=== PATIENT | male | born 1995 | race Caucasian/White ===

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

== ENCOUNTER 2017-01-20 13:19 | Emergency (ER) | payer BC, OTHER ==
[~2017-01-20] VITALS: Ht 193 cm; Wt 65.0 kg
[~2017-01-20 13:19] MED LIST changes: +ARIP1TAB13 PO; +CLON-409 PO; +CLON1 PO; +ESCI20TA PO; +LEVO.075 PO; +LIPI10TA PO; +NEUR400C PO; +TOPA100T11 PO
[2017-01-20 13:43] VITALS: BP 134/76; PULSE 96; RESP 18; TEMP 98.7; O2SAT 99
[2017-01-20 15:16] LABS: AUTOMATED NEUTROPHIL # 5.2 TH/MM3 (1.8-7.7); BASOPHIL # 0.1 TH/MM3 (0-0.2); EOSINOPHIL # 0.3 TH/MM3 (0-0.4); EOSINOPHIL % 4.1 % (0.0-4.0); HEMATOCRIT 35.4 % (39.0-51.0); LYMPH % 22.3 % (9.0-44.0); LYMPHOCYTE # 1.8 TH/MM3 (1.0-4.8); MEAN CORPUSCULAR HEMOGLOBIN 21.4 PG (27.0-34.0); MONO % 8.9 % (0.0-8.0); NEUT % 63.7 % (16.0-70.0); PLATELET COUNT 267 TH/MM3 (150-450); RED BLOOD COUNT 5.13 MIL/MM3 (4.50-5.90); RED CELL DISTRIBUTION WIDTH 19.5 % (11.6-17.2); WHITE BLOOD COUNT 8.1 TH/MM3 (4.0-11.0)
[2017-01-20 15:19] LABS: HEMO FLAGS AUTO DIFF
[2017-01-20 15:32] LABS: ALT (GPT) 36 U/L (9-52); ANION GAP 8 MEQ/L (5-15); AST (GOT) 32 U/L (15-39); BICARBONATE 25.9 MEQ/L (21.0-32.0); BLOOD UREA NITROGEN 16 MG/DL (7-18); CHLORIDE 110 MEQ/L (98-107); GLOMERULAR FILTRATION RATE 118 ML/MIN (>89); SODIUM (NA) 144 MEQ/L (136-145)
[2017-01-20 15:33] LABS: ALKALINE PHOSPHATASE 119 U/L (45-117); TOTAL BILIRUBIN ADULT 0.2 MG/DL (0.2-1.0)
[2017-01-20 15:48] LABS: OVALOCYTES 1+ (NORMAL); PLATELET ESTIMATE SMEAR NORMAL (NORMAL); PLATELET MORPHOLOGY NORMAL (NORMAL); SCAN/DIFF AUTO DIFF CONFIRMED
[2017-01-20] MEDS ORDERED: AMMONIA AROMATIC INHALANT 0.33 ML ONE (15:53)
[2017-01-20] MEDS ORDERED: [UNRECOGNIZED DRUG - CODE] PO (16:02)
[2017-01-20] MEDS ORDERED: OLAN5TAB PO (16:02)
[2017-01-20 17:48] VITALS: BP 128/77; PULSE 92; RESP 18; TEMP 97.4; O2SAT 99
[2017-01-20] MEDS ORDERED: OLANZapine IM 10 MG VIAL IM ONE (19:30)
[2017-01-20] MEDS ORDERED: LORazepam 2 MG/ML VIAL IM ONE (19:30)
--- NOTE | 2017-01-20 19:30 | PD ---
HPI Chief Complaint: Psychiatric Symptoms Time Seen by Provider: 14:08 Travel History International Travel<30 days: No Contact w/Intl Traveler<30days: No Traveled to known affect area: No History of Present Illness HPI This is a 21-year-old male who has a history of autism spectrum disorder and behavioral problems who presents to the emergency department having been running away from his mom and running into traffic. She felt like she couldn't control him so she put him under a Fuentes act. He also made several statements that he wanted to hurt her. [facility] Past Medical History ADHD: No Arthritis: Yes (JRA) Asthma: Yes Autoimmune Disease: Yes (decreased IGA, ?JRA, MEN1) Blood Disorders: No Bipolar Disorder: Yes Weight (Kg): 3 Anxiety: No Depression: No Cardiovascular Problems: Yes (DISAUTONOMIA) Chemotherapy: No Chest Pain: No Congestive Heart Failure: No COPD: No Cerebrovascular Accident: No Developmental Delay: No Diminished Hearing: No Endocrine: Yes Gastrointestinal Disorders: Yes (WEIGHT LOSS, INTERMITTENT REFLUX) GERD: Yes Genitourinary: No Hepatitis: No Hiatal Hernia: No Hypertension: No Immune Disorder: Yes (JRA) Implanted Vascular Access Dvce: Yes (PEG TUBE/INFUSA PORT) Medical other: Yes (MITROCHONDRIAL COMPLEX 1, , SPASTIC PARAPALEGIC, DYSAUTOMONY, MEN 1) Musculoskeletal: Yes (MITOCHONDRIAL COMPLEX 1) Neurologic: Yes (AUTISTIC,SEIZURES) Psychiatric: Yes Reproductive: No Respiratory: Yes (IGA DEFICIENCY) Immunizations Current: Yes Migraines: Yes (DAILY ) Radiation Therapy: No Renal Failure: No Seizures: Yes ( ) Sickle Cell Disease: No Sleep Apnea: No Thyroid Disease: Yes Ulcer: No Past Surgical History Abdominal Surgery: Yes (G TUBE X2) AICD: No Body Medical Devices: peg tube Cardiac Surgery: No Section: Yes Ear Surgery: No Endocrine Surgery: No Eye Surgery: No Genitourinary Surgery: No Gynecologic Surgery: No Insulin Pump: No Joint Replacement: No Neurologic Surgery: No Oral Surgery: No Pacemaker: No Thoracic Surgery: No Tonsillectomy: Yes Tympanostomy Tube: Yes (X2) Other Surgery: Yes (RHINOPLASTY) Social History Alcohol Use: No Tobacco Use: No Substance Use: No Allergies-Medications (Allergen,Severity, Reaction): Coded Allergies: Ceftin (Verified Allergy, Severe, RASH, 01/20/17) Per Mom. Latex (Verified Allergy, Severe, 01/20/17) TONGUE ITCHES Per Mom. Trileptal (Verified Allergy, Severe, NEURO TOXIC, 01/20/17) Per Mom. Reported Meds & Prescriptions Reported Meds & Active Scripts Active Topamax (Topiramate) 100 Mg Tab 300 Mg PO BID Synthroid (Levothyroxine Sodium) 75 Mcg Tab 75 Mcg PO DAILY@0600 Hydroxyzine HCl 50 Mg Tab 100 Mg PO HS Neurontin (Gabapentin) 400 Mg Cap 800 Mg PO TID Escitalopram (Escitalopram Oxalate) 20 Mg Tab 20 Mg PO DAILY Klonopin (Clonazepam) 1 Mg Tab 1 Mg PO BID Lipitor (Atorvastatin Calcium) 10 Mg Tab 10 Mg PO HS Aripiprazole 15 Mg Tab 15 Mg PO BID Lactulose Liq (Lactulose) 10 Gm/15 Ml Soln 30 Ml PO Q6H 10 Days Reported Olanzapine 5 Mg Tab 5 Mg PO BID Kapvay ER 12 HR (Clonidine HCl) 0.1 Mg Tab 0.2 Mg PO BID Vitamin D3 (Cholecalciferol) 2,000 Unit Tab 4,000 Units PO HS Zyrtec Allergy (Cetirizine HCl) 10 Mg Cap 10 Mg PO HS Nodolor 325-65-100 mg (Isometheptene-Dichloralphenazo) 1 Cap Cap 2 Cap PO AT ONSET OF HEADACHE PRN Fludrocortisone (Fludrocortisone Acetate) 0.1 Mg Tab 0.1 Mg PO BID Zofran (Ondansetron HCl) 4 Mg Tab 4 Mg PO Q6HR PRN Omeprazole 40 Mg Cap 40 Mg PO BID Mobic (Meloxicam) 7.5 Mg Tab 7.5 Mg PO DAILY Lorazepam 2 Mg Tab 2 Mg PO Q6H PRN Gaviscon Extra Strength (Aluminum Hydroxide-Mag Carb) 160-105 mg Chew 2 Tab CHEW HS Maximum 16 tabs/24 hrs. Clonazepam 2 Mg Tab 2 Mg PO NOON Review of Systems Except as stated in HPI: all other systems reviewed are Neg Physical Exam Narrative GENERAL:Well appearing, no acute distress SKIN: Focused skin assessment warm and dry. HEAD: Atraumatic. Normocephalic. EYES: Pupils equal and round. No injection or drainage. ENT: Moist mucous membranes NECK: Trachea midline. CARDIOVASCULAR: Regular rate and rhythm. No murmur appreciated. RESPIRATORY: Clear to auscultation. Breath sounds equal bilaterally. GASTROINTESTINAL: Abdomen soft, non-tender, nondistended. MUSCULOSKELETAL: No obvious deformities. NEUROLOGICAL: Awake and alert. No obvious cranial nerve deficits. Moving all extremities. PSYCHIATRIC: Poor insight and judgment. Data Data Last Documented VS Vital Signs Date Time Temp Pulse Resp B/P Pulse Ox O2 Delivery O2 Flow Rate FiO2 01/20/17 17:48 97.4 92 18 128/77 99 Room Air Orders Complete Blood Count With Diff (01/20/17 14:08) Comprehensive Metabolic Panel (01/20/17 14:08) Alcohol (Ethanol) (01/20/17 14:08) Drug Screen, Random Urine (01/20/17 14:08) Ammonia Aromatic Inhalant (Aromatic Ammo (01/20/17 15:53) Psych Screen (01/20/17 17:06) Olanzapine Inj (Zyprexa Inj) (01/20/17 19:30) Lorazepam Inj (Ativan Inj) (01/20/17 19:30) Labs Laboratory Tests Test 01/20/17 14:50 White Blood Count 8.1 TH/MM3 Red Blood Count 5.13 MIL/MM3 Hemoglobin 11.0 GM/DL Hematocrit 35.4 % Mean Corpuscular Volume 69.0 FL Mean Corpuscular Hemoglobin 21.4 PG Mean Corpuscular Hemoglobin 31.0 % Concent Red Cell Distribution Width 19.5 % Platelet Count 267 TH/MM3 Mean Platelet Volume 7.0 FL Neutrophils (%) (Auto) 63.7 % Lymphocytes (%) (Auto) 22.3 % Monocytes (%) (Auto) 8.9 % Eosinophils (%) (Auto) 4.1 % Basophils (%) (Auto) 1.0 % Neutrophils # (Auto) 5.2 TH/MM3 Lymphocytes # (Auto) 1.8 TH/MM3 Monocytes # (Auto) 0.7 TH/MM3 Eosinophils # (Auto) 0.3 TH/MM3 Basophils # (Auto) 0.1 TH/MM3 CBC Comment AUTO DIFF Differential Comment AUTO DIFF CONFIRMED Platelet Estimate NORMAL Platelet Morphology Comment NORMAL Ovalocytes 1+ Sodium Level 144 MEQ/L Potassium Level 4.0 MEQ/L Chloride Level 110 MEQ/L Carbon Dioxide Level 25.9 MEQ/L Anion Gap 8 MEQ/L Blood Urea Nitrogen 16 MG/DL Creatinine 0.84 MG/DL Estimat Glomerular Filtration 118 ML/MIN Rate Random Glucose 87 MG/DL Calcium Level 8.8 MG/DL Total Bilirubin 0.2 MG/DL Aspartate Amino Transf 32 U/L (AST/SGOT) Alanine Aminotransferase 36 U/L (ALT/SGPT) Alkaline Phosphatase 119 U/L Total Protein 6.8 GM/DL Albumin 3.7 GM/DL Ethyl Alcohol Level LESS THAN 3 MG/DL MDM Medical Decision Making Medical Screen Exam Complete: Yes Emergency Medical Condition: Yes Interpretation(s) No leukocytosis Microcytic anemia Electrolytes are reassuring Differential Diagnosis Behavioral outburst, autism spectrum disorder, depression, psychosis, delirium Narrative Course This is a 21-year-old male who has a history of autism spectrum disorder who presents to the emergency department having been brought in under a Fuentes act due to defiant behavior against his mother. Here in the emergency department patient does not provide any history to support the Fuentes act. He did at one point get out of bed and lay on the floor and appear unresponsive. He immediately responded to an ammonia capsule so I suspect this was a behavioral outburst as well. Patient will be evaluated by psychiatry. His labs are all reassuring. Labs were obtained which were reassuring. I think is appropriate for psychiatric evaluation. Radha Lynn MD January 20, 2017 19:30
[2017-01-21 02:30] VITALS: BP 149/84; PULSE 86; RESP 18; O2SAT 97
[2017-01-21 03:35] VITALS: BP 143/86; PULSE 100; RESP 17; O2SAT 97
--- NOTE | 2017-01-21 04:15 | RADRPT ---
EXAM DATE/TIME: 01/21/2017 04:01 [place] COMPARISON: CT BRAIN W/O CONTRAST, December 21, 2016, 5:23. INDICATIONS : Syncope. Patient hit head on floor. RADIATION DOSE: 56.37 CTDIvol (mGy) MEDICAL HISTORY : Cardiovascular disease. Seizures. Autistic. SURGICAL HISTORY : None. ENCOUNTER: Initial ACUITY: 1 day PAIN SCALE: 0/10 LOCATION: cranial TECHNIQUE: Multiple contiguous axial images were obtained of the head. Using automated exposure control and adj ustment of the mA and/or kV according to patient size, radiation dose was kept as low as reasonably a chievable to obtain optimal diagnostic quality images. FINDINGS: CEREBRUM: The ventricles are normal for age. No evidence of midline shift, mass lesion, hemorrhage or acute in farction. No extra-axial fluid collections are seen. POSTERIOR FOSSA: The cerebellum and brainstem are intact. The 4th ventricle is midline. The cerebellopontine angle i s unremarkable. EXTRACRANIAL: The visualized portion of the orbits is intact. SKULL: The calvaria is intact. No evidence of skull fracture. CONCLUSION: Normal examination for a patient of this age. No significant change has occurred. Cornell Pitts MD on January 21, 2017 at 4:13 Board Certified Radiologist. This report was verified electronically.
[2017-01-21] MEDS ORDERED: LORazepam 2 MG/ML VIAL IM ONE (05:45)
[2017-01-21] MEDS ORDERED: diphenhydrAMINE HCL 50 MG/ML VIAL IM ONE (05:45)
--- NOTE | 2017-01-21 05:45 | PD ---
Physical Exam Date Seen by Provider: January 21, 2017 Time Seen by Provider: 05:18 Narrative GENERAL: This is a well-nourished, well-developed patient, in no apparent distress. Patient in 4 point restraints. SKIN: No rashes, ecchymoses or lesions. Warm and dry. HEAD: Atraumatic. Normocephalic. EYES: PERRL, EOMI, no discharge or injection. No scleral icterus. EARS: Clear NOSE: Nasal turbinates appear normal. THROAT: Mucosa pink and moist. Airway patent. NECK: Trachea midline. supple, moves head freely. LUNGS: Clear to auscultation. CV: Regular in rhythm. ABDOMEN: Soft nontender. EXT: No clubbing cyanosis or edema. Data Data Last Documented VS Vital Signs Date Time Temp Pulse Resp B/P Pulse Ox O2 Delivery O2 Flow Rate FiO2 01/21/17 03:35 100 17 143/86 97 Room Air 01/20/17 17:48 97.4 Orders Complete Blood Count With Diff (01/20/17 14:08) Comprehensive Metabolic Panel (01/20/17 14:08) Alcohol (Ethanol) (01/20/17 14:08) Drug Screen, Random Urine (01/20/17 14:08) Ammonia Aromatic Inhalant (Aromatic Ammo (01/20/17 15:53) Psych Screen (01/20/17 17:06) Olanzapine Inj (Zyprexa Inj) (01/20/17 19:30) Lorazepam Inj (Ativan Inj) (01/20/17 19:30) Ct Brain W/O Iv Contrast(Rout) (01/21/17 ) Diet Regular Basic (01/21/17 Breakfast) Lorazepam Inj (Ativan Inj) (01/21/17 05:45) Diphenhydramine Inj (Benadryl Inj) (01/21/17 05:45) Labs Laboratory Tests Test 01/20/17 14:50 White Blood Count 8.1 TH/MM3 Red Blood Count 5.13 MIL/MM3 Hemoglobin 11.0 GM/DL Hematocrit 35.4 % Mean Corpuscular Volume 69.0 FL Mean Corpuscular Hemoglobin 21.4 PG Mean Corpuscular Hemoglobin 31.0 % Concent Red Cell Distribution Width 19.5 % Platelet Count 267 TH/MM3 Mean Platelet Volume 7.0 FL Neutrophils (%) (Auto) 63.7 % Lymphocytes (%) (Auto) 22.3 % Monocytes (%) (Auto) 8.9 % Eosinophils (%) (Auto) 4.1 % Basophils (%) (Auto) 1.0 % Neutrophils # (Auto) 5.2 TH/MM3 Lymphocytes # (Auto) 1.8 TH/MM3 Monocytes # (Auto) 0.7 TH/MM3 Eosinophils # (Auto) 0.3 TH/MM3 Basophils # (Auto) 0.1 TH/MM3 CBC Comment AUTO DIFF Differential Comment AUTO DIFF CONFIRMED Platelet Estimate NORMAL Platelet Morphology Comment NORMAL Ovalocytes 1+ Sodium Level 144 MEQ/L Potassium Level 4.0 MEQ/L Chloride Level 110 MEQ/L Carbon Dioxide Level 25.9 MEQ/L Anion Gap 8 MEQ/L Blood Urea Nitrogen 16 MG/DL Creatinine 0.84 MG/DL Estimat Glomerular Filtration 118 ML/MIN Rate Random Glucose 87 MG/DL Calcium Level 8.8 MG/DL Total Bilirubin 0.2 MG/DL Aspartate Amino Transf 32 U/L (AST/SGOT) Alanine Aminotransferase 36 U/L (ALT/SGPT) Alkaline Phosphatase 119 U/L Total Protein 6.8 GM/DL Albumin 3.7 GM/DL Ethyl Alcohol Level LESS THAN 3 MG/DL MDM Medical Record Reviewed: Yes Supervised Visit with LASHONDA: Yes Interpretation(s) CBC & BMP Diagram 01/20/17 14:50 Differential Diagnosis MDM: High Differential diagnoses: Schizophrenia, schizoaffective disorder, bipolar, anxiety, depression, adjustment reaction, mood disorder NOS, ODD, depressive disorder NOS, dementia, dementia with agitation, psychosis NOS, substance induced mood disorder, intermittent explosive disorder, Asperger syndrome, infection,electrolyte abnormality, malingering. Narrative Course Mental health screening discussed with the patient. Psychiatric screen ordered. I was notified a little after 5 AM that the patient had become increasingly disruptive and was attempting to pull the fire alarm therefore he was placed in restraints area the patient has continued to be uncooperative and disruptive. He is given Ativan 2 mg IM and Benadryl 50 mg IM. The patient will be taken out of restraints per protocol. Nonviolent restraint order had been placed. A medical clearance exam has been performed. Diagnosis Primary Impression: Medical clearance for psychiatric admission Condition: Stable [place] Ayon January 21, 2017 05:45
[2017-01-21 06:00] VITALS: BP 143/84; PULSE 78; RESP 18; O2SAT 98
[2017-01-21 10:07] VITALS: BP 153/97; PULSE 121
--- NOTE | 2017-01-21 11:20 | PD.CONS ---
Provisional Diagnosis Admission Date [place]. Adjustment disorder with disturbance of conduct, autism spectrum disorder, schizoaffective disorder History of Present Illness Service Psychiatry Consult Requested By Primary Care Physician Loulou Nielson MD HPI The patient is a 21 years old man, domicile with his mother and poor [place], well known by this service, psychiatric history of autism spectrum disorder, schizoaffective disorder, aggressive behavior, multiple psychiatric hospitalizations, he has acted outpatient care, who was brought this time to the ER under Fuentes act because after an argument with mother he went to the police station and asked to be Fuentes acted due to homicidal ideation against his mother. Patient was seen for psychiatric evaluation in the J pod, he is calm, cooperative. Last night, as per nurses, was disruptive and aggressive with nurses needing ETO. But, now no agitation or aggressive behavior present. He denies that he actually told to the police that he wanted to kill his mother. He says that he just had an argument with her. He reports good mood, he denies anxiety, he denies perceptual disturbances, he denies suicidal or homicidal ideation, he denies visual and auditory hallucinations. He says that yesterday he just had an argument with his mother, he thought that he would be safer in the hospital. He denies the use of drugs and alcohol. Review of Systems Constitutional: DENIES: Diaphoretic episodes, Fatigue, Fever, Weight gain, Weight loss, Chills, Dizziness, Change in appetite, Night Sweats Endocrine: DENIES: Heat/cold intolerance, Polydipsia, Polyuria, Polyphagia Eyes: DENIES: Blurred vision, Diplopia, Eye inflammation, Eye pain, Vision loss , Photosensitivity, Double Vision Ears, nose, mouth, throat: DENIES: Tinnitus, Hearing loss, Vertigo, Nasal discharge, Oral lesions, Throat pain, Hoarseness, Ear Pain, Running Nose, Epistaxis, Sinus Pain, Toothache, Odynophagia Respiratory: DENIES: Apneas, Cough, Snoring, Wheezing, Hemoptysis, Sputum production, Shortness of breath Cardiovascular: DENIES: Chest pain, Palpitations, Syncope, Dyspnea on Exertion , PND, Lower Extremity Edema, Orthopnea, Claudication Gastrointestinal: DENIES: Abdominal pain, Black stools, Bloody stools, Constipation, Diarrhea, Nausea, Vomiting, Difficulty Swallowing, Anorexia Genitourinary: DENIES: Sexual dysfunction, Urinary frequency, Urinary incontinence, Urgency, Hematuria, Dysuria, Nocturia, Penile Discharge, Testicular Pain, Testicular Swelling Musculoskeletal: DENIES: Joint pain, Muscle aches, Stiffness, Joint Swelling, Back pain, Neck pain Integumentary: DENIES: Abnormal pigmentation, Nail changes, Pruritus, Rash Hematologic/lymphatic: DENIES: Bruising, Lymphadenopathy Neurologic: DENIES: Abnormal gait, Headache, Localized weakness, Paresthesias, Seizures, Speech Problems, Tremor, Poor Balance Psychiatric: DENIES: Anxiety, Confusion, Mood changes, Depression, Hallucinations, Agitation, Suicidal Ideation, Homicidal Ideation, Delusions Past Family Social History Coded Allergies: Ceftin (Verified Allergy, Severe, RASH, 01/20/17) Per Mom. Latex (Verified Allergy, Severe, 01/20/17) TONGUE ITCHES Per Mom. Trileptal (Verified Allergy, Severe, NEURO TOXIC, 01/20/17) Per Mom. Active Scripts Topiramate (Topamax)100 Mg [id number] Mg PO BID #60 TAB Prov:Luis Cruz MD 12/23/16 Levothyroxine (Synthroid)75 Mcg Tab75 Mcg PO DAILY@0600 #30 TAB Prov:Luis Cruz MD 12/23/16 Hydroxyzine HCl 50 Mg [id number] Mg PO HS #30 TAB Prov:Luis Cruz MD 12/23/16 Gabapentin (Neurontin)400 Mg [id number] Mg PO TID #90 CAP Prov:Luis Cruz MD 12/23/16 Escitalopram 20 Mg Tab20 Mg PO DAILY #30 TAB Prov:Luis Cruz MD 12/23/16 Clonazepam (Klonopin)1 Mg Tab1 Mg PO BID #30 TAB Prov:Luis Cruz MD 12/23/16 Atorvastatin (Lipitor)10 Mg Tab10 Mg PO HS #30 TAB Prov:Luis Cruz MD 12/23/16 Aripiprazole 15 Mg Tab15 Mg PO BID #30 TAB Prov:Luis Cruz MD 12/23/16 Lactulose Liq 10 Gm/15 Ml Soln30 Ml PO Q6H 10 Days Ref 0 Prov:Alka Viera MD 10/19/16 Reported Medications Olanzapine 5 Mg Tab5 Mg PO BID #60 TAB Ref 0 01/20/17 Clonidine ER 12 HR (Kapvay ER 12 HR)0.1 Mg Tab0.2 Mg PO BID #30 TAB Ref 0 01/20/17 Cholecalciferol (Vitamin D3)2,000 Unit Tab4,000 Units PO HS #1 BOTTLE Ref 0 10/19/16 Cetirizine (Zyrtec Allergy)10 Mg Cap10 Mg PO HS Ref 0 09/23/16 Isometheptene-Dichloralphenazo (Nodolor 325-65-100 mg)1 Cap Cap2 Cap PO AT ONSET OF HEADACHE PRN (HEADACHE) 09/23/16 Fludrocortisone 0.1 Mg Tab0.1 Mg PO BID #30 TAB Ref 0 08/24/16 Ondansetron (Zofran)4 Mg Tab4 Mg PO Q6HR PRN (NAUSEA OR VOMITING) Ref 0 08/23/16 Omeprazole 40 Mg Cap40 Mg PO BID #30 CAP Ref 0 08/23/16 Meloxicam (Mobic)7.5 Mg Tab7.5 Mg PO DAILY Ref 0 08/23/16 Lorazepam 2 Mg Tab2 Mg PO Q6H PRN (ANXIETY) Ref 0 08/23/16 Aluminum Hydroxide-Mag Carb (Gaviscon Extra Strength)160-105 mg Chew2 Tab CHEW HS Maximum 16 tabs/24 hrs. 08/23/16 Clonazepam 2 Mg Tab2 Mg PO NOON #60 TAB Ref 0 08/23/16 Discontinued Reported Medications Clonazepam 1 Mg Tab1 Mg PO BID #60 TAB Ref 0 08/23/16 Discontinued Scripts Olanzapine 5 Mg Tab5 Mg PO DAILY #30 TAB Prov:Luis Cruz MD 12/23/16 Clonidine (Catapres)0.2 Mg Tab0.2 Mg PO Q12HR #60 TAB Prov:Luis Cruz MD 12/23/16 Family History No psychiatric family history Social History man, who lives with his mother and poor [place], unemployed, single, supported by mother Physical Exam Vital Signs Vital Signs Date Time Temp Pulse Resp B/P Pulse Ox O2 Delivery O2 Flow Rate FiO2 01/21/17 10:07 121 153/97 01/21/17 07:30 18 01/21/17 06:00 98 Room Air 5/11/17 17:48 97.4 Mental Status Examination Appearance young adult, tall and robust , calm and cooperative Speech: Unremarkable Orientation: x3 Memory: Unremarkable Thought Process: Logical Thought Content: Unremarkable Hallucination Type: None Suicidal Ideation: No Previous Suicide Attempts: No Homicidal Ideation: No Previous Homicide Attempts: No Judgment: WNL Affect: Good Mood: Appropriate Motor Activity: Normal gait Assessment & Plan Problem List: (1) Adjustment disorder with disturbance of conduct Assessment & Plan: At the moment of this evaluation the patient does not present any evidence of acute depression, anxiety, johnny or psychosis. Patient does not present any aggressiveness or agitation. He denies suicidal or homicidal ideation, he denies visual and auditory hallucinations. Patient has an extensive history of manipulative behavior and bringing himself to the hospital in order to run away of his mother. Recent homicidal statement to the police was most probably part of his behavioral problems. Patient does not meet criteria for psychiatric admission at this moment. Extensive psychoeducation, motivation psycho education provided. ICD Code: F43.24 Assessment & Plan Estimated LOS: Luis Bauer MD January 21, 2017 11:20
== END 2017-01-21 12:12 | disposition home or self-care (01) ==
LOC: NEPC 13:19 → NEPJ 01-21 12:12
DX: F84.0 Autistic disorder (principal); F43.24 Adjustment disorder with disturbance of conduct; F25.9 Schizoaffective disorder, unspecified; F31.9 Bipolar disorder, unspecified; R45.850 Homicidal ideations
CPT/HCPCS: 70450; 80053; 80307; 85025; 96372; 99285; J1200; J2060

== ENCOUNTER 2017-01-22 08:47 | Inpatient (IN) | payer BC, OTHER ==
[~2017-01-22] VITALS: Ht 190.5 cm; Wt 121.8 kg
[~2017-01-22 08:47] MED LIST changes: -ABIL15TA2 PO; -CLON-409 PO; -CLON.2 PO; -CLON1TAB PO; -LEVO75TA3 PO; -LEXA20TA PO; -NEUR800T PO; -TOPI1TAB31 PO; +[UNRECOGNIZED DRUG - CODE] PO
[2017-01-22 08:52] VITALS: BP 133/72; PULSE 99; RESP 18; TEMP 99.5; O2SAT 100
--- NOTE | 2017-01-22 09:32 | PD ---
HPI Chief Complaint: Psychiatric Symptoms Time Seen by Provider: 09:20 Travel History International Travel<30 days: No Contact w/Intl Traveler<30days: No Traveled to known affect area: No History of Present Illness HPI 21yo M with PMH of autism disorder and behavior problem presents to the ED under phipps act because he was combative with his parents and ran away from home. He exclaimed he would kill himself in front of [place] [employer] and [employer]. Pt has been here multiple times for this and was seen 01/20/17 when he ran away from mother. Pt states he does not want to go back home. No signs of trauma on him. PFSH Past Medical History ADHD: No Arthritis: Yes (JRA) Asthma: Yes Autoimmune Disease: Yes (decreased IGA, ?JRA, MEN1) Blood Disorders: No Bipolar Disorder: Yes Weight (Kg): 3 Anxiety: No Depression: No Cardiovascular Problems: Yes (DISAUTONOMIA) Chemotherapy: No Chest Pain: No Congestive Heart Failure: No COPD: No Cerebrovascular Accident: No Developmental Delay: No Diminished Hearing: No Endocrine: Yes Gastrointestinal Disorders: Yes (WEIGHT LOSS, INTERMITTENT REFLUX) GERD: Yes Genitourinary: No Hepatitis: No Hiatal Hernia: No Hypertension: No Immune Disorder: Yes (JRA) Implanted Vascular Access Dvce: Yes (PEG TUBE/INFUSA PORT) Medical other: Yes (MITROCHONDRIAL COMPLEX 1MD, SPASTIC PARAPALEGIC, DYSAUTOMONY, MEN 1) Musculoskeletal: Yes (MITOCHONDRIAL COMPLEX 1) Neurologic: Yes (AUTISTIC,SEIZURES) Psychiatric: Yes Reproductive: No Respiratory: Yes (IGA DEFICIENCY) Immunizations Current: Yes Migraines: Yes (DAILY ) Radiation Therapy: No Renal Failure: No Seizures: Yes ( ) Sickle Cell Disease: No Sleep Apnea: No Thyroid Disease: Yes Ulcer: No Past Surgical History Abdominal Surgery: Yes (G TUBE X2) AICD: No Body Medical Devices: peg tube Cardiac Surgery: No Ear Surgery: No Endocrine Surgery: No Eye Surgery: No Genitourinary Surgery: No Gynecologic Surgery: No Insulin Pump: No Joint Replacement: No Neurologic Surgery: No Oral Surgery: No Pacemaker: No Thoracic Surgery: No Tonsillectomy: Yes Tympanostomy Tube: Yes (X2) Other Surgery: Yes (RHINOPLASTY) Social History Alcohol Use: No Tobacco Use: No Substance Use: No Allergies-Medications (Allergen,Severity, Reaction): Coded Allergies: Ceftin (Verified Allergy, Severe, RASH, 01/22/17) Per Mom. Latex (Verified Allergy, Severe, 01/22/17) TONGUE ITCHES Per Mom. Trileptal (Verified Allergy, Severe, NEURO TOXIC, 01/22/17) Per Mom. Reported Meds & Prescriptions Reported Meds & Active Scripts Active Topamax (Topiramate) 100 Mg Tab 300 Mg PO BID Synthroid (Levothyroxine Sodium) 75 Mcg Tab 75 Mcg PO DAILY@0600 Hydroxyzine HCl 50 Mg Tab 100 Mg PO HS Neurontin (Gabapentin) 400 Mg Cap 800 Mg PO TID Escitalopram (Escitalopram Oxalate) 20 Mg Tab 20 Mg PO DAILY Klonopin (Clonazepam) 1 Mg Tab 1 Mg PO BID Lipitor (Atorvastatin Calcium) 10 Mg Tab 10 Mg PO HS Aripiprazole 15 Mg Tab 15 Mg PO BID Lactulose Liq (Lactulose) 10 Gm/15 Ml Soln 30 Ml PO Q6H 10 Days Reported Olanzapine 5 Mg Tab 5 Mg PO BID Kapvay ER 12 HR (Clonidine HCl) 0.1 Mg Tab 0.2 Mg PO BID Vitamin D3 (Cholecalciferol) 2,000 Unit Tab 4,000 Units PO HS Zyrtec Allergy (Cetirizine HCl) 10 Mg Cap 10 Mg PO HS Nodolor 325-65-100 mg (Isometheptene-Dichloralphenazo) 1 Cap Cap 2 Cap PO AT ONSET OF HEADACHE PRN Fludrocortisone (Fludrocortisone Acetate) 0.1 Mg Tab 0.1 Mg PO BID Zofran (Ondansetron HCl) 4 Mg Tab 4 Mg PO Q6HR PRN Omeprazole 40 Mg Cap 40 Mg PO BID Mobic (Meloxicam) 7.5 Mg Tab 7.5 Mg PO DAILY Lorazepam 2 Mg Tab 2 Mg PO Q6H PRN Gaviscon Extra Strength (Aluminum Hydroxide-Mag Carb) 160-105 mg Chew 2 Tab CHEW HS Maximum 16 tabs/24 hrs. Clonazepam 2 Mg Tab 2 Mg PO NOON Review of Systems Except as stated in HPI: all other systems reviewed are Neg Physical Exam Narrative GENERAL: 21yo M not in distress. SKIN: Port in right chest. HEAD: Atraumatic. Normocephalic. EYES: Pupils equal and round at 4mm bilaterally. EOMI. No scleral icterus. No injection or drainage. ENT: No midline ttp. NECK: Trachea midline. No JVD. CARDIOVASCULAR: Regular rate and rhythm. No murmur appreciated. RESPIRATORY: No accessory muscle use. Clear to auscultation. Breath sounds equal bilaterally. GASTROINTESTINAL: Abdomen soft, non-tender, nondistended. G-tube site. MUSCULOSKELETAL: No obvious deformities. No clubbing. No cyanosis. No edema. NEUROLOGICAL: Awake and alert. No obvious cranial nerve deficits. Motor grossly within normal limits. Normal speech. Developmental delay. Data Data Last Documented VS Vital Signs Date Time Temp Pulse Resp B/P Pulse Ox O2 Delivery O2 Flow Rate FiO2 01/23/17 14:00 98.6 100 16 136/86 98 01/23/17 11:38 Room Air Orders Complete Blood Count With Diff (01/22/17 09:21) Comprehensive Metabolic Panel (01/22/17 09:21) Psych Screen (01/22/17 09:21) Drug Screen, Random Urine (01/22/17 09:21) Alcohol (Ethanol) (01/22/17 09:21) Salicylates (Aspirin) (01/22/17 09:21) Tylenol (Acetaminophen) (01/22/17 09:21) Ct Brain W/O Iv Contrast(Rout) (01/22/17 ) Ct Facial Bones W/O Iv Cont (01/22/17 ) Restraints Non-Violent CARMELITA.Q3H (01/22/17 11:12) Haloperidol Inj (Haldol Inj) (01/22/17 11:45) Patient Care Technician / Telemetry CARMELITA.Q8H (01/22/17 14:04) Heparin Central Flush (Heparin Central F (01/22/17 16:15) Diet Regular Basic (01/22/17 Dinner) Ibuprofen (Motrin) (01/22/17 17:15) Restraints Non-Violent CARMELITA.Q3H (01/22/17 20:11) Ammonia (01/22/17 21:51) Topiramate (Topamax) (01/22/17 22:00) Hydroxyzine Hcl (Atarax) (01/22/17 22:00) Gabapentin (Neurontin) (01/22/17 22:00) Aripiprazole (Abilify) (01/22/17 22:00) Clonidine (Catapres) (01/22/17 22:00) Lorazepam (Ativan) (01/22/17 22:00) Olanzapine (Zyprexa) (01/22/17 22:00) Diet Regular Basic (01/23/17 Breakfast) Ibuprofen (Motrin) (01/23/17 06:45) Ibuprofen (Motrin) (01/23/17 11:30) Diet Regular Basic (01/23/17 Lunch) Labs Laboratory Tests Test 01/22/17 01/23/17 01/23/17 09:10 00:05 00:22 White Blood Count 6.9 TH/MM3 Red Blood Count 4.92 MIL/MM3 Hemoglobin 10.5 GM/DL Hematocrit 33.5 % Mean Corpuscular Volume 68.1 FL Mean Corpuscular Hemoglobin 21.3 PG Mean Corpuscular Hemoglobin 31.3 % Concent Red Cell Distribution Width 19.9 % Platelet Count 280 TH/MM3 Mean Platelet Volume 7.1 FL Neutrophils (%) (Auto) 53.5 % Lymphocytes (%) (Auto) 29.9 % Monocytes (%) (Auto) 11.1 % Eosinophils (%) (Auto) 4.6 % Basophils (%) (Auto) 0.9 % Neutrophils # (Auto) 3.7 TH/MM3 Lymphocytes # (Auto) 2.1 TH/MM3 Monocytes # (Auto) 0.8 TH/MM3 Eosinophils # (Auto) 0.3 TH/MM3 Basophils # (Auto) 0.1 TH/MM3 CBC Comment AUTO DIFF Differential Total Cells 100 Counted Neutrophils % (Manual) 56 % Band Neutrophils % 1 % Lymphocytes % 26 % Monocytes % 7 % Eosinophils % 6 % Basophils % 3 % Neutrophils # (Manual) 4.0 TH/MM3 Metamyelocytes 1 % Differential Comment FINAL DIFF MANUAL Platelet Estimate NORMAL Platelet Morphology Comment NORMAL Ovalocytes 1+ Sodium Level 143 MEQ/L Potassium Level 3.8 MEQ/L Chloride Level 110 MEQ/L Carbon Dioxide Level 24.2 MEQ/L Anion Gap 9 MEQ/L Blood Urea Nitrogen 19 MG/DL Creatinine 0.80 MG/DL Estimat Glomerular Filtration 125 ML/MIN Rate Random Glucose 99 MG/DL Calcium Level 8.7 MG/DL Total Bilirubin 0.2 MG/DL Aspartate Amino Transf 51 U/L (AST/SGOT) Alanine Aminotransferase 41 U/L (ALT/SGPT) Alkaline Phosphatase 115 U/L Total Protein 6.8 GM/DL Albumin 3.5 GM/DL Salicylates Level LESS THAN 1.7 MG/DL Acetaminophen Level LESS THAN 2.0 MCG/ML Ethyl Alcohol Level 4 MG/DL Urine Opiates Screen NEG Urine Barbiturates Screen NEG Urine Amphetamines Screen NEG Urine Benzodiazepines Screen POS Urine Cocaine Screen NEG Urine Cannabinoids Screen NEG Ammonia 71 MCMOL/L MDM Medical Decision Making Medical Screen Exam Complete: Yes Emergency Medical Condition: Yes Differential Diagnosis Behavior disorder vs. adjustment disorder Narrative Course 21yo M with autistic disorder here under phipps act because he exclaimed he wanted to kill himself. He does not want to go home. Labs reviewed, no leukocytosis. H/H low but at baseline. AST mildly elevated. No abdominal pain on exam. Alcohol 4. Acetaminophen and salicylate negative. Pt medically clear for psych evaluation. At 10:30am, pt was in the bathroom and had pulled the talbot. Pt was found on the floor and has had similar episodes before where he acts out. He did have some ecchymoses on left eyebrow so will do CT brain and CT facial. Pt was brought back to bed and woke up when restrains were placed. Neurologically intact. CT brain normal. CT facial showed soft tissue swelling without fracture. Pt was transferred to J pod. At the end of my shift, I was asked to do a face to face with the pt in J pod as he was acting out again. I authorized soft restraints for patient's own safety and safety of others. Pt pending psych evaluation. Instructed psych nurse to call another physician if further intervention is needed. Diagnosis Primary Impression: Adjustment disorder Qualified Code: F43.20 - Adjustment disorder, unspecified type Raquel Dominguez DO January 22, 2017 09:32
[2017-01-22 09:47] LABS: AUTOMATED NEUTROPHIL # 3.7 TH/MM3 (1.8-7.7); BASOPHIL # 0.1 TH/MM3 (0-0.2); BASOPHIL % 0.9 % (0.0-2.0); EOSINOPHIL # 0.3 TH/MM3 (0-0.4); EOSINOPHIL % 4.6 % (0.0-4.0); HEMATOCRIT 33.5 % (39.0-51.0); LYMPH % 29.9 % (9.0-44.0); LYMPHOCYTE # 2.1 TH/MM3 (1.0-4.8); MEAN CELL VOLUME 68.1 FL (80.0-100.0); MEAN CORPUSCULAR HEMOGLOBIN 21.3 PG (27.0-34.0); MEAN CORPUSCULAR HGB CONC 31.3 % (32.0-36.0); MONO % 11.1 % (0.0-8.0); NEUT % 53.5 % (16.0-70.0); PLATELET COUNT 280 TH/MM3 (150-450); RED BLOOD COUNT 4.92 MIL/MM3 (4.50-5.90); RED CELL DISTRIBUTION WIDTH 19.9 % (11.6-17.2); WHITE BLOOD COUNT 6.9 TH/MM3 (4.0-11.0)
[2017-01-22 09:53] LABS: HEMO FLAGS AUTO DIFF
[2017-01-22 10:01] LABS: ANION GAP 9 MEQ/L (5-15)
[2017-01-22 10:04] LABS: ACETAMINOPHEN LESS THAN 2.0 MCG/ML (10.0-30.0); ALKALINE PHOSPHATASE 115 U/L (45-117); ALT (GPT) 41 U/L (9-52); AST (GOT) 51 U/L (15-39); BICARBONATE 24.2 MEQ/L (21.0-32.0); BLOOD UREA NITROGEN 19 MG/DL (7-18); CHLORIDE 110 MEQ/L (98-107); GLOMERULAR FILTRATION RATE 125 ML/MIN (>89); POTASSIUM 3.8 MEQ/L (3.5-5.1); SODIUM (NA) 143 MEQ/L (136-145); TOTAL BILIRUBIN ADULT 0.2 MG/DL (0.2-1.0)
[2017-01-22 10:21] LABS: BANDS 1 % (0-6); BASOPHILS 3 % (0-2); EOSINOPHILS 6 % (0-4); METAMYELOCYTES 1 % (0-1); POLYS (SEG NEUTROPHILS) 56 % (16-70); WBC DIFF SAMPLE 100
[2017-01-22 10:22] LABS: OVALOCYTES 1+ (NORMAL); PLATELET ESTIMATE SMEAR NORMAL (NORMAL); PLATELET MORPHOLOGY NORMAL (NORMAL); SCAN/DIFF FINAL DIFF MANUAL
--- NOTE | 2017-01-22 11:30 | RADRPT ---
EXAM DATE/TIME: 01/22/2017 11:16 [facility] COMPARISON: CT BRAIN W/O CONTRAST, January 21, 2017, 4:01. INDICATIONS : Altered mental status. RADIATION DOSE: 45.89 CTDIvol (mGy) MEDICAL HISTORY : Seizures. Autism. SURGICAL HISTORY : Tonsillectomy. Tympanostomy tubes. ENCOUNTER: Initial ACUITY: 1 day PAIN SCALE: 0/10 LOCATION: cranial TECHNIQUE: Multiple contiguous axial images were obtained of the head. Using automated exposure control and adj ustment of the mA and/or kV according to patient size, radiation dose was kept as low as reasonably a chievable to obtain optimal diagnostic quality images. FINDINGS: CEREBRUM: The ventricles are normal for age. No evidence of midline shift, mass lesion, hemorrhage or acute in farction. No extra-axial fluid collections are seen. POSTERIOR FOSSA: The cerebellum and brainstem are intact. The 4th ventricle is midline. The cerebellopontine angle i s unremarkable. EXTRACRANIAL: The visualized portion of the orbits is intact. SKULL: The calvaria is intact. No evidence of skull fracture. CONCLUSION: Normal examination. Matt Diaz MD on January 22, 2017 at 11:27 Board Certified Radiologist. This report was verified electronically.
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
[2017-01-22] MEDS ORDERED: HALOPERIDOL LACTATE 5 MG/ML AMP IM ONE (11:45)
[2017-01-22 16:11] VITALS: BP 117/71; PULSE 71; RESP 15; TEMP 98.1; O2SAT 95
[2017-01-22] MEDS: IBUPROFEN 400 MG TAB PO PRN (18:03)
[2017-01-22] MEDS ORDERED: cloNIDine HCL 0.2 MG TAB PO ONE (22:00)
[2017-01-22] MEDS ORDERED: hydrOXYzine HCL 50 MG TAB PO ONE (22:00)
[2017-01-22] MEDS ORDERED: OLANZapine 5 MG TAB PO ONE (22:00)
[2017-01-22] MEDS ORDERED: LORazepam 2 MG TAB PO ONE (22:00)
[2017-01-22] MEDS ORDERED: ARIPiprazole 15 MG TAB PO ONE (22:00)
[2017-01-22] MEDS ORDERED: TOPIRAMATE 100 MG TAB PO ONE (22:00)
[2017-01-22] MEDS ORDERED: GABAPENTIN 400 MG CAP PO ONE (22:00)
--- NOTE | 2017-01-22 22:20 | PD ---
Physical Exam Narrative I was asked by psychiatric rn Cecil to possibly check ammonia level per patient's parents concern. As well as possibly getting patient some of his home medications. Data Data Last Documented VS Vital Signs Date Time Temp Pulse Resp B/P Pulse Ox O2 Delivery O2 Flow Rate FiO2 01/23/17 06:27 108 18 171/82 98 01/22/17 16:11 98.1 Room Air Orders Complete Blood Count With Diff (01/22/17 09:21) Comprehensive Metabolic Panel (01/22/17 09:21) Psych Screen (01/22/17 09:21) Drug Screen, Random Urine (01/22/17:21) Alcohol (Ethanol) (01/22/17:21) Salicylates (Aspirin) (01/22/17 09:21) Tylenol (Acetaminophen) (01/22/17 09:21) Ct Brain W/O Iv Contrast(Rout) (01/22/17 ) Ct Facial Bones W/O Iv Cont (01/22/17 ) Restraints Non-Violent CARMELITA.Q3H (01/22/17 11:12) Haloperidol Inj (Haldol Inj) (01/22/17 11:45) Director Of Annual Giving / Telemetry CARMELITA.Q8H (01/22/17 14:04) Heparin Central Flush (Heparin Central F (01/22/17 16:15) Diet Regular Basic (01/22/17 Dinner) Ibuprofen (Motrin) (01/22/17 17:15) Restraints Non-Violent CARMELITA.Q3H (01/22/17 20:11) Ammonia (01/22/17 21:51) Topiramate (Topamax) (01/22/17 22:00) Hydroxyzine Hcl (Atarax) (01/22/17 22:00) Gabapentin (Neurontin) (01/22/17 22:00) Aripiprazole (Abilify) (01/22/17 22:00) Clonidine (Catapres) (01/22/17 22:00) Lorazepam (Ativan) (01/22/17 22:00) Olanzapine (Zyprexa) (01/22/17 22:00) Diet Regular Basic (01/23/17 Breakfast) Ibuprofen (Motrin) (01/23/17 06:45) Labs Laboratory Tests Test 501/23/17 01/23/17 09:10 00:05 00:22 White Blood Count 6.9 TH/MM3 Red Blood Count 4.92 MIL/MM3 Hemoglobin 10.5 GM/DL Hematocrit 33.5 % Mean Corpuscular Volume 68.1 FL Mean Corpuscular Hemoglobin 21.3 PG Mean Corpuscular Hemoglobin 31.3 % Concent Red Cell Distribution Width 19.9 % Platelet Count 280 TH/MM3 Mean Platelet Volume 7.1 FL Neutrophils (%) (Auto) 53.5 % Lymphocytes (%) (Auto) 29.9 % Monocytes (%) (Auto) 11.1 % Eosinophils (%) (Auto) 4.6 % Basophils (%) (Auto) 0.9 % Neutrophils # (Auto) 3.7 TH/MM3 Lymphocytes # (Auto) 2.1 TH/MM3 Monocytes # (Auto) 0.8 TH/MM3 Eosinophils # (Auto) 0.3 TH/MM3 Basophils # (Auto) 0.1 TH/MM3 CBC Comment AUTO DIFF Differential Total Cells 100 Counted Neutrophils % (Manual) 56 % Band Neutrophils % 1 % Lymphocytes % 26 % Monocytes % 7 % Eosinophils % 6 % Basophils % 3 % Neutrophils # (Manual) 4.0 TH/MM3 Metamyelocytes 1 % Differential Comment FINAL DIFF MANUAL Platelet Estimate NORMAL Platelet Morphology Comment NORMAL Ovalocytes 1+ Sodium Level 143 MEQ/L Potassium Level 3.8 MEQ/L Chloride Level 110 MEQ/L Carbon Dioxide Level 24.2 MEQ/L Anion Gap 9 MEQ/L Blood Urea Nitrogen 19 MG/DL Creatinine 0.80 MG/DL Estimat Glomerular Filtration 125 ML/MIN Rate Random Glucose 99 MG/DL Calcium Level 8.7 MG/DL Total Bilirubin 0.2 MG/DL Aspartate Amino Transf 51 U/L (AST/SGOT) Alanine Aminotransferase 41 U/L (ALT/SGPT) Alkaline Phosphatase 115 U/L Total Protein 6.8 GM/DL Albumin 3.5 GM/DL Salicylates Level LESS THAN 1.7 MG/DL Acetaminophen Level LESS THAN 2.0 MCG/ML Ethyl Alcohol Level 4 MG/DL Urine Opiates Screen NEG Urine Barbiturates Screen NEG Urine Amphetamines Screen NEG Urine Benzodiazepines Screen POS Urine Cocaine Screen NEG Urine Cannabinoids Screen NEG Ammonia 71 MCMOL/L MDM Supervised Visit with LASHONDA: No Narrative Course I discussed patient with Dr. Yip who recommends aside from given patient has normal evening medications to give a dose of Zyprexa and to check the ammonia level. Ammonia level was reviewed found to be 71 this is patient's baseline is unlikely the cause of the patient's behavioral disturbance. Kong Bailey January 22, 2017 22:20
[2017-01-22 23:04] VITALS: BP 117/66; PULSE 65; RESP 18; O2SAT 100
[2017-01-23 01:03] LABS: AMPHETAMINE, URINE NEG (NEG); BARBITURATES, URINE NEG (NEG); COCAINE, URINE NEG (NEG)
[2017-01-23 02:27] VITALS: BP 133/65; PULSE 99; RESP 18; O2SAT 95
[2017-01-23 06:27] VITALS: BP 171/82; PULSE 108; RESP 18; O2SAT 98
[2017-01-23] MEDS ORDERED: IBUPROFEN 800 MG TAB PO ONE ×2 (06:45→11:30)
[2017-01-23 11:38] VITALS: BP 151/98; PULSE 110; RESP 18; O2SAT 99
[2017-01-23 14:00] VITALS: BP 136/86; PULSE 100; RESP 16; TEMP 98.6; O2SAT 98
[2017-01-23] MEDS ORDERED: ALUMINUM/MAGNESIUM/SIMETH 30 ML CUP PO PRN (16:30)
[2017-01-23] MEDS ORDERED: ACETAMINOPHEN 325 MG TAB PO PRN (16:30)
[2017-01-23] MEDS ORDERED: ONDANSETRON ODT 4 MG TAB PO PRN (16:30)
[2017-01-23] MEDS ORDERED: MAGNESIUM HYDROXIDE SUSP 30 ML CUP PO PRN (16:30)
[2017-01-23] MEDS ORDERED: hydrOXYzine HCL 50 MG TAB PO PRN (16:30)
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
[2017-01-23] MEDS ORDERED: ACETAMINOPHEN PO PRN (17:00)
[2017-01-23] MEDS ORDERED: ISOMETHEPTENE PO PRN (17:00)
[2017-01-23] MEDS ORDERED: [UNRECOGNIZED DRUG - OTHER] PO PRN (17:00)
[2017-01-23 17:26] VITALS: BP 122/68; PULSE 68; RESP 16; TEMP 98.2; O2SAT 98
[2017-01-23 17:55] VITALS: BP 154/83; PULSE 96; RESP 20; TEMP 97.9; O2SAT 96
[2017-01-23] MEDS: LACTULOSE SYRUP 20 GM/30 ML CUP PO SCH ×2 (18:20→23:43)
[2017-01-23] MEDS: GABAPENTIN 400 MG CAP PO SCH (18:20)
[2017-01-23] MEDS: PANTOPRAZOLE SOD 40 MG DELAYED RELEASE TAB PO SCH (20:59)
[2017-01-23] MEDS: ARIPiprazole 15 MG TAB PO SCH (20:59)
[2017-01-23] MEDS: clonazePAM 1 MG TAB PO SCH (20:59)
[2017-01-23] MEDS: OLANZapine 5 MG TAB PO SCH (20:59)
[2017-01-23] MEDS ORDERED: ATORVASTATIN 10 MG TAB PO SCH (21:00)
[2017-01-23] MEDS ORDERED: TOPIRAMATE 100 MG TAB PO SCH (21:00)
[2017-01-23] MEDS ORDERED: CLONIDINE 0.2 MG PO SCH (21:00)
[2017-01-23] MEDS ORDERED: CHOLECALCIFEROL (VIT D3) 1000 UNIT TAB PO SCH (21:00)
[2017-01-23] MEDS ORDERED: hydrOXYzine HCL 50 MG TAB PO SCH (21:00)
[2017-01-23] MEDS: FLUDROCORTISONE ACETATE 0.1 MG TAB PO SCH (21:00)
[2017-01-23] MEDS: IBUPROFEN 400 MG TAB PO PRN (22:42)
[2017-01-24 05:22] VITALS: BP 139/72; PULSE 80; RESP 18; TEMP 97.4; O2SAT 99
[2017-01-24] MEDS: LACTULOSE SYRUP 20 GM/30 ML CUP PO SCH (05:23)
[2017-01-24] MEDS: IBUPROFEN 400 MG TAB PO PRN (05:24)
[2017-01-24] MEDS ORDERED: LEVOTHYROXINE SODIUM 75 MCG TAB PO SCH (06:00)
[2017-01-24] MEDS: GABAPENTIN 400 MG CAP PO SCH (08:21)
[2017-01-24] MEDS: PANTOPRAZOLE SOD 40 MG DELAYED RELEASE TAB PO SCH (08:21)
[2017-01-24] MEDS: ARIPiprazole 15 MG TAB PO SCH (08:22)
[2017-01-24] MEDS: FLUDROCORTISONE ACETATE 0.1 MG TAB PO SCH (08:22)
[2017-01-24] MEDS: clonazePAM 1 MG TAB PO SCH (08:22)
[2017-01-24] MEDS: OLANZapine 5 MG TAB PO SCH (08:22)
[2017-01-24] MEDS ORDERED: MELOXICAM 7.5 MG TAB PO SCH (09:00)
[2017-01-24] MEDS ORDERED: ESCITALOPRAM OXALATE 20 MG TAB PO SCH (09:00)
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
[2017-01-24] MEDS ORDERED: clonazePAM 1 MG TAB PO SCH (12:00)
--- NOTE | 2017-01-24 12:06 | HHI.DS ---
Psychiatry Discharge Summary Inpatient Psychiatric care?: Yes Advance Directive: No Reason Not Provided: N/A Mental Health AdvanceDirective: No Health Care Proxy: Yes Admission Admission Date January 23, 2017 at 16:31 Admission Diagnosis: (1) Adjustment disorder with disturbance of conduct ICD Code: F43.24 Brief History Patient is a 21-year-old white male comes here under [place] act by local police department history of increased aggressive behavior threatening behavior towards mother and towards himself. This is patient's second visit within 36- 48 hours. He contracted prior lifted to return home related in home less than one to 2 days and is returned here due to aggressiveness towards mother and family inability to process her cooperate with behavioral programs. Of interest patient seen by me the middle of December of this year for similar behaviors. Patients mother father and sister are his full guardians, patient has [facility]'s gastroenterologists neurologist involved with him due to his multiple medical issues combined with his behavioral issues. At the present time patient is sitting quietly in the J pod though stating he is suicidal stating he does not want to go home that he would not be able to control himself. We also called patient's mother discussed this with her she is making every effort to get appropriate resources available to help this 21-year-old boy. However at the present time I feel considering the patient's size weight impulsivity with little executive function to control it there is a high risk for possible injury to himself or to others. Thus at this time I feel he does meet Fuentes act criteria. I will do first opinion requests second opinion. I feel he does not have capacity we'll ask for healthcare surrogate and guardian advocate, will have hospitalist consult will us patient's client advocate and neurologist also consult. Hopeless to be a fairly short stay drinking coronaries with patient's mother and the behaviors treatment team of the community to help this young man Tobacco Use In Past 30 Days: No Tobacco Past 30 Days Alcohol Use: Never Hospital Course Patient was hospitalized in the psychiatric unit last night. He was discharged by me from the ER 2 days ago. Today patient says that he doesn't have any depressive symptoms, denies psychosis, denies suicidal or homicidal ideation, denies visual and auditory hallucinations. He just don't want to go back to live with his mother "because we have to many problems". After meeting with the mom by phone we agree that the patient will go back home. Results Blood Pressure 139 / 72 Vital Signs Date Time Temp Pulse Resp B/P Pulse Ox O2 Delivery O2 Flow Rate FiO2 01/24/17 05:22 97.4 80 18 139/72 99 01/23/17 11:38 Room Air Laboratory Tests Test 01/22/17 01/23/17 01/23/17 09:10 00:05 00:22 Hemoglobin 10.5 GM/DL (13.0-17.0) Hematocrit 33.5 % (39.0-51.0) Mean Corpuscular Volume 68.1 FL (80.0-100.0) Mean Corpuscular Hemoglobin 21.3 PG (27.0-34.0) Mean Corpuscular Hemoglobin 31.3 % Concent (32.0-36.0) Red Cell Distribution Width 19.9 % (11.6-17.2) Monocytes (%) (Auto) 11.1 % (0.0-8.0) Eosinophils (%) (Auto) 4.6 % (0.0-4.0) Eosinophils % 6 % (0-4) Basophils % 3 % (0-2) Ovalocytes 1+ (NORMAL) Chloride Level 110 MEQ/L (98-107) Blood Urea Nitrogen 19 MG/DL (7-18) Aspartate Amino Transf 51 U/L (15-39) (AST/SGOT) Salicylates Level LESS THAN 1.7 MG/DL (2.8-20.0) Acetaminophen Level LESS THAN 2.0 MCG/ML (10.0-30.0) Urine Benzodiazepines Screen POS (NEG) Ammonia 71 MCMOL/L (11-32) Summary of Procedures None procedures done Imaging Last Impressions Maxillofacial CT 01/22/17 0000 Signed Impressions: Service Date/Time: Sunday, January 22, 2017 11:16 - CONCLUSION: Facial soft tissue swelling without fracture. Right maxillary sinus mucosal thickening. Matt Diaz MD Head CT 01/22/17 0000 Signed Impressions: Service Date/Time: Sunday, January 22, 2017 11:16 - CONCLUSION: Normal examination. Matt Diaz MD Pending results at discharge: No Medications # of Antipsychotic meds at D/C: 1 Approp Antipsych med options 1 - Minimum of three failed multiple trials of monotherapy. 2 - Documented plan to taper to monotherapy due to previous use of multiple meds OR cross-taper in progress at D/C. 3 - Documentation of augmentation of Clozapine. 4 - Justification other than those listed in allowable values 1-3, document here : Discharge Discharge Date: January 24, 2017 Discharge Diagnosis: (1) Adjustment disorder with disturbance of conduct ICD Code: F43.24 Mental Status Exam at Disch man, appropriate for stated age, good hygiene, [facility], cooperative, irritable. Speech is reticent, mood is okay, affect is flat. Thought processes concrete, logical, thought content is devoid of SI, HI, visual and auditory hallucinations. No paranoia, no delusions observed. Judgment, impulse control, insight is fair. Memory is good. Pt Condition on Discharge: Stable Discharge Disposition: Discharge Home Discharge Instructions Diet Instructions: As Tolerated, No Restrictions Activities you can perform: Regular-No Restrictions Scheduled Appointment: Discharge Time > 30 minutes Discharge/Advance Care Plan Health Problems: (1) Autism spectrum disorder (2) Impulse control disorder Goals to promote your health * To prevent worsening of your condition and complications * To maintain your health at the optimal level Directions to meet your goals Take your medications as prescribed Follow your dietary instruction Follow activity as directed Keep your appointments as scheduled Take your immunizations and boosters as scheduled If your symptoms worsen call your PCP, if no PCP go to Urgent Care Center or Emergency Room For 04/04 questions related to your inpatient stay or results of tests pending at discharge, please contact Dr. Luis Cruz at Smoking is Dangerous to Your Health. Avoid second hand smoking Luis Cruz MD January 24, 2017 12:06
--- NOTE | 2017-01-24 12:33 | PD.CONS ---
HPI History of Present Illness This is a 21 year old male with a history of autism, dysautonomia, MEN1 IgA deficiency, asthma, hypothyroidism, juvenile rheumatoid arthritis, petit mal seizure, who is currently in the medical psychiatric unit under a backer act because he was combative with his parents and ran away from home. GI has been consulted for elevated ammonia level. According to the records, he has had an ongoing problem with this, but that they have had a hard time controlling this. He reports that he takes Lactulose four times a day, but that he has significant diarrhea and bouts of incontinence with this. He is somewhat upset because he says the nurse stated that he was incontinent "to gain attention." He states that with his medicine, he cannot control his bowels at times. He cannot recall why he is in the hospital, but is oriented to self and place. He states that he started having abdominal pain this am around shift change. This is a constant pain in his mid abdominal area without radiation, but he is unable to describe this. He does have some associated nausea without vomiting and decreased appetite. He does feel that his nausea and pain are aggravated by any po intake, but states this just started earlier today. He has been having diarrhea, but states this is related to his medicine. He also reports that he has had intermittent bright red blood per rectum. He cannot recall when this last happened but states it is fairly regular. He also reports that he recently had a colonoscopy with Dr. Turk for this, but does not recall what was found and states he cannot see her any longer because of his age. He is not sure when this was last done, but states it was not very long ago. He has a #16 Yaw and states that he has had this for awhile because sometimes he does not eat. He says he is not currently using this. PFSH Past Medical History Autism Bipolar disorder Suspected muscular dystrophy versus mitochondrial complex 1 versus spastic paraplegia Dysautonomia with syncopal events MEN 1 IgA deficiency Petite mal seizures Hypothyroidism Asthma Juvenile rheumatoid arthritis Poor po intake hx Hyperammonemia Past Surgical History Tonsillectomy and adenoidectomy G tube placement x2 Foreign body removal from knee Rhinoplasty Tympanostomy tube Colonoscopy EGD Coded Allergies: Ceftin (Verified Allergy, Severe, RASH, 01/22/17) Per Mom. Latex (Verified Allergy, Severe, 01/22/17) TONGUE ITCHES Per Mom. Trileptal (Verified Allergy, Severe, NEURO TOXIC, 01/22/17) Per Mom. Medications Allergies Coded Allergies Type Severity Reaction Last Updated Verified Ceftin Allergy Severe RASH 01/22/17 Yes Latex Allergy Severe 01/22/17 Yes Trileptal Allergy Severe NEURO TOXIC 01/22/17 Yes Active Scripts Medications Dose Route/Sig Days Date Category Dose Instructions Olanzapine 5 Mg Tab 5 Mg PO BID 01/20/17 Reported Kapvay ER 12 HR (Clonidine HCl) 0.1 Mg Tab 0.2 Mg PO BID 01/20/17 Reported Topamax (Topiramate) 100 Mg Tab 300 Mg PO BID 12/23/16 Rx Synthroid (Levothyroxine Sodium) 75 Mcg Tab 75 Mcg PO DAILY@0600 12/23/16 Rx Hydroxyzine HCl 50 Mg Tab 100 Mg PO HS 12/23/16 Rx Neurontin (Gabapentin) 400 Mg Cap 800 Mg PO TID 12/23/16 Rx Escitalopram (Escitalopram Oxalate) 20 Mg Tab 20 Mg PO DAILY 12/23/16 Rx Klonopin (Clonazepam) 1 Mg Tab 1 Mg PO BID 12/23/16 Rx Lipitor (Atorvastatin Calcium) 10 Mg Tab 10 Mg PO HS 12/23/16 Rx Aripiprazole 15 Mg Tab 15 Mg PO BID 12/23/16 Rx Lactulose Liq (Lactulose) 10 Gm/15 Ml Soln 30 Ml PO Q6H 10 10/19/16 Rx Vitamin D3 (Cholecalciferol) 2,000 Unit Tab 4,000 Units PO HS 10/19/16 Reported Zyrtec Allergy (Cetirizine HCl) 10 Mg Cap 10 Mg PO HS 09/23/16 Reported Nodolor 325-65-100 mg (Isometheptene-Dichloralphenazo) 1 Cap Cap 2 Cap PO AT ONSET OF HEADACHE PRN 09/23/16 Reported Fludrocortisone (Fludrocortisone Acetate) 0.1 Mg Tab 0.1 Mg PO BID 08/24/16 Reported Zofran (Ondansetron HCl) 4 Mg Tab 4 Mg PO Q6HR PRN 08/23/16 Reported Omeprazole 40 Mg Cap 40 Mg PO BID 08/23/16 Reported Mobic (Meloxicam) 7.5 Mg Tab 7.5 Mg PO DAILY 08/23/16 Reported Lorazepam 2 Mg Tab 2 Mg PO Q6H PRN 08/23/16 Reported Gaviscon Extra Strength (Aluminum Hydroxide-Mag Carb) 160-105 mg Chew 2 Tab CHEW HS 08/23/16 Reported Maximum 16 tabs/24 hrs. Clonazepam 2 Mg Tab 2 Mg PO NOON 08/23/16 Reported Family History Multiple family members with colon cancers and breast cancers. Also has a grandmother who had adrenal carcinoma. Social History Denies any tobacco, alcohol, or illicit drug use Review of Systems Constitutional: COMPLAINS OF: Fatigue, Change in appetite Respiratory: DENIES: Cough Cardiovascular: DENIES: Chest pain Gastrointestinal: COMPLAINS OF: Abdominal pain, Bloody stools (bright red blood per rectum), Diarrhea, Nausea, DENIES: Black stools, Vomiting, Difficulty Swallowing, Swelling of Abdomen, Heartburn, Hematemesis Musculoskeletal: COMPLAINS OF: Joint pain Integumentary: DENIES: Abnormal pigmentation Hematologic/lymphatic: DENIES: Bruising Neurologic: DENIES: Headache Psychiatric: COMPLAINS OF: Mood changes, Agitation, DENIES: Confusion GI Exam Vitals I&O Vital Signs Date Time Temp Pulse Resp B/P Pulse Ox O2 Delivery O2 Flow Rate FiO2 01/24/17 05:22 97.4 80 18 139/72 99 01/23/17 23:42 18 01/23/17 17:55 97.9 96 20 154/83 96 01/23/17 17:26 98.2 68 16 122/68 98 01/23/17 14:00 98.6 100 16 136/86 98 Imaging Last Impressions Maxillofacial CT 01/22/17 0000 Signed Impressions: Service Date/Time: Sunday, January 22, 2017 11:16 - CONCLUSION: Facial soft tissue swelling without fracture. Right maxillary sinus mucosal thickening. Matt Diaz MD Head CT 01/22/17 0000 Signed Impressions: Service Date/Time: Sunday, January 22, 2017 11:16 - CONCLUSION: Normal examination. Matt Diaz MD Physical Examination HEENT: Normocephalic; atraumatic; no jaundice. CHEST: CTA CARDIAC: RRR ABDOMEN: Soft, nondistended, mild mid abdominal tenderness; no hepatosplenomegaly; bowel sounds are present in all four quadrants. EXTREMITIES: No clubbing, cyanosis, or edema. SKIN: Normal; no rash; no jaundice. FELT STRIP FINISHER: No focal deficits; alert and oriented times three. Assessment and Plan Plan ASSESSMENT: - Hyperammonemia. According to the records, he has had an ongoing issue with this. He has no hx of liver disease and this is most likely related to his medications. He is on Lactulose QID at home, but c/o significant diarrhea and incontinence with this. He is upset because he feels that the nurses think he is doing this on purpose and states he cannot control the diarrhea with his medications. His ammonia is 71. We will hold lactulose for today for diarrhea and resume tomorrow at a lower dose. We will also start him on Xifaxan 550mg po BID. - Abdominal pain, nausea. Sudden onset this am. Constant discomfort mid abdominal area without radiation with associated nausea without vomiting. No imaging. T. Bili 0.2, AST 51, ALT 41, ALk Phosph 115. Will get CT scan abdomen and pelvis. - BRBPR. States he has a long history of BRBPR, large amount mixed within bowel movements, but is not currently having right now, but states it occurs fairly regular. States he recently had colonoscopy with Dr. Turk for this, but is unable to follow up with her because of his age. - Hx poor po intake. Has #[address], states he is not currently using. States this is not currently an issue - Agitation, BA per psych - Hx autism, dysautonomia, MEN1 IgA deficiency, seziure d/o, juvenile ra, per primary/psych/neuro PLAN: - CT Scan abdomen and pelvis with iv/po contrast - Obtain records from Dr. Turk office (last egd/colonoscopy) - Hold lactulose today - Resume tomorrow with TID dosing - Add Xifaxan 550mg po BID - Monitor labs - Supportive care - Further recommendations to follow based on results of above - Pt seen and examined by Dr. Ram and myself and this note is written on his behalf Jennifer Dior January 24, 2017 12:33
[2017-01-24] MEDS ORDERED: DIATRIZOATE MEGLUM/DIATRIZOATE SOD 9 ML CUP PO ONE (14:15)
[2017-01-24] MEDS ORDERED: RIFAXIMIN 550 MG TAB PO SCH (21:00)
[2017-01-25] MEDS ORDERED: LACTULOSE SYRUP 20 GM/30 ML CUP PO SCH (09:00)
== END 2017-01-24 11:20 | disposition home or self-care (01) | DRG 884 ==
LOC: NEPE 08:47 → NEDA 01-23 16:31 → H4EA 01-23 17:37
PROVIDERS: ADMIT Psychiatry & Neurology Psychiatry; ATTEND Psychiatry & Neurology Psychiatry
DX: F84.0 Autistic disorder (principal); E31.21 Multiple endocrine neoplasia [MEN] type I; K62.5 Hemorrhage of anus and rectum; F63.9 Impulse disorder, unspecified; F43.24 Adjustment disorder with disturbance of conduct; E03.9 Hypothyroidism, unspecified; J45.909 Unspecified asthma, uncomplicated; M08.00 Unspecified juvenile rheumatoid arthritis of unspecified site; G40.409 Other generalized epilepsy and epileptic syndromes, not intractable, without status epilepticus; R79.89 Other specified abnormal findings of blood chemistry; R10.9 Unspecified abdominal pain; R11.0 Nausea; F25.9 Schizoaffective disorder, unspecified; F31.9 Bipolar disorder, unspecified; R45.850 Homicidal ideations
CPT/HCPCS: 70450; 70486; 80053; 80307; 82140; 85007; 85025; 85027; 96372; J1200; J1630; J1642; J2060

== ENCOUNTER 2017-01-31 18:02 | Emergency (ER) | payer BC, OTHER ==
[~2017-01-31] VITALS: Ht 162.6 cm; Wt 110.0 kg
[2017-01-31 18:13] VITALS: BP 150/100; PULSE 110; RESP 20; TEMP 98.5; O2SAT 100
[2017-01-31] MEDS ORDERED: HYDR50TA94 PO (18:49)
[2017-01-31 19:12] LABS: AUTOMATED NEUTROPHIL # 3.9 TH/MM3 (1.8-7.7); BASOPHIL # 0.1 TH/MM3 (0-0.2); BASOPHIL % 0.6 % (0.0-2.0); EOSINOPHIL # 0.5 TH/MM3 (0-0.4); EOSINOPHIL % 6.4 % (0.0-4.0); HEMATOCRIT 35.4 % (39.0-51.0); HEMO FLAGS DIFF FINAL; LYMPH % 35.3 % (9.0-44.0); LYMPHOCYTE # 2.8 TH/MM3 (1.0-4.8); MEAN CELL VOLUME 69.1 FL (80.0-100.0); MEAN CORPUSCULAR HGB CONC 30.4 % (32.0-36.0); NEUT % 48.7 % (16.0-70.0); PLATELET COUNT 289 TH/MM3 (150-450); RED BLOOD COUNT 5.13 MIL/MM3 (4.50-5.90); RED CELL DISTRIBUTION WIDTH 19.8 % (11.6-17.2)
--- NOTE | 2017-01-31 19:15 | PD ---
HPI Chief Complaint: Psychiatric Symptoms Time Seen by Provider: 19:11 Travel History International Travel<30 days: No Contact w/Intl Traveler<30days: No Traveled to known affect area: No History of Present Illness HPI 21-year-old male to presents to the ED for evaluation of psychiatric illness. Patient is a chronic history of autism and has been here multiple times for the same. Patient apparently was Fuentes acted because he was having behavioral issues. Patient apparently told his mother that he was suicidal and wanted to shoot himself. Patient saw police and put himself on the floor and told him that he was suicidal so he was Fuentes acted. He is well known to staff. Patient has been here multiple times for behavioral issues and Fuentes acts. He has no medical complaints at this time. He denies any pain. He denies any other issues. He states that he is suicidal. No homicidal ideation. He does not know his psychiatrist. Per patient he does take medications and he states that he is compliant. Allergies to Ceftin, Lasix, Trileptal. Patient was just seen last week for similar. Patient is somewhat of a poor historian secondary to his mental illness. PFSH Past Medical History ADHD: No Arthritis: Yes (JRA) Asthma: Yes Autoimmune Disease: Yes (decreased IGA, ?JRA, MEN1) Blood Disorders: No Bipolar Disorder: Yes Weight (Kg): 3 Anxiety: No Depression: No Cardiovascular Problems: Yes (DISAUTONOMIA) Chemotherapy: No Chest Pain: No Congestive Heart Failure: No COPD: No Cerebrovascular Accident: No Developmental Delay: No Diminished Hearing: No Endocrine: Yes Gastrointestinal Disorders: Yes (WEIGHT LOSS, INTERMITTENT REFLUX) GERD: Yes Genitourinary: No Hepatitis: No Hiatal Hernia: No Hypertension: No Immune Disorder: Yes (JRA) Implanted Vascular Access Dvce: Yes (PEG TUBE/INFUSA PORT) Medical other: Yes (MITROCHONDRIAL COMPLEX 1, , SPASTIC PARAPALEGIC, DYSAUTOMONY, MEN 1) Musculoskeletal: Yes (MITOCHONDRIAL COMPLEX 1) Neurologic: Yes (AUTISTIC,SEIZURES) Psychiatric: Yes Reproductive: No Respiratory: Yes (IGA DEFICIENCY) Immunizations Current: Yes Migraines: Yes (DAILY ) Radiation Therapy: No Renal Failure: No Seizures: Yes ( ) Sickle Cell Disease: No Sleep Apnea: No Thyroid Disease: Yes Ulcer: No Tetanus Vaccination: > 5 Years Influenza Vaccination: Yes Past Surgical History Abdominal Surgery: Yes (G TUBE X2) AICD: No Body Medical Devices: peg tube Cardiac Surgery: No Ear Surgery: No Endocrine Surgery: No Eye Surgery: No Genitourinary Surgery: No Gynecologic Surgery: No Insulin Pump: No Joint Replacement: No Neurologic Surgery: No Oral Surgery: No Pacemaker: No Thoracic Surgery: No Tonsillectomy: Yes Tympanostomy Tube: Yes (X2) Other Surgery: Yes (RHINOPLASTY) Social History Alcohol Use: No Tobacco Use: No Substance Use: No Allergies-Medications (Allergen,Severity, Reaction): Coded Allergies: Ceftin (Verified Allergy, Severe, RASH, 01/31/17) Per Mom. Latex (Verified Allergy, Severe, 01/31/17) TONGUE ITCHES Per Mom. Trileptal (Verified Allergy, Severe, NEURO TOXIC, 01/31/17) Per Mom. Reported Meds & Prescriptions Reported Meds & Active Scripts Active Topamax (Topiramate) 100 Mg Tab 300 Mg PO BID Synthroid (Levothyroxine Sodium) 75 Mcg Tab 75 Mcg PO DAILY@0600 Neurontin (Gabapentin) 400 Mg Cap 800 Mg PO TID Escitalopram (Escitalopram Oxalate) 20 Mg Tab 20 Mg PO DAILY Klonopin (Clonazepam) 1 Mg Tab 1 Mg PO BID Lipitor (Atorvastatin Calcium) 10 Mg Tab 10 Mg PO HS Aripiprazole 15 Mg Tab 15 Mg PO BID Lactulose Liq (Lactulose) 10 Gm/15 Ml Soln 30 Ml PO Q6H 10 Days Reported Hydroxyzine HCl 50 Mg Tab 50 Mg PO HS PRN May repeat x 1 dose in 1hr if 1st dose ineffective Olanzapine 5 Mg Tab 5 Mg PO BID Kapvay ER 12 HR (Clonidine HCl) 0.1 Mg Tab 0.2 Mg PO BID Vitamin D3 (Cholecalciferol) 2,000 Unit Tab 4,000 Units PO HS Zyrtec Allergy (Cetirizine HCl) 10 Mg Cap 10 Mg PO HS Nodolor 325-65-100 mg (Isometheptene-Dichloralphenazo) 1 Cap Cap 2 Cap PO AT ONSET OF HEADACHE PRN Fludrocortisone (Fludrocortisone Acetate) 0.1 Mg Tab 0.1 Mg PO BID Zofran (Ondansetron HCl) 4 Mg Tab 4 Mg PO Q6HR PRN Omeprazole 40 Mg Cap 40 Mg PO BID Mobic (Meloxicam) 7.5 Mg Tab 7.5 Mg PO DAILY Lorazepam 2 Mg Tab 2 Mg PO Q6H PRN Gaviscon Extra Strength (Aluminum Hydroxide-Mag Carb) 160-105 mg Chew 2 Tab CHEW HS Maximum 16 tabs/24 hrs. Clonazepam 2 Mg Tab 2 Mg PO NOON Review of Systems ROS Limitations: Poor Historian Except as stated in HPI: all other systems reviewed are Neg Physical Exam Exam Limitations: Poor Historian Narrative GENERAL: SKIN: Warm and dry. HEAD: Atraumatic. Normocephalic. EYES: Pupils equal and round. No scleral icterus. No injection or drainage. ENT: No nasal bleeding or discharge. Mucous membranes pink and moist. Tongue is midline. No uvula deviation. NECK: Trachea midline. No JVD. CARDIOVASCULAR: Regular rate and rhythm. No murmurs, S3, S4. RESPIRATORY: No accessory muscle use. Clear to auscultation. Breath sounds equal bilaterally. GASTROINTESTINAL: Abdomen soft, non-tender, nondistended. Hepatic and splenic margins not palpable. MUSCULOSKELETAL: Extremities without clubbing, cyanosis, or edema. No obvious deformities. Full range of motion of the upper and lower extremities bilaterally. 2+ pulses bilaterally. NEUROLOGICAL: Awake and alert. No obvious cranial nerve deficits. Motor grossly within normal limits. Five out of 5 muscle strength in the arms and legs. Normal speech. PSYCHIATRIC: Appropriate mood and affect; insight and judgment normal. Data Data Last Documented VS Vital Signs Date Time Temp Pulse Resp B/P Pulse Ox O2 Delivery O2 Flow Rate FiO2 01/31/17 18:13 98.5 110 20 150/100 100 Orders Complete Blood Count With Diff (01/31/17 18:23) Comprehensive Metabolic Panel (01/31/17 18:23) Psych Screen (01/31/17 18:23) Drug Screen, Random Urine (01/31/17 18:23) Ammonia (01/31/17 18:25) Olanzapine Inj (Zyprexa Inj) (01/31/17 19:45) Lorazepam Inj (Ativan Inj) (01/31/17 19:45) Diphenhydramine Inj (Benadryl Inj) (01/31/17 19:45) Restraints Violent (01/31/17 19:33) Labs Laboratory Tests Test 01/31/17 18:45 White Blood Count 8.0 TH/MM3 Red Blood Count 5.13 MIL/MM3 Hemoglobin 10.8 GM/DL Hematocrit 35.4 % Mean Corpuscular Volume 69.1 FL Mean Corpuscular Hemoglobin 21.0 PG Mean Corpuscular Hemoglobin 30.4 % Concent Red Cell Distribution Width 19.8 % Platelet Count 289 TH/MM3 Mean Platelet Volume 7.0 FL Neutrophils (%) (Auto) 48.7 % Lymphocytes (%) (Auto) 35.3 % Monocytes (%) (Auto) 9.0 % Eosinophils (%) (Auto) 6.4 % Basophils (%) (Auto) 0.6 % Neutrophils # (Auto) 3.9 TH/MM3 Lymphocytes # (Auto) 2.8 TH/MM3 Monocytes # (Auto) 0.7 TH/MM3 Eosinophils # (Auto) 0.5 TH/MM3 Basophils # (Auto) 0.1 TH/MM3 CBC Comment DIFF FINAL Differential Comment Sodium Level 143 MEQ/L Potassium Level 3.6 MEQ/L Chloride Level 111 MEQ/L Carbon Dioxide Level 22.8 MEQ/L Anion Gap 9 MEQ/L Blood Urea Nitrogen 15 MG/DL Creatinine 0.90 MG/DL Estimat Glomerular Filtration 109 ML/MIN Rate Random Glucose 102 MG/DL Calcium Level 8.5 MG/DL Total Bilirubin 0.2 MG/DL Aspartate Amino Transf 22 U/L (AST/SGOT) Alanine Aminotransferase 35 U/L (ALT/SGPT) Alkaline Phosphatase 115 U/L Ammonia 52 MCMOL/L Total Protein 6.7 GM/DL Albumin 3.7 GM/DL MDM Medical Decision Making Medical Screen Exam Complete: Yes Emergency Medical Condition: Yes Medical Record Reviewed: Yes Interpretation(s) CBC & BMP Diagram 01/31/17 18:45 Differential Diagnosis Depression versus suicidal ideation versus anxiety versus adjustment disorder versus mood disorder versus bipolar disorder versus schizophrenia versus paranoid disorder versus psychosis versus substance abuse versus alcohol abuse versus alcohol induced psychosis versus homicidality addition versus cutting versus personality disorder Narrative Course 21-year-old male that presents to the ED for evaluation of psych. Patient was properly examined and was found to have signs and symptoms consistent with psychiatric illness. Patient has a history of behavioral issues. His been here multiple times for similar. He denies any medical issues to me at this time. He does have some chronic medical issues for which she takes medications. Labs will be drawn. Patient will be medically clear. Okay to be seen by psych. Mental health screening was discussed with the patient. Diagnosis Primary Impression: Adjustment disorder with disturbance of conduct Additional Impressions: Autism spectrum disorder Behavior problem, adult Tye Benjamin January 31, 2017 19:15
[2017-01-31 19:38] LABS: ALKALINE PHOSPHATASE 115 U/L (45-117); ALT (GPT) 35 U/L (9-52); ANION GAP 9 MEQ/L (5-15); AST (GOT) 22 U/L (15-39); BICARBONATE 22.8 MEQ/L (21.0-32.0); BLOOD UREA NITROGEN 15 MG/DL (7-18); CHLORIDE 111 MEQ/L (98-107); GLOMERULAR FILTRATION RATE 109 ML/MIN (>89); POTASSIUM 3.6 MEQ/L (3.5-5.1); SODIUM (NA) 143 MEQ/L (136-145); TOTAL BILIRUBIN ADULT 0.2 MG/DL (0.2-1.0)
[2017-01-31] MEDS ORDERED: LORazepam 2 MG/ML VIAL IM ONE (19:45)
[2017-01-31] MEDS ORDERED: OLANZapine IM 10 MG VIAL IM ONE (19:45)
[2017-01-31] MEDS ORDERED: diphenhydrAMINE HCL 50 MG/ML VIAL IM ONE (19:45)
[2017-01-31] MEDS ORDERED: SODIUM CHLORIDE 0.9% FLUSH 10 ML FLUSH IVF PRN (20:30)
[2017-01-31 21:05] VITALS: BP 159/88; PULSE 85; RESP 18; O2SAT 99
[2017-01-31 22:23] VITALS: RESP 19
[2017-02-01 02:12] VITALS: BP 160/90; PULSE 89; RESP 18; O2SAT 7; O2SAT 97
[2017-02-01 06:29] VITALS: BP 157/86; PULSE 101; RESP 19; O2SAT 98
[2017-02-01] MEDS ORDERED: ONDANSETRON HCL 4 MG/2 ML VIAL ONE (08:38)
[2017-02-01] MEDS ORDERED: ONDANSETRON ODT 4 MG TAB PO ONE (08:45)
[2017-02-01] MEDS ORDERED: ZIPRASIDONE MESYLATE 20 MG VIAL IM ONE (11:15)
[2017-02-01] MEDS ORDERED: diphenhydrAMINE HCL 50 MG/ML VIAL IM ONE (11:15)
--- NOTE | 2017-02-01 14:07 | PD.CONS ---
Provisional Diagnosis Admission Date [place] Adjustment disorder with disturbance of conduct History of Present Illness Service Psychiatry Consult Requested By Primary Care Physician Unknown HPI The patient is a 21 years old man, domicile with his mother and poor [place], well known by this service, psychiatric history of autism spectrum disorder, schizoaffective disorder, aggressive behavior, multiple psychiatric hospitalizations, he has active outpatient care with Dr. Christopher, who was Patient apparently was Fuentes acted because he was having behavioral issues. Patient apparently told his mother that he was suicidal and wanted to shoot himself. Patient saw police and put himself on the floor and told him that he was suicidal so he was Fuentes acted. Patient was seen for psychiatric evaluation in the [facility], he is calm, cooperative in the ER. Patient reports that he wants to be admitted and he does not want to live with his mother. He reports good mood, he denies anxiety, he denies perceptual disturbances, he denies suicidal or homicidal ideation, and he denies visual and auditory hallucinations. He says that yesterday he just had an argument with his mother , he thought that he would be safer in the hospital. He denies the use of drugs and alcohol. Review of Systems Constitutional: DENIES: Diaphoretic episodes, Fatigue, Fever, Weight gain, Weight loss, Chills, Dizziness, Change in appetite, Night Sweats Endocrine: DENIES: Heat/cold intolerance, Polydipsia, Polyuria, Polyphagia Eyes: DENIES: Blurred vision, Diplopia, Eye inflammation, Eye pain, Vision loss , Photosensitivity, Double Vision Ears, nose, mouth, throat: DENIES: Tinnitus, Hearing loss, Vertigo, Nasal discharge, Oral lesions, Throat pain, Hoarseness, Ear Pain, Running Nose, Epistaxis, Sinus Pain, Toothache, Odynophagia Respiratory: DENIES: Apneas, Cough, Snoring, Wheezing, Hemoptysis, Sputum production, Shortness of breath Cardiovascular: DENIES: Chest pain, Palpitations, Syncope, Dyspnea on Exertion , PND, Lower Extremity Edema, Orthopnea, Claudication Gastrointestinal: DENIES: Abdominal pain, Black stools, Bloody stools, Constipation, Diarrhea, Nausea, Vomiting, Difficulty Swallowing, Anorexia Genitourinary: DENIES: Sexual dysfunction, Urinary frequency, Urinary incontinence, Urgency, Hematuria, Dysuria, Nocturia, Penile Discharge, Testicular Pain, Testicular Swelling Musculoskeletal: DENIES: Joint pain, Muscle aches, Stiffness, Joint Swelling, Back pain, Neck pain Integumentary: DENIES: Abnormal pigmentation, Nail changes, Pruritus, Rash Hematologic/lymphatic: DENIES: Bruising, Lymphadenopathy Immunologic/allergic: DENIES: Eczema, Urticaria Neurologic: DENIES: Abnormal gait, Headache, Localized weakness, Paresthesias, Seizures, Speech Problems, Tremor, Poor Balance Past Family Social History Coded Allergies: Ceftin (Verified Allergy, Severe, RASH, 01/31/17) Per Mom. Latex (Verified Allergy, Severe, 01/31/17) TONGUE ITCHES Per Mom. Trileptal (Verified Allergy, Severe, NEURO TOXIC, 01/31/17) Per Mom. Active Scripts Topiramate (Topamax)100 Mg Emp245 Mg PO BID #60 TAB Prov:Luis Cruz MD 12/23/16 Levothyroxine (Synthroid)75 Mcg Tab75 Mcg PO DAILY@0600 #30 TAB Prov:Luis Cruz MD 12/23/16 Gabapentin (Neurontin)400 Mg Dsl145 Mg PO TID #90 CAP Prov:Luis Cruz MD 12/23/16 Escitalopram 20 Mg Tab20 Mg PO DAILY #30 TAB Prov:Luis Cruz MD 12/23/16 Clonazepam (Klonopin)1 Mg Tab1 Mg PO BID #30 TAB Prov:Luis Cruz MD 12/23/16 Atorvastatin (Lipitor)10 Mg Tab10 Mg PO HS #30 TAB Prov:Luis Cruz MD 12/23/16 Aripiprazole 15 Mg Tab15 Mg PO BID #30 TAB Prov:Luis Cruz MD 12/23/16 Lactulose Liq 10 Gm/15 Ml Soln30 Ml PO Q6H 10 Days Ref 0 Prov:Alka Viera MD 10/19/16 Reported Medications Hydroxyzine HCl 50 Mg Tab50 Mg PO HS PRN (INSOMNIA) Ref 0 January repeat x 1 dose in 1hr if 1st dose ineffective 01/31/17 Olanzapine 5 Mg Tab5 Mg PO BID #60 TAB Ref 0 01/20/17 Clonidine ER 12 HR (Kapvay ER 12 HR)0.1 Mg Tab0.2 Mg PO BID #30 TAB Ref 0 01/20/17 Cholecalciferol (Vitamin D3)2,000 Unit Tab4,000 Units PO HS #1 BOTTLE Ref 0 10/19/16 Cetirizine (Zyrtec Allergy)10 Mg Cap10 Mg PO HS Ref 0 09/23/16 Isometheptene-Dichloralphenazo (Nodolor 325-65-100 mg)1 Cap Cap2 Cap PO AT ONSET OF HEADACHE PRN (HEADACHE) 09/23/16 Fludrocortisone 0.1 Mg Tab0.1 Mg PO BID #30 TAB Ref 0 08/24/16 Ondansetron (Zofran)4 Mg Tab4 Mg PO Q6HR PRN (NAUSEA OR VOMITING) Ref 0 08/23/16 Omeprazole 40 Mg Cap40 Mg PO BID #30 CAP Ref 0 08/23/16 Meloxicam (Mobic)7.5 Mg Tab7.5 Mg PO DAILY Ref 0 08/23/16 Lorazepam 2 Mg Tab2 Mg PO Q6H PRN (ANXIETY) Ref 0 08/23/16 Aluminum Hydroxide-Mag Carb (Gaviscon Extra Strength)160-105 mg Chew2 Tab CHEW HS Maximum 16 tabs/24 hrs. 08/23/16 Clonazepam 2 Mg Tab2 Mg PO NOON #60 TAB Ref 0 08/23/16 Family History He denies family psychiatric his Social History man, who lives with his mother and poor [place], unemployed, single, supported by mother Physical Exam Vital Signs Vital Signs Date Time Temp Pulse Resp B/P Pulse Ox O2 Delivery O2 Flow Rate FiO2 02/01/17 06:29 101 19 157/86 98 Room Air 01/31/17 18:13 98.5 Mental Status Examination Appearance man, [facility], he is calm, cooperative Speech: Unremarkable Orientation: x3 Memory: Unremarkable Thought Process: Logical Thought Content: Unremarkable Hallucination Type: None Suicidal Ideation: No Previous Suicide Attempts: No Homicidal Ideation: No Previous Homicide Attempts: No Insight: Good Affect: Good Mood: Appropriate Motor Activity: Normal gait Assessment & Plan Problem List: (1) Adjustment disorder with disturbance of conduct Assessment & Plan: At the moment of this evaluation the patient does not present any evidence of acute depression, anxiety, johnny or psychosis. Patient does not present any aggressiveness or agitation. He denies suicidal or homicidal ideation, he denies visual and auditory hallucinations. Patient has an extensive history of manipulative behavior and bringing himself to the hospital in order to run away of his mother. Recent suicidal statement to the police was most probably part of his behavioral problem. Patient does not meet criteria for psychiatric admission at this moment. Extensive psychoeducation, motivation psycho education provided. ICD Code: F43.24 Assessment & Plan Estimated LOS: Luis Cruz MD February 01, 2017 14:07
[2017-02-02] MEDS ORDERED: LORazepam 2 MG/ML VIAL ONE (03:42)
[2017-02-02] MEDS ORDERED: ZIPRASIDONE MESYLATE 20 MG VIAL IM ONE (13:26)
[2017-02-02] MEDS ORDERED: diphenhydrAMINE HCL 50 MG/ML VIAL ONE (13:26)
--- NOTE | 2017-02-05 00:47 | PD ---
Data Data Orders Complete Blood Count With Diff (01/31/17 18:23) Comprehensive Metabolic Panel (01/31/17 18:23) Psych Screen (01/31/17 18:23) Ammonia (01/31/17 18:25) Olanzapine Inj (Zyprexa Inj) (01/31/17 19:45) Lorazepam Inj (Ativan Inj) (01/31/17 19:45) Diphenhydramine Inj (Benadryl Inj) (01/31/17 19:45) Restraints Violent (01/31/17 19:33) Sodium Chloride 0.9% Flush (Ns Flush) (01/31/17 20:30) Heparin Central Flush (Heparin Central F (01/31/17 20:30) Diet Regular Basic (02/01/17 Breakfast) Ondansetron Inj (Zofran Inj) (02/01/17 08:38) Ondansetron Odt (Zofran Odt) (02/01/17 08:45) Ziprasidone Inj (Geodon Inj) (02/01/17 11:15) Diphenhydramine Inj (Benadryl Inj) (02/01/17 11:15) Lorazepam Inj (Ativan Inj) (02/02/17 03:42) Ziprasidone Inj (Geodon Inj) (02/02/17 13:26) Diphenhydramine Inj (Benadryl Inj) (02/02/17 13:26) MDM Supervised Visit with LASHONDA: Yes Narrative Course I, Dr. Chavez, have reviewed the advance practice practitioner's documentation and am in agreement, met with the patient face to face, made the diagnosis, and the medical decision making was done by me. *My assessment and Findings: Patient 21-year-old male with a history of autism presents emergency department for evaluation under Fuentes act. Patient began to wander and tried to leave after the ambulance bay. He had to be stopped by me as well as several nurses placed in a bed. Patient continuing to try and wander head indications for 4- point restraints. He was placed in restraints cautiously and she mainly and ultimately sedated chemically as well. Continuing medical workup by Tye Benjamin anticipate medical stability for psychiatric evaluation and disposition. Patient was examined briefly by me and had no bruising or lacerations on his person. Diagnosis Primary Impression: Adjustment disorder with disturbance of conduct Additional Impressions: Behavior problem, adult Autism spectrum disorder Referrals: Loulou Nielson MD (Family) Patient Instructions: General Instructions, Autism Spectrum Disorder (ED) Departure Forms: Tests/Procedures Disposition: 01 DISCHARGE HOME Mook Chavez MD February 05, 2017 00:47
[2017-03-16] MEDS ORDERED: QUET1TAB10 PO (16:06)
[2017-03-16] MEDS ORDERED: CLON1 PO (16:06)
[2017-03-16] MEDS ORDERED: LORA-475 PO (16:10)
[2017-03-16] MEDS ORDERED: [UNRECOGNIZED DRUG - CODE] PO ×2 (16:10→16:13)
== END 2017-02-01 10:59 | disposition home or self-care (01) ==
LOC: NEPE 18:02 → NEPJ 02-01 10:59
DX: F43.24 Adjustment disorder with disturbance of conduct (principal); F84.0 Autistic disorder; F31.9 Bipolar disorder, unspecified; R56.9 Unspecified convulsions
CPT/HCPCS: 80053; 82140; 85025; 96372; 99285; J1200; J1642; J2060; J3486; J2405

== ENCOUNTER 2017-02-02 01:58 | Emergency (ER) | payer BC, OTHER ==
[2017-02-02 02:06] VITALS: BP 147/83; PULSE 113; RESP 18; TEMP 99.2; O2SAT 97
--- NOTE | 2017-02-02 02:09 | PD ---
HPI Chief Complaint: Psychiatric Symptoms Time Seen by Provider: 02:06 Travel History International Travel<30 days: No Contact w/Intl Traveler<30days: No Traveled to known affect area: No History of Present Illness HPI 21-year-old white male presents to emergency department under a Fuentes act by PD. This is a patient well-known to the ER staff and myself for prior ER visits due to autism and mental health issues. He was just discharged from the hospital yesterday. He has had behavioral problems at home. He left his home this evening and contacted police letting them know that he was having thoughts of hurting himself or hurting others. The patient has no current plan but merely states that he would like to be evaluated. He feels safe here at the hospital. He has no medical complaints. PFSH Past Medical History ADHD: No Arthritis: Yes (JRA) Asthma: Yes Autoimmune Disease: Yes (decreased IGA, ?JRA, MEN1) Blood Disorders: No Bipolar Disorder: Yes Anxiety: No Depression: No Cardiovascular Problems: Yes (DISAUTONOMIA) Chemotherapy: No Chest Pain: No Congestive Heart Failure: No COPD: No Cerebrovascular Accident: No Developmental Delay: No Diminished Hearing: No Endocrine: Yes Gastrointestinal Disorders: Yes (WEIGHT LOSS, INTERMITTENT REFLUX) GERD: Yes Genitourinary: No Hepatitis: No Hiatal Hernia: No Hypertension: No Immune Disorder: Yes (JRA) Implanted Vascular Access Dvce: Yes (PEG TUBE/INFUSA PORT) Musculoskeletal: Yes (MITOCHONDRIAL COMPLEX 1) Neurologic: Yes (AUTISTIC,SEIZURES) Psychiatric: Yes Reproductive: No Respiratory: Yes (IGA DEFICIENCY) Immunizations Current: Yes Migraines: Yes (DAILY ) Radiation Therapy: No Renal Failure: No Seizures: Yes ( ) Sickle Cell Disease: No Sleep Apnea: No Thyroid Disease: Yes Ulcer: No Past Surgical History Abdominal Surgery: Yes (G TUBE X2) AICD: No Body Medical Devices: peg tube Cardiac Surgery: No Ear Surgery: No Endocrine Surgery: No Eye Surgery: No Genitourinary Surgery: No Gynecologic Surgery: No Insulin Pump: No Joint Replacement: No Neurologic Surgery: No Oral Surgery: No Pacemaker: No Thoracic Surgery: No Tonsillectomy: Yes Tympanostomy Tube: Yes (X2) Other Surgery: Yes (RHINOPLASTY) Social History Alcohol Use: No Tobacco Use: No Substance Use: No Allergies-Medications (Allergen,Severity, Reaction): Coded Allergies: Ceftin (Verified Allergy, Severe, RASH, 01/31/17) Per Mom. Latex (Verified Allergy, Severe, 01/31/17) TONGUE ITCHES Per Mom. Trileptal (Verified Allergy, Severe, NEURO TOXIC, 01/31/17) Per Mom. Reported Meds & Prescriptions Reported Meds & Active Scripts Active Topamax (Topiramate) 100 Mg Tab 300 Mg PO BID Synthroid (Levothyroxine Sodium) 75 Mcg Tab 75 Mcg PO DAILY@0600 Neurontin (Gabapentin) 400 Mg Cap 800 Mg PO TID Escitalopram (Escitalopram Oxalate) 20 Mg Tab 20 Mg PO DAILY Klonopin (Clonazepam) 1 Mg Tab 1 Mg PO BID Lipitor (Atorvastatin Calcium) 10 Mg Tab 10 Mg PO HS Aripiprazole 15 Mg Tab 15 Mg PO BID Lactulose Liq (Lactulose) 10 Gm/15 Ml Soln 30 Ml PO Q6H 10 Days Reported Hydroxyzine HCl 50 Mg Tab 50 Mg PO HS PRN May repeat x 1 dose in 1hr if 1st dose ineffective Olanzapine 5 Mg Tab 5 Mg PO BID Kapvay ER 12 HR (Clonidine HCl) 0.1 Mg Tab 0.2 Mg PO BID Vitamin D3 (Cholecalciferol) 2,000 Unit Tab 4,000 Units PO HS Zyrtec Allergy (Cetirizine HCl) 10 Mg Cap 10 Mg PO HS Nodolor 325-65-100 mg (Isometheptene-Dichloralphenazo) 1 Cap Cap 2 Cap PO AT ONSET OF HEADACHE PRN Fludrocortisone (Fludrocortisone Acetate) 0.1 Mg Tab 0.1 Mg PO BID Zofran (Ondansetron HCl) 4 Mg Tab 4 Mg PO Q6HR PRN Omeprazole 40 Mg Cap 40 Mg PO BID Mobic (Meloxicam) 7.5 Mg Tab 7.5 Mg PO DAILY Lorazepam 2 Mg Tab 2 Mg PO Q6H PRN Gaviscon Extra Strength (Aluminum Hydroxide-Mag Carb) 160-105 mg Chew 2 Tab CHEW HS Maximum 16 tabs/24 hrs. Clonazepam 2 Mg Tab 2 Mg PO NOON Review of Systems ROS Limitations: Poor Historian Physical Exam Narrative GENERAL: Well-nourished, well-developed patient. SKIN: Warm and dry. HEAD: Normocephalic and atraumatic. EYES: No scleral icterus. No injection or drainage. ENT: No nasal drainage noted. Mucous membranes pink. Airway patent. NECK: Supple, trachea midline. Moves head freely without obvious discomfort. CARDIOVASCULAR: Regular rate and rhythm without murmurs, gallops, or rubs. RESPIRATORY: Breath sounds equal bilaterally. No accessory muscle use. GASTROINTESTINAL: Abdomen soft, non-tender, nondistended. Feeding tube in the midabdomen. EXTREMITIES: No cyanosis or edema. BACK: Nontender without obvious deformity. No CVA tenderness. NEURO: Patient is alert and oriented. no sensorimotor deficits. Nonfocal. Normal speech. PSYCH: No delusions. No auditory or visual hallucinations. Data Data Last Documented VS Vital Signs Date Time Temp Pulse Resp B/P Pulse Ox O2 Delivery O2 Flow Rate FiO2 02/02/17 02:06 99.2 113 18 147/83 97 Room Air Orders Lorazepam Inj (Ativan Inj) (02/02/17 03:45) Restraints Violent (02/02/17 03:34) MDM Medical Decision Making Medical Screen Exam Complete: Yes Emergency Medical Condition: Yes Medical Record Reviewed: Yes Differential Diagnosis MDM: High Differential diagnoses: Schizophrenia, schizoaffective disorder, bipolar, anxiety, depression, adjustment reaction, mood disorder NOS, ODD, depressive disorder NOS, dementia, dementia with agitation, psychosis NOS, substance induced mood disorder, intermittent explosive disorder, Asperger syndrome, infection,electrolyte abnormality, malingering. Narrative Course Mental health screening discussed with the patient. Psychiatric screen ordered. The patient is been medically cleared This is autism spectrum disorder At approximately 0300 a sunday rajan was called and the psych department. Apparently the patient had been becoming increasingly disruptive and trying to enter the nursing station. He had refused to go into his room then be came confrontational with the medical staff. The patient's behavior was threatening and the patient was placed in restraints. I was notified at 0336 of the event. A restraint order was put into the computer and an order for 2 mg of Ativan IM. Subsequently I went down and performed a 1 on 1 reevaluation of the patient. The patient is resting comfortable in the examination room and 4 point restraint. There is no evidence of any injury. His vital signs are stable. His lungs are clear his heart regular. Diagnosis Primary Impression: Autism spectrum disorder Condition: Stable Modesto Ayon February 02, 2017 02:09
[2017-02-02] MEDS ORDERED: LORazepam 2 MG/ML VIAL IM ONE (03:45)
[2017-02-02 06:11] VITALS: BP 144/77; PULSE 98; RESP 18; TEMP 98.3; O2SAT 98
[2017-02-02 07:35] VITALS: BP 130/72; PULSE 87; RESP 17; TEMP 98.5; O2SAT 100
--- NOTE | 2017-02-02 08:58 | PD ---
Physical Exam Date Seen by Provider: February 02, 2017 Time Seen by Provider: 08:45 Narrative I was asked to come and check on patient by nursing staff from [facility] due to patient trying to harm himself by throwing himself on the floor. Patient required restraints. Data Data Last Documented VS Vital Signs Date Time Temp Pulse Resp B/P Pulse Ox O2 Delivery O2 Flow Rate FiO2 02/02/17 07:35 98.5 87 17 130/72 100 Room Air Orders Lorazepam Inj (Ativan Inj) (02/02/17 03:45) Restraints Violent (02/02/17 03:34) Diet Regular Basic (02/02/17 Breakfast) Restraints Violent (02/02/17 08:38) MDM Medical Record Reviewed: Yes Supervised Visit with LASHONDA: No Differential Diagnosis bipolar disorder, impulse control disorder, adjustment disorder Narrative Course 21-year-old male with multiple psychiatric issues here posing a harm to himself. He is trying to throw himself on the floor to injure his body. I have provided orders for strain. I have examined the patient and he does not have any signs of acute trauma or injury. GENERAL: AAO x 3, no acute distress, Well-nourished, well-developed patient. SKIN: Warm and dry. No visible rashes or bruising. HEAD: Normocephalic and atraumatic. EYES: No scleral icterus. No injection or drainage. ENT: No nasal drainage noted.. Airway patent. NECK: Supple, trachea midline. No JVD. CARDIOVASCULAR: Regular rate and rhythm without murmurs, gallops, or rubs. RESPIRATORY: Breath sounds equal bilaterally. No accessory muscle use. No rhonchi or rales. GASTROINTESTINAL: Abdomen soft, non-tender, nondistended. EXTREMITIES: No cyanosis or edema. BACK: Nontender without obvious deformity. No CVA tenderness. PSYCH: AAO x 3, flat affect I've advised patient that he will have to remain in restraints until further notice. Diagnosis Primary Impression: Autism spectrum disorder Condition: Stable Jessica Marcelo February 02, 2017 08:58
[2017-02-02] MEDS ORDERED: CLONIDINE 0.2 MG PO SCH (09:30)
[2017-02-02] MEDS ORDERED: ONDANSETRON ODT 4 MG TAB PO PRN (09:30)
[2017-02-02] MEDS ORDERED: OLANZapine 5 MG TAB PO SCH (09:30)
[2017-02-02] MEDS ORDERED: TOPIRAMATE 100 MG TAB PO SCH (09:30)
[2017-02-02 12:11] VITALS: BP 130/72; PULSE 87; RESP 17; O2SAT 100
--- NOTE | 2017-02-02 12:13 | PD ---
History of Present Illness Chief Complaint: Psychiatric Symptoms Time Seen by Provider: 11:35 Travel History International Travel<30 Days: No Contact w/Intl Traveler<30days: No Known affected area: No Legal Status Legal Status: Fuentes Act History of Present Illness: History of Present Illness HPI 21-year-old white male presents to emergency department under a Fuentes act by PD. This is a patient well-known to the ER staff and myself for prior ER visits due to autism and mental health issues. He was just discharged from the hospital yesterday. He has had behavioral problems at home. He left his home this evening and contacted police letting them know that he was having thoughts of hurting himself or hurting others. The patient has no current plan but merely states that he would like to be evaluated. He feels safe here at the hospital. He has no medical complaints. Seen. Record reviewed. Does not meet BA criteria PFSH Past Medical History ADHD: No Arthritis: Yes (JRA) Asthma: Yes Autoimmune Disease: Yes (decreased IGA, ?JRA, MEN1) Blood Disorders: No Bipolar Disorder: Yes Weight (Kg): 3 Anxiety: No Depression: No Cardiovascular Problems: Yes (DISAUTONOMIA) Chemotherapy: No Chest Pain: No Congestive Heart Failure: No COPD: No Cerebrovascular Accident: No Developmental Delay: No Diminished Hearing: No Endocrine: Yes Gastrointestinal Disorders: Yes (WEIGHT LOSS, INTERMITTENT REFLUX) GERD: Yes Genitourinary: No Hepatitis: No Hiatal Hernia: No Hypertension: No Immune Disorder: Yes (JRA) Implanted Vascular Access Dvce: Yes (PEG TUBE/INFUSA PORT) Medical other: Yes (MITROCHONDRIAL COMPLEX 1, , SPASTIC PARAPALEGIC, DYSAUTOMONY, MEN 1) Musculoskeletal: Yes (MITOCHONDRIAL COMPLEX 1) Neurologic: Yes (AUTISTIC,SEIZURES) Psychiatric: Yes Reproductive: No Respiratory: Yes (IGA DEFICIENCY) Immunizations Current: Yes Migraines: Yes (DAILY ) Radiation Therapy: No Renal Failure: No Seizures: Yes ( ) Sickle Cell Disease: No Sleep Apnea: No Thyroid Disease: Yes Ulcer: No Past Surgical History Abdominal Surgery: Yes (G TUBE X2) AICD: No Body Medical Devices: peg tube Cardiac Surgery: No Ear Surgery: No Endocrine Surgery: No Eye Surgery: No Genitourinary Surgery: No Gynecologic Surgery: No Insulin Pump: No Joint Replacement: No Neurologic Surgery: No Oral Surgery: No Pacemaker: No Thoracic Surgery: No Tonsillectomy: Yes Tympanostomy Tube: Yes (X2) Other Surgery: Yes (RHINOPLASTY) Psychiatric History Psychiatric History Hx Psychiatric Treatment: patient has extensive psych history, including previous admission to [facility]. DIAGNOSED WITH AUTISM. LAST ADMISSION HERE WAS December TO December History of Inpatient Treatment: Yes Social History Hx Alcohol Use: No Hx Tobacco Use: No Hx Substance Use: No Hx of Substance Use Treatment: No Allergies-Medications (Allergen,Severity, Reaction): Coded Allergies: Ceftin (Verified Allergy, Severe, RASH, 01/31/17) Per Mom. Latex (Verified Allergy, Severe, 01/31/17) TONGUE ITCHES Per Mom. Trileptal (Verified Allergy, Severe, NEURO TOXIC, 01/31/17) Per Mom. Reported Meds & Prescriptions Reported Meds & Active Scripts Active Topamax (Topiramate) 100 Mg Tab 300 Mg PO BID Synthroid (Levothyroxine Sodium) 75 Mcg Tab 75 Mcg PO DAILY@0600 Neurontin (Gabapentin) 400 Mg Cap 800 Mg PO TID Escitalopram (Escitalopram Oxalate) 20 Mg Tab 20 Mg PO DAILY Klonopin (Clonazepam) 1 Mg Tab 1 Mg PO BID Lipitor (Atorvastatin Calcium) 10 Mg Tab 10 Mg PO HS Aripiprazole 15 Mg Tab 15 Mg PO BID Lactulose Liq (Lactulose) 10 Gm/15 Ml Soln 30 Ml PO Q6H 10 Days Reported Hydroxyzine HCl 50 Mg Tab 50 Mg PO HS PRN May repeat x 1 dose in 1hr if 1st dose ineffective Olanzapine 5 Mg Tab 5 Mg PO BID Kapvay ER 12 HR (Clonidine HCl) 0.1 Mg Tab 0.2 Mg PO BID Vitamin D3 (Cholecalciferol) 2,000 Unit Tab 4,000 Units PO HS Zyrtec Allergy (Cetirizine HCl) 10 Mg Cap 10 Mg PO HS Nodolor 325-65-100 mg (Isometheptene-Dichloralphenazo) 1 Cap Cap 2 Cap PO AT ONSET OF HEADACHE PRN Fludrocortisone (Fludrocortisone Acetate) 0.1 Mg Tab 0.1 Mg PO BID Zofran (Ondansetron HCl) 4 Mg Tab 4 Mg PO Q6HR PRN Omeprazole 40 Mg Cap 40 Mg PO BID Mobic (Meloxicam) 7.5 Mg Tab 7.5 Mg PO DAILY Lorazepam 2 Mg Tab 2 Mg PO Q6H PRN Gaviscon Extra Strength (Aluminum Hydroxide-Mag Carb) 160-105 mg Chew 2 Tab CHEW HS Maximum 16 tabs/24 hrs. Clonazepam 2 Mg Tab 2 Mg PO NOON Exam Alert: Yes [place]: Person MDM Medical Decision Making Medical Record Reviewed: Yes Assessment/Plan Does not meet BA criteria at this time Lift BA and discharge home. Will not benefit from inpatient psychiatric hospitalization. Orders Lorazepam Inj (Ativan Inj) (02/02/17 03:45) Restraints Violent (02/02/17 03:34) Diet Regular Basic (02/02/17 Breakfast) Restraints Violent (02/02/17 08:38) Gabapentin (Neurontin) (02/02/17 13:00) Olanzapine (Zyprexa) (02/02/17 09:30) Topiramate (Topamax) (02/02/17 09:30) Ondansetron Odt (Zofran Odt) (02/02/17 09:30) Diet Regular Basic (02/02/17 Lunch) Results Vital Signs Date Time Temp Pulse Resp B/P Pulse Ox O2 Delivery O2 Flow Rate FiO2 02/02/17 07:35 98.5 87 17 130/72 100 Room Air 02/02/17 06:11 98.3 98 18 144/77 98 Room Air 02/02/17 02:06 99.2 113 18 147/83 97 Room Air Diagnosis Primary Impression: Autism spectrum disorder Psychiatrically Cleared: Yes Condition: Stable Asia Bondss Hillarycalvin GRAY February 02, 2017 12:13
[2017-02-02] MEDS ORDERED: GABAPENTIN 400 MG CAP PO SCH (13:00)
[2017-02-02] MEDS ORDERED: diphenhydrAMINE HCL 50 MG/ML VIAL IM PRN (13:30)
[2017-02-02] MEDS ORDERED: ZIPRASIDONE MESYLATE 20 MG VIAL IM ONE (14:00)
[2017-02-03] MEDS ORDERED: TOPA25TA8 PO (09:57)
[2017-02-03] MEDS ORDERED: BACT800T5 PO (11:58)
[2017-03-16] MEDS ORDERED: CLON1 PO (16:06)
[2017-03-16] MEDS ORDERED: QUET1TAB10 PO (16:06)
[2017-03-16] MEDS ORDERED: LORA-475 PO (16:10)
[2017-03-16] MEDS ORDERED: [UNRECOGNIZED DRUG - CODE] PO ×2 (16:10→16:13)
== END 2017-02-02 16:08 | disposition home or self-care (01) ==
LOC: NEPD 01:58 → NEPJ 16:08
DX: F84.0 Autistic disorder (principal); J45.909 Unspecified asthma, uncomplicated
CPT/HCPCS: 96372; 99285; J1200; J2060; J3486

== ENCOUNTER 2017-02-03 09:21 | Emergency (ER) | payer BC, OTHER ==
[~2017-02-03] VITALS: Ht 193 cm; Wt 108.0 kg
[2017-02-03 09:31] VITALS: BP 143/80; PULSE 118; RESP 18; TEMP 98.8; O2SAT 98
[2017-02-03] MEDS ORDERED: ALUMINUM/MAGNESIUM/SIMETH 30 ML CUP PO ONE (09:45)
[2017-02-03] MEDS ORDERED: LIDOCAINE VISCOUS 2% SOLN 15 ML UDC PO ONE (09:45)
[2017-02-03] MEDS ORDERED: ONDANSETRON ODT 4 MG TAB PO ONE (09:45)
[2017-02-03] MEDS ORDERED: SULFAMETHOXAZOLE-TRIMETHOPRIM DS 800-160 MG TAB PO ONE (09:45)
--- NOTE | 2017-02-03 09:52 | PD ---
HPI Chief Complaint: Psychiatric Symptoms Time Seen by Provider: 09:39 Travel History International Travel<30 days: No Contact w/Intl Traveler<30days: No Traveled to known affect area: No History of Present Illness HPI The patient was seen and examined in the presence of the nurse. This patient presents under police Fuentes act. He says that he wants to kill himself. He says that he was going to get one of his father's guns and shoot himself. Patient has been here 3 or 4 times in the last 4 days. He had psych evaluation yesterday. His only physical complaint is some sore throat. Pain is present when swallowing. Severity is moderate. No alleviating factors. Symptom duration of sore throat is 2 days PFSH Past Medical History ADHD: No Arthritis: Yes (JRA) Asthma: Yes Autoimmune Disease: Yes (decreased IGA, ?JRA, MEN1) Blood Disorders: No Bipolar Disorder: Yes Weight (Kg): 3 Anxiety: No Depression: No Cardiovascular Problems: Yes (DISAUTONOMIA) Chemotherapy: No Chest Pain: No Congestive Heart Failure: No COPD: No Cerebrovascular Accident: No Developmental Delay: No Diminished Hearing: No Endocrine: Yes Gastrointestinal Disorders: Yes (WEIGHT LOSS, INTERMITTENT REFLUX) GERD: Yes Genitourinary: No Hepatitis: No Hiatal Hernia: No Hypertension: No Immune Disorder: Yes (JRA) Implanted Vascular Access Dvce: Yes (PEG TUBE/INFUSA PORT) Medical other: Yes (MITROCHONDRIAL COMPLEX 1, , SPASTIC PARAPALEGIC, DYSAUTOMONY, MEN 1) Musculoskeletal: Yes (MITOCHONDRIAL COMPLEX 1) Neurologic: Yes (AUTISTIC,SEIZURES) Psychiatric: Yes Reproductive: No Respiratory: Yes (IGA DEFICIENCY) Immunizations Current: Yes Migraines: Yes (DAILY ) Radiation Therapy: No Renal Failure: No Seizures: Yes ( ) Sickle Cell Disease: No Sleep Apnea: No Thyroid Disease: Yes Ulcer: No Tetanus Vaccination: > 5 Years Influenza Vaccination: Yes Past Surgical History Abdominal Surgery: Yes (G TUBE X2) AICD: No Body Medical Devices: peg tube Cardiac Surgery: No Ear Surgery: No Endocrine Surgery: No Eye Surgery: No Genitourinary Surgery: No Gynecologic Surgery: No Insulin Pump: No Joint Replacement: No Neurologic Surgery: No Oral Surgery: No Pacemaker: No Thoracic Surgery: No Tonsillectomy: Yes Tympanostomy Tube: Yes (X2) Other Surgery: Yes (RHINOPLASTY) Social History Alcohol Use: No Tobacco Use: No Substance Use: No Allergies-Medications (Allergen,Severity, Reaction): Coded Allergies: Ceftin (Verified Allergy, Severe, RASH, 02/03/17) Per Mom. Latex (Verified Allergy, Severe, itching, 02/03/17) TONGUE ITCHES Per Mom. Trileptal (Verified Allergy, Severe, NEURO TOXIC, 02/03/17) Per Mom. Reported Meds & Prescriptions Reported Meds & Active Scripts Active Synthroid (Levothyroxine Sodium) 75 Mcg Tab 75 Mcg PO DAILY@0600 Neurontin (Gabapentin) 400 Mg Cap 800 Mg PO TID Escitalopram (Escitalopram Oxalate) 20 Mg Tab 20 Mg PO DAILY Klonopin (Clonazepam) 1 Mg Tab 1 Mg PO BID Lipitor (Atorvastatin Calcium) 10 Mg Tab 10 Mg PO HS Aripiprazole 15 Mg Tab 15 Mg PO BID Lactulose Liq (Lactulose) 10 Gm/15 Ml Soln 30 Ml PO Q6H 10 Days Reported Topamax (Topiramate) 25 Mg Tab 100 Mg PO DAILY Hydroxyzine HCl 50 Mg Tab 50 Mg PO HS PRN May repeat x 1 dose in 1hr if 1st dose ineffective Olanzapine 5 Mg Tab 5 Mg PO BID Kapvay ER 12 HR (Clonidine HCl) 0.1 Mg Tab 0.2 Mg PO BID Nodolor 325-65-100 mg (Isometheptene-Dichloralphenazo) 1 Cap Cap 2 Cap PO AT ONSET OF HEADACHE PRN Fludrocortisone (Fludrocortisone Acetate) 0.1 Mg Tab 0.1 Mg PO BID Zofran (Ondansetron HCl) 4 Mg Tab 4 Mg PO Q6HR PRN Omeprazole 40 Mg Cap 40 Mg PO BID Mobic (Meloxicam) 7.5 Mg Tab 7.5 Mg PO DAILY Lorazepam 2 Mg Tab 2 Mg PO Q6H PRN Gaviscon Extra Strength (Aluminum Hydroxide-Mag Carb) 160-105 mg Chew 2 Tab CHEW HS Maximum 16 tabs/24 hrs. Clonazepam 2 Mg Tab 2 Mg PO NOON Review of Systems General / Constitutional: Positive: Fever Eyes: No: Visual changes HENT: Positive: Sore Throat, No: Headaches Cardiovascular: No: Chest Pain or Discomfort Respiratory: No: Shortness of Breath Gastrointestinal: No: Abdominal Pain Genitourinary: No: Dysuria Musculoskeletal: No: Pain Skin: No Rash Neurologic: No: Weakness Psychiatric: Positive: Depression, Suicidal Ideations Endocrine: No: Polydipsia Hematologic/Lymphatic: No: Easy Bruising Physical Exam Narrative GENERAL: Well-nourished, well-developed patient in no apparent distress. SKIN: Focused skin assessment reveals no rash and nodules. Skin is Warm and dry. HEAD: Atraumatic. Normocephalic. EYES: Pupils equal and round. No scleral icterus. No injection or drainage. ENT: No nasal bleeding or discharge. Mucous membranes pink and moist. Throat is posterior pharynx erythema without exudate NECK: Trachea midline. No JVD. No meningeal signs CARDIOVASCULAR: Regular rate and rhythm. No murmur appreciated. RESPIRATORY: No accessory muscle use. Clear to auscultation. Breath sounds equal bilaterally. GASTROINTESTINAL: Abdomen soft, non-tender, nondistended. Hepatic and splenic margins not palpable. MUSCULOSKELETAL: No obvious deformities. No clubbing. No cyanosis. No edema. NEUROLOGICAL: Awake and alert. No obvious cranial nerve deficits. Motor grossly within normal limits. Normal speech. PSYCHIATRIC: Appropriate mood and affect; insight and judgment poor. Data Data Last Documented VS Vital Signs Date Time Temp Pulse Resp B/P Pulse Ox O2 Delivery O2 Flow Rate FiO2 02/03/17 10:37 102 17 134/68 99 Room Air 02/03/17 09:31 98.8 Orders Psych Screen (02/03/17 09:44) Sulfamet-Trimeth Ds 800-160 Mg (Bactrim (02/03/17 09:45) Ondansetron Odt (Zofran Odt) (02/03/17 09:45) Lidocaine 2% Viscous (Xylocaine 2% Visco (02/03/17 09:45) Al-Mag Hy-Si 40-40-4 Mg/Ml Liq (Mag-Al P (02/03/17 09:45) MDM Medical Decision Making Medical Screen Exam Complete: Yes Emergency Medical Condition: Yes Medical Record Reviewed: Yes Differential Diagnosis Suicidal ideation, depression, malingering, pharyngitis Narrative Course I have reviewed the patient's electronic medical record. Reviewed his psychiatric evaluation from yesterday. Reviewed his lab studies from 3 days ago I don't feel he needs repeat labs since he just had them 3 days ago and is a 21- year-old He has some degree of pharyngitis given his sore throat and erythematous posterior pharynx and temp of 99 I gave him a dose of Bactrim DS and Zofran and Magic mouthwash for symptom relief Psychiatric evaluation has been ordered given that he is here under Fuentes act. He is agreeable to do this. Wrote a prescription for Bactrim in case the patient does not say in psychiatry. No indication for medical admission. He is a stable as I can make him. Diagnosis Primary Impression: Autism spectrum disorder Additional Impressions: Suicidal ideation Pharyngitis, acute Qualified Code: J02.9 - Acute pharyngitis, unspecified etiology Nikhil Romo MD February 03, 2017 09:52
[2017-02-03] MEDS ORDERED: TOPA25TA8 PO (09:57)
[2017-02-03 10:37] VITALS: BP 134/68; PULSE 102; RESP 17; O2SAT 99
[2017-02-03] MEDS ORDERED: BACT800T5 PO (11:58)
[2017-02-03 13:31] VITALS: BP 139/74; PULSE 100; RESP 16; TEMP 97.8; O2SAT 95
[2017-02-03] MEDS ORDERED: clonazePAM 1 MG TAB PO ONE (22:15)
[2017-02-03 22:49] VITALS: BP 126/86; PULSE 111; RESP 18; RESP 8; O2SAT 98
[2017-02-03] MEDS ORDERED: diphenhydrAMINE HCL 50 MG/ML VIAL IM ONE (23:45)
[2017-02-03] MEDS ORDERED: HALOPERIDOL LACTATE 5 MG/ML AMP IM ONE (23:45)
[2017-02-04 02:37] VITALS: BP 137/61; PULSE 106; RESP 19; O2SAT 98
--- NOTE | 2017-02-04 04:24 | PD ---
Physical Exam Date Seen by Provider: February 04, 2017 Time Seen by Provider: 03:28 Narrative GENERAL: This is a well-nourished, well-developed patient, in no apparent distress. SKIN: No rashes, ecchymoses or lesions. Warm and dry. HEAD: Atraumatic. Normocephalic. EYES: PERRL, EOMI, no discharge or injection. No scleral icterus. EARS: Clear NOSE: Nasal turbinates appear normal. THROAT: Mucosa pink and moist. Airway patent. NECK: Trachea midline. supple, moves head freely. LUNGS: Clear to auscultation. CV: Regular in rhythm. ABDOMEN: Soft nontender. EXT: No clubbing cyanosis or edema. Data Data Last Documented VS Vital Signs Date Time Temp Pulse Resp B/P Pulse Ox O2 Delivery O2 Flow Rate FiO2 02/04/17 02:37 106 19 137/61 98 Room Air 02/03/17 13:31 97.8 Orders Psych Screen (02/03/17 09:44) Sulfamet-Trimeth Ds 800-160 Mg (Bactrim (02/03/17 09:45) Ondansetron Odt (Zofran Odt) (02/03/17 09:45) Lidocaine 2% Viscous (Xylocaine 2% Visco (02/03/17 09:45) Al-Mag Hy-Si 40-40-4 Mg/Ml Liq (Mag-Al P (02/03/17 09:45) Diet Regular Basic (02/03/17 Dinner) Restraints Non-Violent CARMELIAT.Q3H (02/03/17 17:40) Clonazepam (Klonopin) (02/03/17 22:15) Haloperidol Inj (Haldol Inj) (02/03/17 23:45) Diphenhydramine Inj (Benadryl Inj) (02/03/17 23:45) Restraints Violent (02/04/17 03:29) MDM Medical Record Reviewed: Yes Supervised Visit with LASHONDA: Yes Narrative Course I was asked by the nursing staff and gait prior to place an order for violent restraints. The patient had become agitated and combative with staff. Patient had scratched to is the techs and kicked one in the groin this evening when he refused to follow commands and go back in his room. The patient was placed restraints for approximately 10 minutes. The patient then became cooperative and was taken out of restraints. There is no indication for chemical restraints due to his de-escalation of his symptoms. It appears this is more of a personality or attention-getting action on the patient. Diagnosis Primary Impression: Autism spectrum disorder Additional Impressions: Suicidal ideation Pharyngitis, acute Qualified Code: J02.9 - Acute pharyngitis, unspecified etiology Scripts Sulfamethoxazole-Trimethoprim (Bactrim DS)800-160 Mg Tab1 Tab PO BID #14 TAB Ref 0 Prov:Nikhil Romo MD 02/03/17 [place] Ayon February 04, 2017 04:24
[2017-02-04 06:20] VITALS: BP 146/79; PULSE 107; RESP 16; TEMP 98.6; O2SAT 99
[2017-02-04 11:00] VITALS: BP 138/83; PULSE 94; RESP 18
[2017-02-04 13:41] VITALS: BP 138/88; PULSE 92; RESP 20; O2SAT 100
[2017-02-04] MEDS ORDERED: OLANZapine 5 MG TAB PO SCH (14:00)
[2017-02-04] MEDS ORDERED: ESCITALOPRAM OXALATE 20 MG TAB PO SCH (14:00)
[2017-02-04] MEDS ORDERED: IBUPROFEN 400 MG TAB PO ONE (14:00)
[2017-02-04] MEDS ORDERED: TOPIRAMATE 100 MG TAB PO SCH (14:00)
[2017-02-04] MEDS ORDERED: FLUDROCORTISONE ACETATE 0.1 MG TAB PO SCH (14:00)
[2017-02-04] MEDS ORDERED: PANTOPRAZOLE SOD 40 MG DELAYED RELEASE TAB PO SCH (14:15)
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
[2017-02-04] MEDS ORDERED: GABAPENTIN 400 MG CAP PO SCH (18:00)
[2017-03-16] MEDS ORDERED: CLON1 PO (16:06)
[2017-03-16] MEDS ORDERED: QUET1TAB10 PO (16:06)
[2017-03-16] MEDS ORDERED: [UNRECOGNIZED DRUG - CODE] PO ×2 (16:10→16:13)
[2017-03-16] MEDS ORDERED: LORA-475 PO (16:10)
== END 2017-02-04 14:20 ==
LOC: NEPC 09:21 → NEPJ 02-04 14:20
DX: F84.0 Autistic disorder (principal); R45.851 Suicidal ideations; J02.9 Acute pharyngitis, unspecified
CPT/HCPCS: 96372; 99285; J1200; J1630

== ENCOUNTER 2017-02-11 11:47 | Emergency (ER) | payer BC, OTHER ==
[~2017-02-11 11:47] MED LIST changes: +BACT800T5 PO; -TOPA100T11 PO; +TOPA25TA8 PO; -VITA200012 PO; -ZYRT10CA PO
[2017-02-11 11:50] VITALS: BP 94/69; PULSE 88; RESP 16; TEMP 98.1; O2SAT 98
[2017-02-11] MEDS ORDERED: CETI-1 PO (12:06)
[2017-02-11] MEDS ORDERED: VITA2000 PO (12:06)
--- NOTE | 2017-02-11 12:12 | PD ---
HPI Chief Complaint: Pain: Acute or Chronic Time Seen by Provider: 12:06 Travel History International Travel<30 days: No Contact w/Intl Traveler<30days: No Traveled to known affect area: No History of Present Illness HPI 21-year-old male with history of autism spectrum disorder presents to the emergency room with his mother for evaluation of possible foreign body to the right foot. Patient's mother was cutting his toenails this morning when she noticed a small, tender area on the bottom of his foot. Patient complained of pain and then wanted to have it checked out. He states after his recent stay at [facility] where he was walking around barefoot in the halls , he noticed the lesion. There is no history of fever, chills, nausea, or vomiting. He has not complained of pain or seemed bothered by it until his mother push on it today. He has been ambulatory without difficulty since leaving [facility] one week ago. Patient does have muscular dystrophy and neuropathy and uses a wheelchair but can ambulate without it. Up-to-date on vaccinations. PFSH Past Medical History ADHD: No Arthritis: Yes (JRA) Asthma: Yes Autoimmune Disease: Yes (decreased IGA, ?JRA, MEN1) Blood Disorders: No Bipolar Disorder: Yes Weight (Kg): 3 Anxiety: No Depression: No Cardiovascular Problems: Yes (DISAUTONOMIA) Chemotherapy: No Chest Pain: No Congestive Heart Failure: No COPD: No Cerebrovascular Accident: No Developmental Delay: No Diminished Hearing: No Endocrine: Yes Gastrointestinal Disorders: Yes (WEIGHT LOSS, INTERMITTENT REFLUX) GERD: Yes Genitourinary: No Hepatitis: No Hiatal Hernia: No Heparin Induced Thrombocytopen: No Hypertension: No Immune Disorder: Yes (JRA) Implanted Vascular Access Dvce: Yes (PEG TUBE/INFUSA PORT) Medical other: Yes (MITROCHONDRIAL COMPLEX 1, , SPASTIC PARAPALEGIC, DYSAUTOMONY, MEN 1) Musculoskeletal: Yes (MITOCHONDRIAL COMPLEX 1) Neurologic: Yes (AUTISTIC,SEIZURES) Psychiatric: Yes Reproductive: No Respiratory: Yes (IGA DEFICIENCY) Immunizations Current: Yes Migraines: Yes (DAILY ) Radiation Therapy: No Renal Failure: No Seizures: Yes ( ) Sickle Cell Disease: No Sleep Apnea: No Thyroid Disease: Yes Ulcer: No Past Surgical History Abdominal Surgery: Yes (G TUBE X2) AICD: No Body Medical Devices: peg tube Cardiac Surgery: No Ear Surgery: No Endocrine Surgery: No Eye Surgery: No Genitourinary Surgery: No Gynecologic Surgery: No Insulin Pump: No Joint Replacement: No Neurologic Surgery: No Oral Surgery: No Pacemaker: No Thoracic Surgery: No Tonsillectomy: Yes Tympanostomy Tube: Yes (X2) Other Surgery: Yes (RHINOPLASTY) Social History Alcohol Use: No Tobacco Use: No Substance Use: No Allergies-Medications (Allergen,Severity, Reaction): Coded Allergies: Ceftin (Verified Allergy, Severe, RASH, 02/11/17) Per Mom. Latex (Verified Allergy, Severe, itching, 02/11/17) TONGUE ITCHES Per Mom. Trileptal (Verified Allergy, Severe, NEURO TOXIC, 02/11/17) Per Mom. Reported Meds & Prescriptions Reported Meds & Active Scripts Active Augmentin (Amoxicillin-Clavulanate) 875-125 Mg Tab 1 Tab PO BID 7 Days Synthroid (Levothyroxine Sodium) 75 Mcg Tab 75 Mcg PO DAILY@0600 Neurontin (Gabapentin) 400 Mg Cap 800 Mg PO TID Escitalopram (Escitalopram Oxalate) 20 Mg Tab 20 Mg PO DAILY Klonopin (Clonazepam) 1 Mg Tab 1 Mg PO BID Aripiprazole 15 Mg Tab 15 Mg PO BID Lactulose Liq (Lactulose) 10 Gm/15 Ml Soln 30 Ml PO Q6H 10 Days Reported Zyrtec (Cetirizine HCl) 10 Mg Tablet 10 Mg PO DAILY PRN Vitamin D3 (Cholecalciferol) 2,000 Unit Cap 4,000 Units PO DAILY Topamax (Topiramate) 25 Mg Tab 100 Mg PO BID Hydroxyzine HCl 50 Mg Tab 50 Mg PO HS PRN May repeat x 1 dose in 1hr if 1st dose ineffective Olanzapine 5 Mg Tab 5 Mg PO DAILY Kapvay ER 12 HR (Clonidine HCl) 0.1 Mg Tab 0.2 Mg PO BID Nodolor 325-65-100 mg (Isometheptene-Dichloralphenazo) 1 Cap Cap 2 Cap PO AT ONSET OF HEADACHE PRN Fludrocortisone (Fludrocortisone Acetate) 0.1 Mg Tab 0.1 Mg PO BID Zofran (Ondansetron HCl) 4 Mg Tab 4 Mg PO Q6HR PRN Omeprazole 40 Mg Cap 40 Mg PO BID Mobic (Meloxicam) 7.5 Mg Tab 7.5 Mg PO DAILY Lorazepam 2 Mg Tab 2 Mg PO Q6H PRN Gaviscon Extra Strength (Aluminum Hydroxide-Mag Carb) 160-105 mg Chew 2 Tab CHEW HS Maximum 16 tabs/24 hrs. Clonazepam 2 Mg Tab 2 Mg PO NOON Review of Systems Except as stated in HPI: all other systems reviewed are Neg Physical Exam Narrative GENERAL: Well-nourished male in no acute distress. Presents in wheelchair. SKIN: Focused skin assessment warm/dry. There is an indurated area in the right plantar midfoot which measures about 1 cm in diameter. It is fluctuant but there is no pointing or drainage. There is a zone of inflammation around it but no lymphangitis. HEAD: Normocephalic. EYES: No scleral icterus. No injection or drainage. NECK: Supple, trachea midline. No JVD or lymphadenopathy. CARDIOVASCULAR: Regular rate and rhythm without murmurs, gallops, or rubs. RESPIRATORY: Breath sounds equal bilaterally. No accessory muscle use. PSYCHIATRIC: No delusional thought processes. No hallucinations. Data Data Last Documented VS Vital Signs Date Time Temp Pulse Resp B/P Pulse Ox O2 Delivery O2 Flow Rate FiO2 02/11/17 11:50 98.1 88 16 94/69 98 Orders Lidocai-Epi 1%-1:100,000 Inj (Xylocaine- (02/11/17 12:15) Lidocai-Epi 1%-1:100,000 Inj (Xylocaine- (02/11/17 12:15) MDM Medical Decision Making Medical Screen Exam Complete: Yes Emergency Medical Condition: Yes Medical Record Reviewed: Yes Differential Diagnosis Abscess versus foreign body versus cellulitis Narrative Course 21-year-old male with a history of autism spectrum disorder presents to the emergency room with his mother for evaluation of right foot pain/possible foreign body that he first complained of today. Physical exam reveals a small blister like abscess on the plantar right foot. It is mildly tender to palpation. There is no appreciable foreign body on exam. No significant surrounding erythema or lymphangitis. Patient has history of neuropathy and his mother was concerned it would get out of control so she wanted to come to the emergency room to have it evaluated. Patient does not remember stepping on glass. Incision and drainage performed, see procedure note for details. While ciprofloxacin is ideal for plantar foot wounds, patient is on 2 other medications that increase risk for QT prolongation so he will be given Augmentin. Told to follow up with his primary care physician and return for worsening symptoms. He has appointment with the cardiovascular surgeon in 2 weeks. Mother understands and agrees to plan. Procedures Procedure Narrative INCISION AND DRAINAGE OF ABSCESS: The area was prepped and was sterilely draped. A subcutaneous wheal of 1% lidocaine with epinephrine with a total number 3 mL was used to anesthetize the area properly. A number 11 scalpel was used to make a 1 cm incision across the area of the abscess. No foreign body was appreciated on exam. The abscess was drained, complex loculations were broken down, and irrigated with normal saline. Sterile dressing applied. Diagnosis Primary Impression: Abscess of plantar aspect of foot Referrals: Primary Care Physician Patient Instructions: Abscess (ED), General Instructions Additional Instructions: Rest and drink plenty of fluids. Take Augmentin as directed, until gone. Follow up with a primary care physician. Return to emergency room for worsening symptoms, as discussed. Med/Other Pt SpecificInfo: Prescription(s) given Scripts Amoxicillin-Clavulanate (Augmentin)875-125 Mg Tab1 Tab PO BID 7 Days Ref 0 Prov:Alka Viera MD 02/11/17 Disposition: 01 DISCHARGE HOME Condition: Stable Jennie Demarco Feb 11, 2017 12:12
[2017-02-11] MEDS ORDERED: LIDOCAINE 1%/EPINEPHrine 1:100,000 SOLN 20 ML VIAL INFIL ONE (12:15)
[2017-02-11] MEDS ORDERED: LIDOCAINE 1%/EPINEPHrine 1:100,000 SOLN 30 ML VIAL INFIL ONE (12:15)
[2017-02-11] MEDS ORDERED: AUGM875T3 PO (12:32)
[2017-03-16] MEDS ORDERED: QUET1TAB10 PO (16:06)
[2017-03-16] MEDS ORDERED: CLON1 PO (16:06)
[2017-03-16] MEDS ORDERED: [UNRECOGNIZED DRUG - CODE] PO ×2 (16:10→16:13)
[2017-03-16] MEDS ORDERED: LORA-475 PO (16:10)
== END 2017-02-11 12:52 | disposition home or self-care (01) ==
LOC: PHED 11:47 → PHEFT 12:52
DX: L02.611 Cutaneous abscess of right foot (principal); F84.0 Autistic disorder; G71.0 Muscular dystrophy; G62.9 Polyneuropathy, unspecified; E07.9 Disorder of thyroid, unspecified; Z87.39 Personal history of other diseases of the musculoskeletal system and connective tissue; Z87.09 Personal history of other diseases of the respiratory system; Z86.2 Personal history of diseases of the blood and blood-forming organs and certain disorders involving the immune mechanism; Z86.59 Personal history of other mental and behavioral disorders; Z86.79 Personal history of other diseases of the circulatory system; Z87.19 Personal history of other diseases of the digestive system; Z86.69 Personal history of other diseases of the nervous system and sense organs
CPT/HCPCS: 10060

== ENCOUNTER 2017-02-18 19:51 | Emergency (ER) | payer BC, OTHER ==
[~2017-02-18 19:51] MED LIST changes: +AUGM875T3 PO; -BACT800T5 PO; +CETI-1 PO; -LIPI10TA PO; +VITA2000 PO
[2017-02-18 20:15] LABS: MEAN CORPUSCULAR HGB CONC 28.3 % (32.0-36.0)
[2017-02-18 20:23] VITALS: BP 132/64; PULSE 85; RESP 16; TEMP 98.8; O2SAT 100
--- NOTE | 2017-02-18 20:38 | PD ---
HPI Chief Complaint: Psychiatric Symptoms Time Seen by Provider: 20:33 Travel History International Travel<30 days: No Contact w/Intl Traveler<30days: No Traveled to known affect area: No History of Present Illness HPI 21 yo male here for evaluation of BA. He has a long standing history of autism with behavioral disturbances. Has been here multiple time and has been seen by me as well before. Per fuentes act he told police he was going to shut himself in the head because his mother was not nice to him. Denies any medical issues at this time. 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 History is limited secondary to the patient's mental status. PFSH Past Medical History ADHD: No Arthritis: Yes (JRA) Asthma: Yes Autoimmune Disease: Yes (decreased IGA, ?JRA, MEN1) Blood Disorders: No Bipolar Disorder: Yes Anxiety: No Depression: No Cardiovascular Problems: Yes (DISAUTONOMIA) Chemotherapy: No Chest Pain: No Congestive Heart Failure: No COPD: No Cerebrovascular Accident: No Developmental Delay: No Diminished Hearing: No Endocrine: Yes Gastrointestinal Disorders: Yes (WEIGHT LOSS, INTERMITTENT REFLUX) GERD: Yes Genitourinary: No Hepatitis: No Hiatal Hernia: No Heparin Induced Thrombocytopen: No Hypertension: No Immune Disorder: Yes (JRA) Implanted Vascular Access Dvce: Yes (PEG TUBE/INFUSA PORT) Musculoskeletal: Yes (MITOCHONDRIAL COMPLEX 1) Neurologic: Yes (AUTISTIC,SEIZURES) Psychiatric: Yes Reproductive: No Respiratory: Yes (IGA DEFICIENCY) Immunizations Current: Yes Migraines: Yes (DAILY ) Radiation Therapy: No Renal Failure: No Seizures: Yes ( ) Sickle Cell Disease: No Sleep Apnea: No Thyroid Disease: Yes Ulcer: No Past Surgical History Abdominal Surgery: Yes (G TUBE X2) AICD: No Body Medical Devices: peg tube Cardiac Surgery: No Ear Surgery: No Endocrine Surgery: No Eye Surgery: No Genitourinary Surgery: No Gynecologic Surgery: No Insulin Pump: No Joint Replacement: No Neurologic Surgery: No Oral Surgery: No Pacemaker: No Thoracic Surgery: No Tonsillectomy: Yes Tympanostomy Tube: Yes (X2) Other Surgery: Yes (RHINOPLASTY) Social History Alcohol Use: No Tobacco Use: No Substance Use: No Allergies-Medications (Allergen,Severity, Reaction): Coded Allergies: Ceftin (Verified Allergy, Severe, RASH, 02/18/17) Per Mom. Latex (Verified Allergy, Severe, itching, 02/18/17) TONGUE ITCHES Per Mom. Trileptal (Verified Allergy, Severe, NEURO TOXIC, 02/18/17) Per Mom. Reported Meds & Prescriptions Reported Meds & Active Scripts Active Augmentin (Amoxicillin-Clavulanate) 875-125 Mg Tab 1 Tab PO BID 7 Days Synthroid (Levothyroxine Sodium) 75 Mcg Tab 75 Mcg PO DAILY@0600 Neurontin (Gabapentin) 400 Mg Cap 800 Mg PO TID Escitalopram (Escitalopram Oxalate) 20 Mg Tab 20 Mg PO DAILY Klonopin (Clonazepam) 1 Mg Tab 1 Mg PO BID Aripiprazole 15 Mg Tab 15 Mg PO BID Lactulose Liq (Lactulose) 10 Gm/15 Ml Soln 30 Ml PO Q6H 10 Days Reported Zyrtec (Cetirizine HCl) 10 Mg Tablet 10 Mg PO DAILY PRN Vitamin D3 (Cholecalciferol) 2,000 Unit Cap 4,000 Units PO DAILY Topamax (Topiramate) 25 Mg Tab 100 Mg PO BID Hydroxyzine HCl 50 Mg Tab 50 Mg PO HS PRN May repeat x 1 dose in 1hr if 1st dose ineffective Olanzapine 5 Mg Tab 5 Mg PO DAILY Kapvay ER 12 HR (Clonidine HCl) 0.1 Mg Tab 0.2 Mg PO BID Nodolor 325-65-100 mg (Isometheptene-Dichloralphenazo) 1 Cap Cap 2 Cap PO AT ONSET OF HEADACHE PRN Fludrocortisone (Fludrocortisone Acetate) 0.1 Mg Tab 0.1 Mg PO BID Zofran (Ondansetron HCl) 4 Mg Tab 4 Mg PO Q6HR PRN Omeprazole 40 Mg Cap 40 Mg PO BID Mobic (Meloxicam) 7.5 Mg Tab 7.5 Mg PO DAILY Lorazepam 2 Mg Tab 2 Mg PO Q6H PRN Gaviscon Extra Strength (Aluminum Hydroxide-Mag Carb) 160-105 mg Chew 2 Tab CHEW HS Maximum 16 tabs/24 hrs. Clonazepam 2 Mg Tab 2 Mg PO NOON Review of Systems ROS Limitations: Poor Historian Except as stated in HPI: all other systems reviewed are Neg Physical Exam Exam Limitations: Poor Historian Narrative GENERAL: SKIN: Warm and dry. HEAD: Atraumatic. Normocephalic. EYES: Pupils equal and round. No scleral icterus. No injection or drainage. ENT: No nasal bleeding or discharge. Mucous membranes pink and moist. tongue is midline, no uvula deviation NECK: Trachea midline. No JVD. CARDIOVASCULAR: Regular rate and rhythm. RESPIRATORY: No accessory muscle use. Clear to auscultation. Breath sounds equal bilaterally. GASTROINTESTINAL: Abdomen soft, non-tender, nondistended. Hepatic and splenic margins not palpable. MUSCULOSKELETAL: Extremities without clubbing, cyanosis, or edema. No obvious deformities. Full range of motion of the upper and lower extremities. 2+ pulses bilaterally. NEUROLOGICAL: Awake and alert. No obvious cranial nerve deficits. Motor grossly within normal limits. Five out of 5 muscle strength in the arms and legs. Normal speech. PSYCHIATRIC: Autistic mood and affect; insight and judgment normal. Data Data Last Documented VS Vital Signs Date Time Temp Pulse Resp B/P Pulse Ox O2 Delivery O2 Flow Rate FiO2 02/18/17 20:23 98.8 85 16 132/64 100 Orders Complete Blood Count With Diff (02/18/17 20:14) Comprehensive Metabolic Panel (02/18/17 20:14) Psych Screen (02/18/17 20:14) Ammonia (02/18/17 20:14) Labs Laboratory Tests Test 02/18/17 21:10 White Blood Count 8.1 TH/MM3 Red Blood Count 5.33 MIL/MM3 Hemoglobin 11.1 GM/DL Hematocrit 39.3 % Mean Corpuscular Volume 73.6 FL Mean Corpuscular Hemoglobin 20.8 PG Mean Corpuscular Hemoglobin 28.3 % Concent Red Cell Distribution Width 19.8 % Platelet Count 234 TH/MM3 Mean Platelet Volume 7.0 FL Neutrophils (%) (Auto) 56.2 % Lymphocytes (%) (Auto) 25.7 % Monocytes (%) (Auto) 9.5 % Eosinophils (%) (Auto) 8.2 % Basophils (%) (Auto) 0.4 % Neutrophils # (Auto) 4.5 TH/MM3 Lymphocytes # (Auto) 2.1 TH/MM3 Monocytes # (Auto) 0.8 TH/MM3 Eosinophils # (Auto) 0.7 TH/MM3 Basophils # (Auto) 0.0 TH/MM3 CBC Comment DIFF FINAL Differential Comment Sodium Level 142 MEQ/L Potassium Level 3.7 MEQ/L Chloride Level 109 MEQ/L Carbon Dioxide Level 21.9 MEQ/L Anion Gap 11 MEQ/L Blood Urea Nitrogen 15 MG/DL Creatinine 0.80 MG/DL Estimat Glomerular Filtration 125 ML/MIN Rate Random Glucose 102 MG/DL Calcium Level 8.7 MG/DL Aspartate Amino Transf 21 U/L (AST/SGOT) Alanine Aminotransferase 39 U/L (ALT/SGPT) Albumin 3.5 GM/DL MDM Medical Decision Making Medical Screen Exam Complete: Yes Emergency Medical Condition: Yes Medical Record Reviewed: Yes Interpretation(s) CBC & BMP Diagram 02/18/17 21:10 Differential Diagnosis Depression versus suicidal ideation versus anxiety versus adjustment disorder versus mood disorder versus bipolar disorder versus schizophrenia versus paranoid disorder versus psychosis versus substance abuse versus alcohol abuse versus alcohol induced psychosis versus homicidality addition versus cutting versus personality disorder Narrative Course 21-year-old male that presents to the ED for evaluation of psych. Patient was Fuentes acted by police. Patient was properly examined and was found to have no signs of acute medical distress. 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 At this time patient is not agitated and appears to be calm. Labs were drawn. Patient will be medically clear. Okay to be seen by psych. Mental health screening was discussed with the patient. Diagnosis Primary Impression: Autism spectrum disorder Additional Impression: Adjustment disorder with disturbance of conduct Tye Benjamin Feb 18, 2017 20:38
[2017-02-18 21:49] LABS: AUTOMATED NEUTROPHIL # 4.5 TH/MM3 (1.8-7.7); BASOPHIL % 0.4 % (0.0-2.0); EOSINOPHIL # 0.7 TH/MM3 (0-0.4); EOSINOPHIL % 8.2 % (0.0-4.0); HEMATOCRIT 39.3 % (39.0-51.0); HEMO FLAGS DIFF FINAL; LYMPH % 25.7 % (9.0-44.0); LYMPHOCYTE # 2.1 TH/MM3 (1.0-4.8); MEAN CELL VOLUME 73.6 FL (80.0-100.0); MEAN CORPUSCULAR HEMOGLOBIN 20.8 PG (27.0-34.0); MONO % 9.5 % (0.0-8.0); NEUT % 56.2 % (16.0-70.0); PLATELET COUNT 234 TH/MM3 (150-450); RED BLOOD COUNT 5.33 MIL/MM3 (4.50-5.90); RED CELL DISTRIBUTION WIDTH 19.8 % (11.6-17.2); WHITE BLOOD COUNT 8.1 TH/MM3 (4.0-11.0)
[2017-02-18 21:56] LABS: ANION GAP 11 MEQ/L (5-15); AST (GOT) 21 U/L (15-39); BICARBONATE 21.9 MEQ/L (21.0-32.0); BLOOD UREA NITROGEN 15 MG/DL (7-18); CHLORIDE 109 MEQ/L (98-107); GLOMERULAR FILTRATION RATE 125 ML/MIN (>89); POTASSIUM 3.7 MEQ/L (3.5-5.1); SODIUM (NA) 142 MEQ/L (136-145)
[2017-02-18 21:57] LABS: ALT (GPT) 39 U/L (9-52)
[2017-02-18 21:59] LABS: ALKALINE PHOSPHATASE 106 U/L (45-117); TOTAL BILIRUBIN ADULT 0.2 MG/DL (0.2-1.0)
[2017-02-19 00:13] VITALS: BP 132/78; PULSE 70; RESP 16; TEMP 98.3; O2SAT 99
--- NOTE | 2017-02-19 10:36 | PD ---
History of Present Illness Chief Complaint: Psychiatric Symptoms Time Seen by Provider: 10:35 Travel History International Travel<30 Days: No Contact w/Intl Traveler<30days: No Known affected area: No Legal Status Legal Status: Fuentes Act History of Present Illness: History of Present Illness HPI 21 yo male with history of autism spectrum disorder here for evaluation of BA. The BA alleges that patient notified the police that he was going to shoot himself because his mother was not nice to him. He has a long standing history of autism with behavioral disturbances. Has been here multiple time and has been seen by me as well before for similar complaints. The patient is seen in main ed with sitter at bedside. He is calm and cooperative. he claims he does not know why he is here. He has not been agitated and has presented no indication of any acute psychiatric symptomatology. PFSH Past Medical History ADHD: No Arthritis: Yes (JRA) Asthma: Yes Autoimmune Disease: Yes (decreased IGA, ?JRA, MEN1) Blood Disorders: No Bipolar Disorder: Yes Weight (Kg): 3 Anxiety: No Depression: No Cardiovascular Problems: Yes (DISAUTONOMIA) Chemotherapy: No Chest Pain: No Congestive Heart Failure: No COPD: No Cerebrovascular Accident: No Developmental Delay: No Diminished Hearing: No Endocrine: Yes Gastrointestinal Disorders: Yes (WEIGHT LOSS, INTERMITTENT REFLUX) GERD: Yes Genitourinary: No Hepatitis: No Hiatal Hernia: No Heparin Induced Thrombocytopen: No Hypertension: No Immune Disorder: Yes (JRA) Implanted Vascular Access Dvce: Yes (PEG TUBE/INFUSA PORT) Medical other: Yes (MITROCHONDRIAL COMPLEX 1, , SPASTIC PARAPALEGIC, DYSAUTOMONY, MEN 1) Musculoskeletal: Yes (MITOCHONDRIAL COMPLEX 1) Neurologic: Yes (AUTISTIC,SEIZURES) Psychiatric: Yes Reproductive: No Respiratory: Yes (IGA DEFICIENCY) Immunizations Current: Yes Migraines: Yes (DAILY ) Radiation Therapy: No Renal Failure: No Seizures: Yes ( ) Sickle Cell Disease: No Sleep Apnea: No Thyroid Disease: Yes Ulcer: No Past Surgical History Abdominal Surgery: Yes (G TUBE X2) AICD: No Body Medical Devices: peg tube Cardiac Surgery: No Ear Surgery: No Endocrine Surgery: No Eye Surgery: No Genitourinary Surgery: No Gynecologic Surgery: No Insulin Pump: No Joint Replacement: No Neurologic Surgery: No Oral Surgery: No Pacemaker: No Thoracic Surgery: No Tonsillectomy: Yes Tympanostomy Tube: Yes (X2) Other Surgery: Yes (RHINOPLASTY) Psychiatric History Psychiatric History Hx Psychiatric Treatment: patient has extensive psych history, including previous admission to [facility]. DIAGNOSED WITH AUTISM. LAST ADMISSION HERE WAS December TO December History of Inpatient Treatment: Yes Guns or firearms in home: No Social History Single, never . Lives with his mother. Hx Alcohol Use: No Hx Tobacco Use: No Hx Substance Use: No Hx of Substance Use Treatment: No Family Psychiatric History negative Allergies-Medications (Allergen,Severity, Reaction): Coded Allergies: Ceftin (Verified Allergy, Severe, RASH, 02/18/17) Per Mom. Latex (Verified Allergy, Severe, itching, 02/18/17) TONGUE ITCHES Per Mom. Trileptal (Verified Allergy, Severe, NEURO TOXIC, 02/18/17) Per Mom. Reported Meds & Prescriptions Reported Meds & Active Scripts Active Augmentin (Amoxicillin-Clavulanate) 875-125 Mg Tab 1 Tab PO BID 7 Days Synthroid (Levothyroxine Sodium) 75 Mcg Tab 75 Mcg PO DAILY@0600 Neurontin (Gabapentin) 400 Mg Cap 800 Mg PO TID Escitalopram (Escitalopram Oxalate) 20 Mg Tab 20 Mg PO DAILY Klonopin (Clonazepam) 1 Mg Tab 1 Mg PO BID Aripiprazole 15 Mg Tab 15 Mg PO BID Lactulose Liq (Lactulose) 10 Gm/15 Ml Soln 30 Ml PO Q6H 10 Days Reported Zyrtec (Cetirizine HCl) 10 Mg Tablet 10 Mg PO DAILY PRN Vitamin D3 (Cholecalciferol) 2,000 Unit Cap 4,000 Units PO DAILY Topamax (Topiramate) 25 Mg Tab 100 Mg PO BID Hydroxyzine HCl 50 Mg Tab 50 Mg PO HS PRN May repeat x 1 dose in 1hr if 1st dose ineffective Olanzapine 5 Mg Tab 5 Mg PO DAILY Kapvay ER 12 HR (Clonidine HCl) 0.1 Mg Tab 0.2 Mg PO BID Nodolor 325-65-100 mg (Isometheptene-Dichloralphenazo) 1 Cap Cap 2 Cap PO AT ONSET OF HEADACHE PRN Fludrocortisone (Fludrocortisone Acetate) 0.1 Mg Tab 0.1 Mg PO BID Zofran (Ondansetron HCl) 4 Mg Tab 4 Mg PO Q6HR PRN Omeprazole 40 Mg Cap 40 Mg PO BID Mobic (Meloxicam) 7.5 Mg Tab 7.5 Mg PO DAILY Lorazepam 2 Mg Tab 2 Mg PO Q6H PRN Gaviscon Extra Strength (Aluminum Hydroxide-Mag Carb) 160-105 mg Chew 2 Tab CHEW HS Maximum 16 tabs/24 hrs. Clonazepam 2 Mg Tab 2 Mg PO NOON Review of Systems Except as stated in HPI: all other systems reviewed are Neg Exam Alert: Yes [place]: Person, Place, Date, Situation Mood: Calm Affect: Restricted Speech: Clear, Logical Eye Contact: Normal Memory Intact: Comment (not formally tetsed) Hallucinations: Other (neagtive) Delusions: No Suicidal: Ideation (neagtive) Homicidal: Ideation (negative) [facility] Medical Decision Making Medical Record Reviewed: Yes Assessment/Plan At this time does not met BA criteria. These are behavioral issues that he has presented in numerous visits. Will lift BA and discharge Orders Complete Blood Count With Diff (02/18/17 20:14) Comprehensive Metabolic Panel (02/18/17 20:14) Psych Screen (02/18/17 20:14) Ammonia (02/18/17 20:14) Restraints Non-Violent CARMELITA.Q3H (02/19/17 07:31) Results Vital Signs Date Time Temp Pulse Resp B/P Pulse Ox O2 Delivery O2 Flow Rate FiO2 02/19/17 00:13 98.3 70 16 132/78 99 02/18/17 20:23 98.8 85 16 132/64 100 Laboratory Tests Test 02/18/17 02/18/17 21:10 22:35 White Blood Count 8.1 Red Blood Count 5.33 Hemoglobin 11.1 Hematocrit 39.3 Mean Corpuscular Volume 73.6 Mean Corpuscular Hemoglobin 20.8 Mean Corpuscular Hemoglobin 28.3 Concent Red Cell Distribution Width 19.8 Platelet Count 234 Mean Platelet Volume 7.0 Neutrophils (%) (Auto) 56.2 Lymphocytes (%) (Auto) 25.7 Monocytes (%) (Auto) 9.5 Eosinophils (%) (Auto) 8.2 Basophils (%) (Auto) 0.4 Neutrophils # (Auto) 4.5 Lymphocytes # (Auto) 2.1 Monocytes # (Auto) 0.8 Eosinophils # (Auto) 0.7 Basophils # (Auto) 0.0 CBC Comment DIFF FINAL Differential Comment Sodium Level 142 Potassium Level 3.7 Chloride Level 109 Carbon Dioxide Level 21.9 Anion Gap 11 Blood Urea Nitrogen 15 Creatinine 0.80 Estimat Glomerular Filtration 125 Rate Random Glucose 102 Calcium Level 8.7 Total Bilirubin 0.2 Aspartate Amino Transf 21 (AST/SGOT) Alanine Aminotransferase 39 (ALT/SGPT) Alkaline Phosphatase 106 Total Protein 7.0 Albumin 3.5 Ammonia 62 Diagnosis Primary Impression: Autism spectrum disorder Additional Impression: Adjustment disorder with disturbance of conduct Psychiatrically Cleared: Yes Med/ Other Pt Specific Info: No Change to Meds Disposition: 01 DISCHARGE HOME Condition: Stable Problem Qualifiers Stephanie Bonds Feb 19, 2017 10:36
[2017-02-19] MEDS ORDERED: LORazepam 1 MG TAB PO ONE (11:15)
[2017-03-16] MEDS ORDERED: QUET1TAB10 PO (16:06)
[2017-03-16] MEDS ORDERED: CLON1 PO (16:06)
[2017-03-16] MEDS ORDERED: [UNRECOGNIZED DRUG - CODE] PO ×2 (16:10→16:13)
[2017-03-16] MEDS ORDERED: LORA-475 PO (16:10)
== END 2017-02-19 12:24 | disposition home or self-care (01) ==
LOC: NEDAMB 19:51 → NEPE 02-19 12:24
DX: F84.0 Autistic disorder (principal); F43.24 Adjustment disorder with disturbance of conduct; F31.9 Bipolar disorder, unspecified
CPT/HCPCS: 80053; 82140; 85025; 99285

== ENCOUNTER 2017-02-19 14:00 | Emergency (ER) | payer BC, OTHER ==
[2017-02-19 14:00] VITALS: BP 141/91; PULSE 134; RESP 18; TEMP 99.3; O2SAT 98
--- NOTE | 2017-02-19 15:16 | PD.CONS ---
Provisional Diagnosis Admission Date [place]. Autism spectrum disorder F 84.0 History of Present Illness Service Psychiatry Consult Requested By EDMD Reason for Consult Fuentes act Primary Care Physician Unknown HPI Patient is a 21-year-old white male with diagnosed autism spectrum disorder who comes here under Fuentes act by the [place] [employer] dated 02/19/17 at 1300 hrs. that document reviewed. The document stating that subject was attempting to jump from moving vehicle. Subject was combative with primary prep person. Subject stated he would jump into traffic. Subject request I showed him with my patrol rifle. Patient is a long history of multiple visits to the ED with multiple Fuentes acts. Patient most recently seen here this morning under Fuentes act with visit [id number], was seen by Stephanie st our psychiatric nurse practitioner Adri the Fuentes act and ordered the patient to be returned to his domicile with his mother. Patient seen by me in the J pod patient is calm cooperative denies suicidality homicidality voices or visions states he wants to go to his mother. States she'll be compliant with his medications and listen to her. At the present time patient does not meet Fuentes criteria these are behavioral issues that need to be addressed through appropriate resources in the community. Thus I will lift the Fuentes act and allow patient to be discharged back to his family to continue his schedule medications at home to follow-up with their clinicians in the community Review of Systems ROS Limitations: Clinical Condition, Altered Mental Status Past Family Social History Coded Allergies: Ceftin (Verified Allergy, Severe, RASH, 02/18/17) Per Mom. Latex (Verified Allergy, Severe, itching, 02/18/17) TONGUE ITCHES Per Mom. Trileptal (Verified Allergy, Severe, NEURO TOXIC, 02/18/17) Per Mom. Past Medical History Autistic spectrum disorder Active Scripts Amoxicillin-Clavulanate (Augmentin)875-125 Mg Tab1 Tab PO BID 7 Days Ref 0 Prov:Alka Viera MD 02/11/17 Levothyroxine (Synthroid)75 Mcg Tab75 Mcg PO DAILY@0600 #30 TAB Prov:Luis Cruz MD 12/23/16 Gabapentin (Neurontin)400 Mg [id number] Mg PO TID #90 CAP Prov:Luis Cruz MD 12/23/16 Escitalopram 20 Mg Tab20 Mg PO DAILY #30 TAB Prov:Luis Cruz MD 12/23/16 Clonazepam (Klonopin)1 Mg Tab1 Mg PO BID #30 TAB Prov:Luis Cruz MD 12/23/16 Aripiprazole 15 Mg Tab15 Mg PO BID #30 TAB Prov:Luis Cruz MD 12/23/16 Lactulose Liq 10 Gm/15 Ml Soln30 Ml PO Q6H 10 Days Ref 0 Prov:Alka Viera MD 10/19/16 Reported Medications Cetirizine HCl (Zyrtec)10 Mg [id number] Mg PO DAILY PRN (ALLERGIES) 02/11/17 Cholecalciferol (Vitamin D3)2,000 Unit Cap4,000 Units PO DAILY #1 BOTTLE Ref 0 02/11/17 Topiramate (Topamax)25 Mg [id number] Mg PO BID #60 TAB Ref 0 02/03/17 Hydroxyzine HCl 50 Mg Tab50 Mg PO HS PRN (INSOMNIA) Ref 0 January repeat x 1 dose in 1hr if 1st dose ineffective 01/31/17 Olanzapine 5 Mg Tab5 Mg PO DAILY #60 TAB Ref 0 01/20/17 Clonidine ER 12 HR (Kapvay ER 12 HR)0.1 Mg Tab0.2 Mg PO BID #30 TAB Ref 0 01/20/17 Isometheptene-Dichloralphenazo (Nodolor 325-65-100 mg)1 Cap Cap2 Cap PO AT ONSET OF HEADACHE PRN (HEADACHE) 09/23/16 Fludrocortisone 0.1 Mg Tab0.1 Mg PO BID #30 TAB Ref 0 08/24/16 Ondansetron (Zofran)4 Mg Tab4 Mg PO Q6HR PRN (NAUSEA OR VOMITING) Ref 0 08/23/16 Omeprazole 40 Mg Cap40 Mg PO BID #30 CAP Ref 0 08/23/16 Meloxicam (Mobic)7.5 Mg Tab7.5 Mg PO DAILY Ref 0 08/23/16 Lorazepam 2 Mg Tab2 Mg PO Q6H PRN (ANXIETY) Ref 0 08/23/16 Aluminum Hydroxide-Mag Carb (Gaviscon Extra Strength)160-105 mg Chew2 Tab CHEW HS Maximum 16 tabs/24 hrs. 08/23/16 Clonazepam 2 Mg Tab2 Mg PO NOON #60 TAB Ref 0 08/23/16 Family History No significant history mental illness and family Social History Patient lives with mother Patient's Strengths (min. 2) Patient cooperative verbal label access healthcare has supportive family Physical Exam Patient seen screen in ED exam reviewed and agreed with Mental Status Examination Alert oriented tall obese white male standing calmly in [place] by his room on J pod. He is cooperative with poor eye contact Appearance Fairly clean and neat Speech: Hesitant, Slow, Tangential (mildly) Orientation: Person, Place Memory: Unremarkable (fair) Thought Process: Linear Thought Content: Unremarkable Language Poor Fund of Knowledge Poor Hallucination Type: None (denies) Attention and Concentration: Easily Distracted Suicidal Ideation: No Previous Suicide Attempts: No Homicidal Ideation: No Previous Homicide Attempts: No Insight: Poor Judgment: Poor Affect: Other (decreased range intensity) Mood: Other (restricted) Motor Activity: Normal gait Assessment & Plan Problem List: (1) Autism spectrum disorder ICD Code: F84.0 (2) Adjustment disorder with disturbance of conduct ICD Code: F43.24 Assessment & Plan Estimated LOS: days this time patient does not meet Fuentes criteria these are behavioral issues related to his autism, will lift Fuentes act, patient may continue his medications at home follow-up clinicians in the community Discharge Planning See above Request HC Surrog/Guard Advoc?: No Jose David Patel MD Feb 19, 2017 15:16
[2017-02-19] MEDS ORDERED: ZIPRASIDONE MESYLATE 20 MG VIAL IM PRN (17:15)
[2017-02-19] MEDS ORDERED: diphenhydrAMINE HCL 50 MG/ML VIAL IM ONE (17:15)
--- NOTE | 2017-02-19 17:46 | PD ---
HPI Chief Complaint: Psychiatric Symptoms Time Seen by Provider: 17:44 Travel History International Travel<30 days: No Contact w/Intl Traveler<30days: No Traveled to known affect area: No History of Present Illness HPI 21-year-old male presents to the emergency department under Fuentes act after being discharged yesterday for being Fuentes acted. When the patient was discharged apparently he made threats of jumping from the car and jumping into traffic. At this time the patient denies suicidal or homicidal ideation. Denies hallucinations, but visually or auditory. Denies alcohol or drug use. He has no medical complaints. PFSH Past Medical History ADHD: No Arthritis: Yes (JRA) Asthma: Yes Autoimmune Disease: Yes (decreased IGA, ?JRA, MEN1) Blood Disorders: No Bipolar Disorder: Yes Anxiety: No Depression: No Cardiovascular Problems: Yes (DISAUTONOMIA) Chemotherapy: No Chest Pain: No Congestive Heart Failure: No COPD: No Cerebrovascular Accident: No Developmental Delay: No Diminished Hearing: No Endocrine: Yes Gastrointestinal Disorders: Yes (WEIGHT LOSS, INTERMITTENT REFLUX) GERD: Yes Genitourinary: No Hepatitis: No Hiatal Hernia: No Heparin Induced Thrombocytopen: No Hypertension: No Immune Disorder: Yes (JRA) Implanted Vascular Access Dvce: Yes (PEG TUBE/INFUSA PORT) Musculoskeletal: Yes (MITOCHONDRIAL COMPLEX 1) Neurologic: Yes (AUTISTIC,SEIZURES) Psychiatric: Yes Reproductive: No Respiratory: Yes (IGA DEFICIENCY) Immunizations Current: Yes Migraines: Yes (DAILY ) Radiation Therapy: No Renal Failure: No Seizures: Yes ( ) Sickle Cell Disease: No Sleep Apnea: No Thyroid Disease: Yes Ulcer: No Past Surgical History Abdominal Surgery: Yes (G TUBE X2) AICD: No Body Medical Devices: peg tube Cardiac Surgery: No Ear Surgery: No Endocrine Surgery: No Eye Surgery: No Genitourinary Surgery: No Gynecologic Surgery: No Insulin Pump: No Joint Replacement: No Neurologic Surgery: No Oral Surgery: No Pacemaker: No Thoracic Surgery: No Tonsillectomy: Yes Tympanostomy Tube: Yes (X2) Other Surgery: Yes (RHINOPLASTY) Social History Alcohol Use: No Tobacco Use: No Substance Use: No Allergies-Medications (Allergen,Severity, Reaction): Coded Allergies: Ceftin (Verified Allergy, Severe, RASH, 02/18/17) Per Mom. Latex (Verified Allergy, Severe, itching, 02/18/17) TONGUE ITCHES Per Mom. Trileptal (Verified Allergy, Severe, NEURO TOXIC, 02/18/17) Per Mom. Reported Meds & Prescriptions Reported Meds & Active Scripts Active Augmentin (Amoxicillin-Clavulanate) 875-125 Mg Tab 1 Tab PO BID 7 Days Synthroid (Levothyroxine Sodium) 75 Mcg Tab 75 Mcg PO DAILY@0600 Neurontin (Gabapentin) 400 Mg Cap 800 Mg PO TID Escitalopram (Escitalopram Oxalate) 20 Mg Tab 20 Mg PO DAILY Klonopin (Clonazepam) 1 Mg Tab 1 Mg PO BID Aripiprazole 15 Mg Tab 15 Mg PO BID Lactulose Liq (Lactulose) 10 Gm/15 Ml Soln 30 Ml PO Q6H 10 Days Reported Zyrtec (Cetirizine HCl) 10 Mg Tablet 10 Mg PO DAILY PRN Vitamin D3 (Cholecalciferol) 2,000 Unit Cap 4,000 Units PO DAILY Topamax (Topiramate) 25 Mg Tab 100 Mg PO BID Hydroxyzine HCl 50 Mg Tab 50 Mg PO HS PRN May repeat x 1 dose in 1hr if 1st dose ineffective Olanzapine 5 Mg Tab 5 Mg PO DAILY Kapvay ER 12 HR (Clonidine HCl) 0.1 Mg Tab 0.2 Mg PO BID Nodolor 325-65-100 mg (Isometheptene-Dichloralphenazo) 1 Cap Cap 2 Cap PO AT ONSET OF HEADACHE PRN Fludrocortisone (Fludrocortisone Acetate) 0.1 Mg Tab 0.1 Mg PO BID Zofran (Ondansetron HCl) 4 Mg Tab 4 Mg PO Q6HR PRN Omeprazole 40 Mg Cap 40 Mg PO BID Mobic (Meloxicam) 7.5 Mg Tab 7.5 Mg PO DAILY Lorazepam 2 Mg Tab 2 Mg PO Q6H PRN Gaviscon Extra Strength (Aluminum Hydroxide-Mag Carb) 160-105 mg Chew 2 Tab CHEW HS Maximum 16 tabs/24 hrs. Clonazepam 2 Mg Tab 2 Mg PO NOON Review of Systems Except as stated in HPI: all other systems reviewed are Neg Physical Exam Narrative GENERAL: Well-nourished, well-developed occasion male patient, in no acute distress SKIN: Warm and dry. HEAD: Atraumatic. Normocephalic. EYES: Pupils equal and round. ENT: Mucosa pink and moist. NECK: Supple. Trachea midline. CARDIOVASCULAR: Regular rate and rhythm. No murmur appreciated. RESPIRATORY: No accessory muscle use. Clear to auscultation. Breath sounds equal bilaterally. GASTROINTESTINAL: Abdomen soft, non-tender, nondistended. Hepatic and splenic margins not palpable. Bowel sounds are active 4 quadrants. MUSCULOSKELETAL: No obvious deformities. No clubbing. No cyanosis. No edema. NEUROLOGICAL: Awake and alert. Oriented 3. No obvious cranial nerve deficits. Motor grossly within normal limits. Normal speech. Moves all extremities. 5/5 strength to all extremities. PSYCHIATRIC: No delusional thought processes. No hallucinations. Data Data Last Documented VS Vital Signs Date Time Temp Pulse Resp B/P Pulse Ox O2 Delivery O2 Flow Rate FiO2 02/19/17 14:00 99.3 134 18 141/91 98 Orders Diet Regular Basic (02/19/17 Dinner) Ziprasidone Inj (Geodon Inj) (02/19/17 17:15) Diphenhydramine Inj (Benadryl Inj) (02/19/17 17:15) MDM Medical Decision Making Medical Screen Exam Complete: Yes Emergency Medical Condition: Yes Medical Record Reviewed: Yes Differential Diagnosis Adult behavior problems, autistic disorder, impulse control disorder, suicidal ideation Narrative Course Patient presents under a Fuentes act. Physical examination and vital signs are essentially unremarkable. Patient has no medical complaints to report. Psych screen has been ordered. If the laboratory results are unremarkable, the patient will be medically cleared for psychiatric evaluation and disposition. Diagnosis Primary Impression: Medical clearance for psychiatric admission Additional Impression: Behavior problem, adult Patient Instructions: General Instructions Departure Forms: Tests/Procedures Additional Instructions: FOLLOW UP WITH YOUR CURRENT TREATMENT PROVIDERS Disposition: 01 DISCHARGE HOME Condition: Stable Marti Hollins Feb 19, 2017 17:45
[2017-03-16] MEDS ORDERED: CLON1 PO (16:06)
[2017-03-16] MEDS ORDERED: QUET1TAB10 PO (16:06)
[2017-03-16] MEDS ORDERED: [UNRECOGNIZED DRUG - CODE] PO ×2 (16:10→16:13)
[2017-03-16] MEDS ORDERED: LORA-475 PO (16:10)
== END 2017-02-19 17:58 | disposition home or self-care (01) ==
LOC: NEPJ 14:00
DX: F84.0 Autistic disorder (principal); F43.24 Adjustment disorder with disturbance of conduct; J45.909 Unspecified asthma, uncomplicated; M08.00 Unspecified juvenile rheumatoid arthritis of unspecified site
CPT/HCPCS: 96372; 99284; J1200; J3486

== ENCOUNTER 2017-02-21 11:38 | Emergency (ER) | payer BC, OTHER ==
[~2017-02-21] VITALS: Ht 193 cm; Wt 115.0 kg
[2017-02-21 13:11] VITALS: BP 126/74; PULSE 106; RESP 18; TEMP 97.8; O2SAT 99
--- NOTE | 2017-02-21 13:17 | PD ---
HPI Chief Complaint: Psychiatric Symptoms Time Seen by Provider: 13:16 Travel History International Travel<30 days: No Contact w/Intl Traveler<30days: No History of Present Illness HPI 21-year-old male with a history of autism and bipolar disorder is brought to the emergency department under Fuentes act for psychiatric evaluation. 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 The patient denies any suicidal or homicidal ideations. He complains of some pain in the bottom of his right foot which is been going on for several weeks, states that he had something drained from it previously. He denies any alcohol or drug use. Denies any other complaints. PFSH Past Medical History ADHD: No Arthritis: Yes (JRA) Asthma: Yes Autoimmune Disease: Yes (decreased IGA, ?JRA, MEN1) Blood Disorders: No Bipolar Disorder: Yes Anxiety: No Depression: No Cardiovascular Problems: Yes (DISAUTONOMIA) Chemotherapy: No Chest Pain: No Congestive Heart Failure: No COPD: No Cerebrovascular Accident: No Developmental Delay: No Diminished Hearing: No Endocrine: Yes Gastrointestinal Disorders: Yes (WEIGHT LOSS, INTERMITTENT REFLUX) GERD: Yes Genitourinary: No Hepatitis: No Hiatal Hernia: No Heparin Induced Thrombocytopen: No Hypertension: No Immune Disorder: Yes (JRA) Implanted Vascular Access Dvce: Yes (PEG TUBE/INFUSA PORT) Musculoskeletal: Yes (MITOCHONDRIAL COMPLEX 1) Neurologic: Yes (AUTISTIC,SEIZURES) Psychiatric: Yes Reproductive: No Respiratory: Yes (IGA DEFICIENCY) Immunizations Current: Yes Migraines: Yes (DAILY ) Radiation Therapy: No Renal Failure: No Seizures: Yes ( ) Sickle Cell Disease: No Sleep Apnea: No Thyroid Disease: Yes Ulcer: No Past Surgical History Abdominal Surgery: Yes (G TUBE X2) AICD: No Body Medical Devices: peg tube Cardiac Surgery: No Ear Surgery: No Endocrine Surgery: No Eye Surgery: No Genitourinary Surgery: No Gynecologic Surgery: No Insulin Pump: No Joint Replacement: No Neurologic Surgery: No Oral Surgery: No Pacemaker: No Thoracic Surgery: No Tonsillectomy: Yes Tympanostomy Tube: Yes (X2) Other Surgery: Yes (RHINOPLASTY) Social History Alcohol Use: No Tobacco Use: No Substance Use: No Allergies-Medications (Allergen,Severity, Reaction): Coded Allergies: Ceftin (Verified Allergy, Severe, RASH, 02/18/17) Per Mom. Latex (Verified Allergy, Severe, itching, 02/18/17) TONGUE ITCHES Per Mom. Trileptal (Verified Allergy, Severe, NEURO TOXIC, 02/18/17) Per Mom. Reported Meds & Prescriptions Reported Meds & Active Scripts Active Augmentin (Amoxicillin-Clavulanate) 875-125 Mg Tab 1 Tab PO BID 7 Days Synthroid (Levothyroxine Sodium) 75 Mcg Tab 75 Mcg PO DAILY@0600 Neurontin (Gabapentin) 400 Mg Cap 800 Mg PO TID Escitalopram (Escitalopram Oxalate) 20 Mg Tab 20 Mg PO DAILY Klonopin (Clonazepam) 1 Mg Tab 1 Mg PO BID Aripiprazole 15 Mg Tab 15 Mg PO BID Lactulose Liq (Lactulose) 10 Gm/15 Ml Soln 30 Ml PO Q6H 10 Days Reported Zyrtec (Cetirizine HCl) 10 Mg Tablet 10 Mg PO DAILY PRN Vitamin D3 (Cholecalciferol) 2,000 Unit Cap 4,000 Units PO DAILY Topamax (Topiramate) 25 Mg Tab 100 Mg PO BID Hydroxyzine HCl 50 Mg Tab 50 Mg PO HS PRN May repeat x 1 dose in 1hr if 1st dose ineffective Olanzapine 5 Mg Tab 5 Mg PO DAILY Kapvay ER 12 HR (Clonidine HCl) 0.1 Mg Tab 0.2 Mg PO BID Nodolor 325-65-100 mg (Isometheptene-Dichloralphenazo) 1 Cap Cap 2 Cap PO AT ONSET OF HEADACHE PRN Fludrocortisone (Fludrocortisone Acetate) 0.1 Mg Tab 0.1 Mg PO BID Zofran (Ondansetron HCl) 4 Mg Tab 4 Mg PO Q6HR PRN Omeprazole 40 Mg Cap 40 Mg PO BID Mobic (Meloxicam) 7.5 Mg Tab 7.5 Mg PO DAILY Lorazepam 2 Mg Tab 2 Mg PO Q6H PRN Gaviscon Extra Strength (Aluminum Hydroxide-Mag Carb) 160-105 mg Chew 2 Tab CHEW HS Maximum 16 tabs/24 hrs. Clonazepam 2 Mg Tab 2 Mg PO NOON Review of Systems Except as stated in HPI: all other systems reviewed are Neg Physical Exam Narrative GENERAL: Well-nourished and well-developed male patient in no acute distress who is nontoxic appearing. SKIN: Warm and dry. Pinpoint healing wound to bottom of right foot, no erythema , warmth, discharge, drainage, tenderness. HEAD: Normocephalic and atraumatic. EYES: No injection, drainage, or hyphema noted. PERRLA. EOMI. ENT: No nasal drainage noted. Oropharynx is clear. NECK: Supple and the trachea is midline. CARDIOVASCULAR: Regular rate and rhythm. RESPIRATORY: Breath sounds are equal bilaterally with no accessory muscle use, wheezing, rhonchi, or crackles. GASTROINTESTINAL: Abdomen is soft, non-tender, and nondistended. MUSCULOSKELETAL: No obvious deformities, swelling, cyanosis, or ecchymosis is present throughout the upper and lower extremities. Patient has full range of motion without any signs of neurovascular compromise. NEUROLOGICAL: Awake, alert, and oriented. Normal speech and gait. Cranial nerves are grossly intact. Data Data Last Documented VS Vital Signs Date Time Temp Pulse Resp B/P Pulse Ox O2 Delivery O2 Flow Rate FiO2 02/21/17 13:11 97.8 106 18 126/74 99 Room Air Orders Psych Screen (02/21/17 11:51) MDM Medical Decision Making Medical Screen Exam Complete: Yes Emergency Medical Condition: Yes Differential Diagnosis Differential: Depression versus adjustment reaction versus anxiety versus PTSD versus psychosis NOS versus mood disorder NOS versus substance induced mood disorder versus ODD versus adjustment reaction versus schizophrenia versus bipolar disorder versus schizoaffective versus electrolyte abnormality versus dementia versus malingering. Narrative Course Patient presents under a Fuentes act. Physical examination and vital signs are essentially unremarkable. Patient was seen here twice over the past 3 days under Fuentes act. He had lab work 3 days ago that was unremarkable for any acute abnormalities. He has no acute medical complaints today and therefore does not require any new lab work. Psych screen has been ordered. The patient is medically cleared for psychiatric evaluation and disposition. Diagnosis Primary Impression: Autism spectrum disorder Marti Preston Feb 21, 2017 13:17
[2017-02-21] MEDS ORDERED: ZIPRASIDONE MESYLATE 20 MG VIAL IM PRN (17:15)
[2017-02-21] MEDS ORDERED: diphenhydrAMINE HCL 50 MG CAP PO ONE (17:15)
--- NOTE | 2017-02-21 18:40 | PD ---
History of Present Illness Chief Complaint: Psychiatric Symptoms Time Seen by Provider: 16:45 Travel History International Travel<30 Days: No Contact w/Intl Traveler<30days: No Legal Status Legal Status: Fuentes Act Fuentes Act Signed By: Stacy Montemayor History of Present Illness: History of Present Illness HPI 21-year-old male with a history of autism spectrum disorder and bipolar disorder is brought to the emergency department under Fuentes act initiated by FAUSTO. 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 He did not harm himself or anyone else. He is known to us at [facility] and has been here 3 times this month. He presents behaviors such as threatening to shoot himself with his father's gun or threatening to walk into traffic and finds himself under a BA. He does not present any psychosis or johnny and his behaviors appear to be manipulative in nature. This afternoon he is awake, alert, calm and subdued. He refused to communicate with the benefits/ patient registration but was conversing appropriate with other parietes. he tells me that he is not suicidal and that he wants to be discharged from [facility] because he has an appointment tomorrow to have his foot checked out. PFSH Past Medical History ADHD: No Arthritis: Yes (JRA) Asthma: Yes Autoimmune Disease: Yes (decreased IGA, ?JRA, MEN1) Blood Disorders: No Bipolar Disorder: Yes Weight (Kg): 3 Anxiety: No Depression: No Cardiovascular Problems: Yes (DISAUTONOMIA) Chemotherapy: No Chest Pain: No Congestive Heart Failure: No COPD: No Cerebrovascular Accident: No Developmental Delay: Yes Diminished Hearing: No Endocrine: Yes Gastrointestinal Disorders: Yes ( INTERMITTENT REFLUX) GERD: Yes Genitourinary: No Hepatitis: No Hiatal Hernia: No Heparin Induced Thrombocytopen: No Hypertension: No Immune Disorder: Yes (JRA) Implanted Vascular Access Dvce: Yes (PEG TUBE/INFUSA PORT) Medical other: Yes (MITROCHONDRIAL COMPLEX 1, , SPASTIC PARAPALEGIC, DYSAUTOMONY, MEN 1) Musculoskeletal: Yes (MITOCHONDRIAL COMPLEX 1) Neurologic: Yes (AUTISTIC,SEIZURES) Psychiatric: Yes Reproductive: No Respiratory: Yes (IGA DEFICIENCY) Immunizations Current: Yes Migraines: Yes Radiation Therapy: No Renal Failure: No Seizures: Yes ( ) Sickle Cell Disease: No Sleep Apnea: No Thyroid Disease: Yes Ulcer: No Past Surgical History Abdominal Surgery: Yes (G TUBE X2) AICD: No Body Medical Devices: peg tube Cardiac Surgery: No Ear Surgery: No Endocrine Surgery: No Eye Surgery: No Genitourinary Surgery: No Gynecologic Surgery: No Insulin Pump: No Joint Replacement: No Neurologic Surgery: No Oral Surgery: No Pacemaker: No Thoracic Surgery: No Tonsillectomy: Yes Tympanostomy Tube: Yes (X2) Other Surgery: Yes (RHINOPLASTY) Psychiatric History Psychiatric History Hx Psychiatric Treatment: patient has extensive psych history, including previous admission to [facility] and [facility]. DIAGNOSED WITH AUTISM. LAST ADMISSION HERE WAS December TO December History of Inpatient Treatment: Yes Guns or firearms in home: Yes Social History Single male.Lives with his parents Hx Alcohol Use: No Hx Tobacco Use: No Hx Substance Use: No Hx of Substance Use Treatment: No Family Psychiatric History Negative Allergies-Medications (Allergen,Severity, Reaction): Coded Allergies: Ceftin (Verified Allergy, Severe, RASH, 02/18/17) Per Mom. Latex (Verified Allergy, Severe, itching, 02/18/17) TONGUE ITCHES Per Mom. Trileptal (Verified Allergy, Severe, NEURO TOXIC, 02/18/17) Per Mom. Reported Meds & Prescriptions Reported Meds & Active Scripts Active Augmentin (Amoxicillin-Clavulanate) 875-125 Mg Tab 1 Tab PO BID 7 Days Synthroid (Levothyroxine Sodium) 75 Mcg Tab 75 Mcg PO DAILY@0600 Neurontin (Gabapentin) 400 Mg Cap 800 Mg PO TID Escitalopram (Escitalopram Oxalate) 20 Mg Tab 20 Mg PO DAILY Klonopin (Clonazepam) 1 Mg Tab 1 Mg PO BID Aripiprazole 15 Mg Tab 15 Mg PO BID Lactulose Liq (Lactulose) 10 Gm/15 Ml Soln 30 Ml PO Q6H 10 Days Reported Zyrtec (Cetirizine HCl) 10 Mg Tablet 10 Mg PO DAILY PRN Vitamin D3 (Cholecalciferol) 2,000 Unit Cap 4,000 Units PO DAILY Topamax (Topiramate) 25 Mg Tab 100 Mg PO BID Hydroxyzine HCl 50 Mg Tab 50 Mg PO HS PRN May repeat x 1 dose in 1hr if 1st dose ineffective Olanzapine 5 Mg Tab 5 Mg PO DAILY Kapvay ER 12 HR (Clonidine HCl) 0.1 Mg Tab 0.2 Mg PO BID Nodolor 325-65-100 mg (Isometheptene-Dichloralphenazo) 1 Cap Cap 2 Cap PO AT ONSET OF HEADACHE PRN Fludrocortisone (Fludrocortisone Acetate) 0.1 Mg Tab 0.1 Mg PO BID Zofran (Ondansetron HCl) 4 Mg Tab 4 Mg PO Q6HR PRN Omeprazole 40 Mg Cap 40 Mg PO BID Mobic (Meloxicam) 7.5 Mg Tab 7.5 Mg PO DAILY Lorazepam 2 Mg Tab 2 Mg PO Q6H PRN Gaviscon Extra Strength (Aluminum Hydroxide-Mag Carb) 160-105 mg Chew 2 Tab CHEW HS Maximum 16 tabs/24 hrs. Clonazepam 2 Mg Tab 2 Mg PO NOON Review of Systems Except as stated in HPI: all other systems reviewed are Neg Exam Alert: Yes [place]: Person (ox3) Mood: Calm Affect: Appropriate Speech: Clear Eye Contact: Normal Memory Intact: Comment (not formally tetsted) Hallucinations: Other (negative) Delusions: No Suicidal: Ideation (Negative) Homicidal: Ideation (Negative) Insight/Judgement Poor. Poor MDM Medical Decision Making Medical Record Reviewed: Yes Assessment/Plan 21 year old male with autism spectrum disorder under a BA for having threatened his revenue analyst with a box maker. patietn did not harm anyone . Patient at this time is calm and is actually requesting discharge as he wants to be able to go to his doctor's appointment tomorrow. At this time he does not meet BA criteria as this is behavioral. Orders Psych Screen (02/21/17 11:51) Ziprasidone Inj (Geodon Inj) (02/21/17 17:15) Diphenhydramine (Benadryl) (02/21/17 17:15) Results Vital Signs Date Time Temp Pulse Resp B/P Pulse Ox O2 Delivery O2 Flow Rate FiO2 02/21/17 13:11 97.8 106 18 126/74 99 Room Air Diagnosis Primary Impression: Autism spectrum disorder Additional Impression: Behavior problem, adult Psychiatrically Cleared: Yes Departure Forms: Tests/Procedures Patient Instructions: General Instructions Additional Instructions: FOLLOW UP WITH YOUR CURRENT TREATMENT PROVIDERS Med/ Other Pt Specific Info: No Meds Exist/No RX given Disposition: 01 DISCHARGE HOME Condition: Stable Problem Qualifiers Stephanie Bonds Feb 21, 2017 18:40
[2017-03-16] MEDS ORDERED: CLON1 PO (16:06)
[2017-03-16] MEDS ORDERED: QUET1TAB10 PO (16:06)
[2017-03-16] MEDS ORDERED: [UNRECOGNIZED DRUG - CODE] PO ×2 (16:10→16:13)
[2017-03-16] MEDS ORDERED: LORA-475 PO (16:10)
== END 2017-02-21 18:19 | disposition home or self-care (01) ==
LOC: NEPJ 11:38
DX: F84.0 Autistic disorder (principal)
CPT/HCPCS: 96372; 99284; J3486; Q0163

== ENCOUNTER 2017-02-22 19:12 | Emergency (ER) | payer BC, OTHER ==
[~2017-02-22] VITALS: Ht 193 cm; Wt 113.0 kg
[2017-02-22 19:21] VITALS: BP 140/90; PULSE 117; RESP 17; TEMP 98.3; O2SAT 99
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
[2017-02-22] MEDS ORDERED: AMMONIA AROMATIC INHALANT 0.33 ML NASAL ONE (20:00)
[2017-02-22] MEDS ORDERED: OLANZapine ODT 5 MG TAB PO ONE (20:45)
[2017-02-22] MEDS ORDERED: diphenhydrAMINE HCL 50 MG/ML VIAL IM ONE (23:30)
[2017-02-22] MEDS ORDERED: diphenhydrAMINE HCL 50 MG CAP PO ONE (23:45)
[2017-02-23] MEDS ORDERED: LORazepam 2 MG/ML VIAL ONE (02:46)
[2017-02-23] MEDS ORDERED: diphenhydrAMINE HCL 50 MG/ML VIAL ONE (02:46)
[2017-02-23] MEDS ORDERED: HALOPERIDOL LACTATE 5 MG/ML AMP ONE (02:47)
[2017-02-23 02:55] VITALS: BP 137/73; PULSE 76; RESP 18; O2SAT 97
[2017-02-23 05:41] VITALS: RESP 18
--- NOTE | 2017-02-23 10:17 | PD ---
HPI Chief Complaint: Psychiatric Symptoms Time Seen by Provider: 10:15 Travel History International Travel<30 days: No Contact w/Intl Traveler<30days: No Traveled to known affect area: No History of Present Illness HPI I was called by the nurse taking care of this patient to come and evaluate the patient. Apparently the patient was being held by a tech earlier this morning when the patient was being uncooperative and misbehaving and the tach lost his footing and fell backwards with the patient. The nurse was told that the patient did not hit his head and had no loss of consciousness. The patient has been ambulatory in the emergency department psychiatric unit according to the nurse. He has had no change in behavior although he has calmed down and is being cooperative at this time. I evaluated the patient and at this time the patient is complaining of left shoulder pain and left ankle pain. Upon my arrival the patient is ambulatory with a normal gait. The patient says he did hit the left side of his head on the side of the bed. Denies loss of consciousness. PFSH Past Medical History ADHD: No Arthritis: Yes (JRA) Asthma: Yes Autoimmune Disease: Yes (decreased IGA, ?JRA, MEN1) Blood Disorders: No Bipolar Disorder: Yes Weight (Kg): 3 Anxiety: No Depression: No Cardiovascular Problems: Yes (DISAUTONOMIA) Chemotherapy: No Chest Pain: No Congestive Heart Failure: No COPD: No Cerebrovascular Accident: No Developmental Delay: Yes Diminished Hearing: No Endocrine: Yes Gastrointestinal Disorders: Yes ( INTERMITTENT REFLUX) GERD: Yes Genitourinary: No Hepatitis: No Hiatal Hernia: No Heparin Induced Thrombocytopen: No Hypertension: No Immune Disorder: Yes (JRA) Implanted Vascular Access Dvce: Yes (PEG TUBE/INFUSA PORT) Medical other: Yes (MITROCHONDRIAL COMPLEX 1, , SPASTIC PARAPALEGIC, DYSAUTOMONY, MEN 1) Musculoskeletal: Yes (MITOCHONDRIAL COMPLEX 1) Neurologic: Yes (AUTISTIC,SEIZURES) Psychiatric: Yes Reproductive: No Respiratory: Yes (IGA DEFICIENCY) Immunizations Current: Yes Migraines: Yes Radiation Therapy: No Renal Failure: No Seizures: Yes ( ) Sickle Cell Disease: No Sleep Apnea: No Thyroid Disease: Yes Ulcer: No Past Surgical History Abdominal Surgery: Yes (G TUBE X2) AICD: No Body Medical Devices: peg tube Cardiac Surgery: No Ear Surgery: No Endocrine Surgery: No Eye Surgery: No Genitourinary Surgery: No Gynecologic Surgery: No Insulin Pump: No Joint Replacement: No Neurologic Surgery: No Oral Surgery: No Pacemaker: No Thoracic Surgery: No Tonsillectomy: Yes Tympanostomy Tube: Yes (X2) Other Surgery: Yes (RHINOPLASTY) Social History Alcohol Use: No Tobacco Use: No Substance Use: No Allergies-Medications (Allergen,Severity, Reaction): Coded Allergies: Ceftin (Verified Allergy, Severe, RASH, 02/22/17) Per Mom. Latex (Verified Allergy, Severe, itching, 02/22/17) TONGUE ITCHES Per Mom. Trileptal (Verified Allergy, Severe, NEURO TOXIC, 02/22/17) Per Mom. Reported Meds & Prescriptions Reported Meds & Active Scripts Active Augmentin (Amoxicillin-Clavulanate) 875-125 Mg Tab 1 Tab PO BID 7 Days Synthroid (Levothyroxine Sodium) 75 Mcg Tab 75 Mcg PO DAILY@0600 Neurontin (Gabapentin) 400 Mg Cap 800 Mg PO TID Escitalopram (Escitalopram Oxalate) 20 Mg Tab 20 Mg PO DAILY Klonopin (Clonazepam) 1 Mg Tab 1 Mg PO BID Aripiprazole 15 Mg Tab 15 Mg PO BID Lactulose Liq (Lactulose) 10 Gm/15 Ml Soln 30 Ml PO Q6H 10 Days Reported Zyrtec (Cetirizine HCl) 10 Mg Tablet 10 Mg PO DAILY PRN Vitamin D3 (Cholecalciferol) 2,000 Unit Cap 4,000 Units PO DAILY Topamax (Topiramate) 25 Mg Tab 100 Mg PO BID Hydroxyzine HCl 50 Mg Tab 50 Mg PO HS PRN May repeat x 1 dose in 1hr if 1st dose ineffective Olanzapine 5 Mg Tab 5 Mg PO DAILY Kapvay ER 12 HR (Clonidine HCl) 0.1 Mg Tab 0.2 Mg PO BID Nodolor 325-65-100 mg (Isometheptene-Dichloralphenazo) 1 Cap Cap 2 Cap PO AT ONSET OF HEADACHE PRN Fludrocortisone (Fludrocortisone Acetate) 0.1 Mg Tab 0.1 Mg PO BID Zofran (Ondansetron HCl) 4 Mg Tab 4 Mg PO Q6HR PRN Omeprazole 40 Mg Cap 40 Mg PO BID Mobic (Meloxicam) 7.5 Mg Tab 7.5 Mg PO DAILY Lorazepam 2 Mg Tab 2 Mg PO Q6H PRN Gaviscon Extra Strength (Aluminum Hydroxide-Mag Carb) 160-105 mg Chew 2 Tab CHEW HS Maximum 16 tabs/24 hrs. Clonazepam 2 Mg Tab 2 Mg PO NOON Review of Systems Except as stated in HPI: all other systems reviewed are Neg Physical Exam Narrative GENERAL: Well-nourished, well-developed male patient, in no acute distress SKIN: Warm and dry. HEAD: Atraumatic. Normocephalic. No lacerations, contusions, abrasions noted on palpation. No facial droop noted. Tongue midline. EYES: Pupils equal and round at 4 mm with brisk reaction. No scleral icterus. No injection or drainage. PERRLA. EOMI. ENT: Mucosa pink and moist. Airway patent. NECK: Moving freely. Active rotation greater than 45 to the left and right. No midline point tenderness on palpation of the cervical spine. No obvious deformities. Trachea midline. No lymphadenopathy. CARDIOVASCULAR: Regular rate and rhythm. No murmur appreciated. RESPIRATORY: No accessory muscle use. Clear to auscultation. Breath sounds equal bilaterally. GASTROINTESTINAL: Abdomen soft, non-tender, nondistended. Hepatic and splenic margins not palpable. Bowel sounds are active 4 quadrants. MUSCULOSKELETAL: Left shoulder is without erythema, edema, ecchymosis; with full range of motion and greater than 45 abduction; no obvious deformity; shoulders equal; joint stable. Left ankle with superficial skin abrasion noted to the lateral aspect; ankle is without erythema, edema, ecchymosis; with full range of motion; no point tenderness on palpation; no obvious deformity. No obvious deformities. No clubbing. No cyanosis. No edema. NEUROLOGICAL: Awake and alert. Oriented. No obvious cranial nerve deficits. Motor grossly within normal limits. Normal speech. No ataxia. No mid-line drift. Moves all extremities. 5/5 strength to all extremities. Data Data Last Documented VS Vital Signs Date Time Temp Pulse Resp B/P Pulse Ox O2 Delivery O2 Flow Rate FiO2 02/23/17 10:44 115 22 138/72 99 Room Air 02/22/17 19:21 98.3 Orders Psych Screen (02/22/17 19:38) Ammonia Aromatic Inhalant (Aromatic Ammo (02/22/17 20:00) Olanzapine Odt (Zyprexa Zydis Odt) (02/22/17 20:45) Diet Regular Basic (02/23/17 Breakfast) Diphenhydramine Inj (Benadryl Inj) (02/22/17 23:30) Diphenhydramine (Benadryl) (02/22/17 23:45) Lorazepam Inj (Ativan Inj) (02/23/17 02:46) Diphenhydramine Inj (Benadryl Inj) (02/23/17 02:46) Haloperidol Inj (Haldol Inj) (02/23/17 02:47) Diet Regular Basic (02/23/17 Lunch) Acetaminophen (Tylenol) (02/23/17 10:30) Ziprasidone Inj (Geodon Inj) (02/23/17 10:45) Diphenhydramine Inj (Benadryl Inj) (02/23/17 10:45) Diet Regular Basic (02/23/17 Dinner) ^ Other Nursing Orders (02/23/17 14:09) Restraints Violent (02/23/17 10:35) Aripiprazole (Abilify) (02/23/17 21:00) Escitalopram (Lexapro) (02/23/17 15:15) Fludrocortisone (Florinef) (02/23/17 21:00) Gabapentin (Neurontin) (02/23/17 18:00) Topiramate (Topamax) (02/23/17 21:00) MDM Medical Decision Making Medical Screen Exam Complete: Yes Emergency Medical Condition: Yes Medical Record Reviewed: Yes Differential Diagnosis Fall, ankle contusion, shoulder contusion Narrative Course 21-year-old male that had a mechanical fall while in the psychiatric unit. It is reported that he did not hit his head or lose consciousness, although the patient states he did hit his head. No trauma noted to the scalp. The patient has been acting himself per the nurse. He has not vomited. Neuro exam is unremarkable. Patient is complaining of left ankle and left shoulder pain. I do not suspect fracture or dislocation of either the ankle or shoulder until imaging is not necessary at this time. The patient is ambulatory in the psychiatric unit with a normal gait upon my arrival for evaluation. Tylenol ordered. Diagnosis Primary Impression: Behavior problem, adult Additional Impressions: Abrasion of left ankle Qualified Code: S90.512A - Abrasion of left ankle, initial encounter Contusion of left shoulder Qualified Code: S40.012A - Contusion of left shoulder, initial encounter Marti Hollins Feb 23, 2017 10:17
[2017-02-23] MEDS ORDERED: ACETAMINOPHEN 325 MG TAB PO ONE (10:30)
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
[2017-02-23 10:44] VITALS: BP 138/72; PULSE 115; RESP 22; O2SAT 99
[2017-02-23] MEDS ORDERED: diphenhydrAMINE HCL 50 MG/ML VIAL IM ONE ×2 (10:45→21:30)
[2017-02-23] MEDS ORDERED: ZIPRASIDONE MESYLATE 20 MG VIAL IM ONE (10:45)
[2017-02-23 15:44] VITALS: BP 140/63; PULSE 83; RESP 18; O2SAT 100
[2017-02-23 18:23] VITALS: BP 109/59; PULSE 70; RESP 18; O2SAT 100
[2017-02-23] MEDS: GABAPENTIN 400 MG CAP PO SCH (18:26)
[2017-02-23] MEDS: ESCITALOPRAM OXALATE 20 MG TAB PO SCH (18:26)
[2017-02-23] MEDS: ARIPiprazole 15 MG TAB PO SCH (21:00)
[2017-02-23] MEDS: FLUDROCORTISONE ACETATE 0.1 MG TAB PO SCH (21:00)
[2017-02-23] MEDS: TOPIRAMATE 100 MG TAB PO SCH (21:00)
[2017-02-23] MEDS ORDERED: LORazepam 2 MG/ML VIAL IM ONE (21:30)
[2017-02-23] MEDS ORDERED: HALOPERIDOL LACTATE 5 MG/ML AMP IM ONE (21:30)
[2017-02-23 22:15] VITALS: BP 149/89; PULSE 84; RESP 19; TEMP 98.2; O2SAT 97
[2017-02-24] VITALS (8 sets, daily range): BP systolic 132–150; BP diastolic 72–91; PULSE 63–117; RESP 16–18; TEMP 96.8–98.8; O2SAT 96–100
[2017-02-24] MEDS ORDERED: diphenhydrAMINE HCL 50 MG/ML VIAL IM ONE (09:15)
[2017-02-24] MEDS ORDERED: ZIPRASIDONE MESYLATE 20 MG VIAL IM PRN (09:15)
[2017-02-24] MEDS: FLUDROCORTISONE ACETATE 0.1 MG TAB PO SCH ×2 (09:50→21:36)
[2017-02-24] MEDS: ARIPiprazole 15 MG TAB PO SCH ×2 (09:50→21:36)
[2017-02-24] MEDS: ESCITALOPRAM OXALATE 20 MG TAB PO SCH (09:50)
[2017-02-24] MEDS: GABAPENTIN 400 MG CAP PO SCH ×4 (09:50→17:57)
[2017-02-24] MEDS: TOPIRAMATE 100 MG TAB PO SCH ×2 (09:50→21:37)
[2017-02-24] MEDS: clonazePAM 1 MG TAB PO SCH ×2 (11:02→21:36)
[2017-02-24] MEDS: QUEtiapine FUMARATE 300 MG TAB PO SCH ×2 (11:02→21:36)
--- NOTE | 2017-02-24 14:06 | PD ---
History of Present Illness Chief Complaint: Psychiatric Symptoms Time Seen by Provider: 14:00 Travel History International Travel<30 Days: No Contact w/Intl Traveler<30days: No Known affected area: No Legal Status Legal Status: Gina Act Fuentes Act Signed By: Noah Fuentes Act Comment: BA signed by: ANDREWS SANTOS Badge#[id number], Case#[id number] History of Present Illness: 21-year-old male well known to this physician and staff. Has been here multiple times with difficult and explosive behavior. Significant autism and cognitive limitations. Patient has required injectable medicines and restraints to keep him from harming himself. This physician is willing to treat him on an outpatient basis and started by changing his medications today. Mother coming to pick him up but patient is currently calm and cooperative. No suicidal or homicidal ideation. No psychosis. Cognition is baseline. PFSH Past Medical History ADHD: No Arthritis: Yes (JRA) Asthma: Yes Autoimmune Disease: Yes (decreased IGA, ?JRA, MEN1) Blood Disorders: No Bipolar Disorder: Yes Weight (Kg): 3 Anxiety: No Depression: No Cardiovascular Problems: Yes (DISAUTONOMIA) Chemotherapy: No Chest Pain: No Congestive Heart Failure: No COPD: No Cerebrovascular Accident: No Developmental Delay: Yes Diminished Hearing: No Endocrine: Yes Gastrointestinal Disorders: Yes ( INTERMITTENT REFLUX) GERD: Yes Genitourinary: No Hepatitis: No Hiatal Hernia: No Heparin Induced Thrombocytopen: No Hypertension: No Immune Disorder: Yes (JRA) Implanted Vascular Access Dvce: Yes (PEG TUBE/INFUSA PORT) Medical other: Yes (MITROCHONDRIAL COMPLEX 1, , SPASTIC PARAPALEGIC, DYSAUTOMONY, MEN 1) Musculoskeletal: Yes (MITOCHONDRIAL COMPLEX 1) Neurologic: Yes (AUTISTIC,SEIZURES) Psychiatric: Yes Reproductive: No Respiratory: Yes (IGA DEFICIENCY) Immunizations Current: Yes Migraines: Yes Radiation Therapy: No Renal Failure: No Seizures: Yes ( ) Sickle Cell Disease: No Sleep Apnea: No Thyroid Disease: Yes Ulcer: No Past Surgical History Abdominal Surgery: Yes (G TUBE X2) AICD: No Body Medical Devices: peg tube Cardiac Surgery: No Ear Surgery: No Endocrine Surgery: No Eye Surgery: No Genitourinary Surgery: No Gynecologic Surgery: No Insulin Pump: No Joint Replacement: No Neurologic Surgery: No Oral Surgery: No Pacemaker: No Thoracic Surgery: No Tonsillectomy: Yes Tympanostomy Tube: Yes (X2) Other Surgery: Yes (RHINOPLASTY) Psychiatric History Psychiatric History Hx Psychiatric Treatment: patient has extensive psych history, including previous admission to [facility] and [facility]. DIAGNOSED WITH AUTISM. LAST ADMISSION HERE WAS December TO December History of Inpatient Treatment: Yes Social History Hx Alcohol Use: No Hx Tobacco Use: No Hx Substance Use: No Hx of Substance Use Treatment: No Allergies-Medications (Allergen,Severity, Reaction): Coded Allergies: Ceftin (Verified Allergy, Severe, RASH, 02/22/17) Per Mom. Latex (Verified Allergy, Severe, itching, 02/22/17) TONGUE ITCHES Per Mom. Trileptal (Verified Allergy, Severe, NEURO TOXIC, 02/22/17) Per Mom. Reported Meds & Prescriptions Reported Meds & Active Scripts Active Augmentin (Amoxicillin-Clavulanate) 875-125 Mg Tab 1 Tab PO BID 7 Days Synthroid (Levothyroxine Sodium) 75 Mcg Tab 75 Mcg PO DAILY@0600 Aripiprazole 15 Mg Tab 15 Mg PO BID Lactulose Liq (Lactulose) 10 Gm/15 Ml Soln 30 Ml PO Q6H 10 Days Reported Zyrtec (Cetirizine HCl) 10 Mg Tablet 10 Mg PO DAILY PRN Vitamin D3 (Cholecalciferol) 2,000 Unit Cap 4,000 Units PO DAILY Topamax (Topiramate) 25 Mg Tab 100 Mg PO BID Hydroxyzine HCl 50 Mg Tab 50 Mg PO HS PRN May repeat x 1 dose in 1hr if 1st dose ineffective Kapvay ER 12 HR (Clonidine HCl) 0.1 Mg Tab 0.2 Mg PO BID Nodolor 325-65-100 mg (Isometheptene-Dichloralphenazo) 1 Cap Cap 2 Cap PO AT ONSET OF HEADACHE PRN Fludrocortisone (Fludrocortisone Acetate) 0.1 Mg Tab 0.1 Mg PO BID Zofran (Ondansetron HCl) 4 Mg Tab 4 Mg PO Q6HR PRN Omeprazole 40 Mg Cap 40 Mg PO BID Mobic (Meloxicam) 7.5 Mg Tab 7.5 Mg PO DAILY Gaviscon Extra Strength (Aluminum Hydroxide-Mag Carb) 160-105 mg Chew 2 Tab CHEW HS Maximum 16 tabs/24 hrs. Review of Systems ROS Limitations: Poor Historian Except as stated in HPI: all other systems reviewed are Neg Exam Alert: Yes [place]: Person, Place, Situation Mood: Calm Affect: Appropriate Speech: Slurred Eye Contact: Indirect Memory Intact: Immediate Insight/Judgement Impaired but baseline MDM Medical Decision Making Medical Record Reviewed: Yes Assessment/Plan Patient to be discharged home with new medications and follow up in 1 week with this physician. Admitting the patient to the hospital or keeping him here in the emergency department does not help him. Patient's behavior only response to medication management. Therefore, keeping him longer is only likely to make him upset. Orders ^ Other Nursing Orders (02/23/17 14:09) Restraints Violent (02/23/17 10:35) Aripiprazole (Abilify) (02/23/17 21:00) Escitalopram (Lexapro) (02/23/17 15:45) Fludrocortisone (Florinef) (02/23/17 21:00) Gabapentin (Neurontin) (02/23/17 18:00) Topiramate (Topamax) (02/23/17 21:00) Haloperidol Inj (Haldol Inj) (02/23/17 21:30) Lorazepam Inj (Ativan Inj) (02/23/17 21:30) Diphenhydramine Inj (Benadryl Inj) (02/23/17 21:30) Restraints Violent (02/23/17 21:21) Diet Regular Basic (02/24/17 Breakfast) Ziprasidone Inj (Geodon Inj) (02/24/17 09:15) Diphenhydramine Inj (Benadryl Inj) (02/24/17 09:15) Diet Regular Basic (02/24/17 Lunch) ^ Other Nursing Orders (02/24/17 10:33) Clonazepam (Klonopin) (02/24/17 10:45) Quetiapine (Seroquel) (02/24/17 10:45) Restraints Violent (02/24/17 11:14) Results Vital Signs Date Time Temp Pulse Resp B/P Pulse Ox O2 Delivery O2 Flow Rate FiO2 6/15/17 11:47 98.8 100 18 136/78 99 Room Air 02/24/17 06:55 98.5 63 18 139/73 96 02/24/17 02:30 98.1 80 17 132/72 100 Room Air 02/23/17 22:15 98.2 84 19 149/89 97 Room Air 02/23/17 18:23 70 18 109/59 100 Room Air 02/23/17 15:44 83 18 140/63 100 Diagnosis Primary Impression: Intermittent explosive disorder in adult Wilberto Szymanski MD Feb 24, 2017 14:06
[2017-02-24] MEDS ORDERED: CLON1 PO (14:07)
[2017-02-24] MEDS ORDERED: QUET1TAB10 PO (14:07)
[2017-02-25] MEDS ORDERED: HALOPERIDOL LACTATE 5 MG/ML AMP IM ONE (00:15)
[2017-02-25] MEDS ORDERED: LORazepam 2 MG/ML VIAL IM ONE (00:15)
[2017-02-25] MEDS ORDERED: diphenhydrAMINE HCL 50 MG/ML VIAL IM ONE (00:15)
[2017-02-25 02:55] VITALS: BP 133/68; PULSE 99; RESP 18; O2SAT 100
[2017-02-25 06:32] VITALS: BP 154/88; PULSE 97; RESP 18; O2SAT 100
[2017-02-25] MEDS: QUEtiapine FUMARATE 300 MG TAB PO SCH (09:23)
[2017-02-25] MEDS: GABAPENTIN 400 MG CAP PO SCH ×3 (09:24→18:07)
[2017-02-25] MEDS: TOPIRAMATE 100 MG TAB PO SCH (09:39)
[2017-02-25] MEDS: clonazePAM 1 MG TAB PO SCH (09:39)
[2017-02-25] MEDS: ARIPiprazole 15 MG TAB PO SCH (09:39)
[2017-02-25] MEDS: FLUDROCORTISONE ACETATE 0.1 MG TAB PO SCH (09:39)
[2017-02-25 10:05] VITALS: BP 158/92; PULSE 110; RESP 18
[2017-02-25 10:45] VITALS: BP 158/92; PULSE 110; RESP 18
[2017-02-25 12:12] VITALS: BP 160/81; PULSE 99; RESP 18; O2SAT 96
[2017-02-25] MEDS ORDERED: KLON2TAB PO (18:44)
[2017-02-25] MEDS ORDERED: QUET1TAB10 PO (18:44)
[2017-02-25 19:00] VITALS: BP 140/85; PULSE 110; RESP 18
== END 2017-02-25 19:08 | disposition home or self-care (01) ==
LOC: NEPD 19:12 → NEPJ 02-25 19:08
DX: F63.81 Intermittent explosive disorder (principal); F84.0 Autistic disorder; S90.512A Abrasion, left ankle, initial encounter; S40.012A Contusion of left shoulder, initial encounter; W19.XXXA Unspecified fall, initial encounter; Y92.238 Other place in hospital as the place of occurrence of the external cause
CPT/HCPCS: 96372; 99285; J1200; J1630; J2060; J3486; Q0163

== ENCOUNTER → 2017-03-08 | Outpatient (CLI) | payer BC, OTHER ==
[~2017-03-08] MED LIST changes: -CLON2TAB PO; -ESCI20TA PO; -HYDR50TA94 PO; +KLON2TAB PO; +LORA-475 PO; -LORA2TAB7 PO; -NEUR400C PO; -OLAN5TAB PO; +QUET1TAB10 PO; -TOPA25TA8 PO
[2017-03-08 09:29] LABS: AUTOMATED NEUTROPHIL # 2.4 TH/MM3 (1.8-7.7); BASOPHIL % 0.7 % (0.0-2.0); EOSINOPHIL # 0.8 TH/MM3 (0-0.4); EOSINOPHIL % 13.4 % (0.0-4.0); HEMO FLAGS DIFF FINAL; LYMPH % 34.7 % (9.0-44.0); MEAN CORPUSCULAR HEMOGLOBIN 21.3 PG (27.0-34.0); MEAN CORPUSCULAR HGB CONC 31.3 % (32.0-36.0); MONO % 8.7 % (0.0-8.0); NEUT % 42.5 % (16.0-70.0); PLATELET COUNT 282 TH/MM3 (150-450); RED BLOOD COUNT 5.15 MIL/MM3 (4.50-5.90); RED CELL DISTRIBUTION WIDTH 19.3 % (11.6-17.2); WHITE BLOOD COUNT 5.7 TH/MM3 (4.0-11.0)
[2017-03-08 10:06] LABS: ANION GAP 8 MEQ/L (5-15); AST (GOT) 21 U/L (15-39); BICARBONATE 23.3 MEQ/L (21.0-32.0); BLOOD UREA NITROGEN 21 MG/DL (7-18); CHLORIDE 107 MEQ/L (98-107); GLOMERULAR FILTRATION RATE 121 ML/MIN (>89); GLUCOSE,FASTING 91 MG/DL (74-99); POTASSIUM 3.9 MEQ/L (3.5-5.1); SODIUM (NA) 138 MEQ/L (136-145)
[2017-03-08 10:33] LABS: ALKALINE PHOSPHATASE 117 U/L (45-117); ALT (GPT) 35 U/L (9-52); HDL CHOLESTEROL 43.4 MG/DL (40.0-60.0); LDL CHOLESTEROL 135 MG/DL (0-99); TOTAL BILIRUBIN ADULT 0.2 MG/DL (0.2-1.0)
[2017-03-08 13:12] LABS: HEMOGLOBIN A1a 1.6 %; HEMOGLOBIN A1b 1.1 %; HEMOGLOBIN Ao 84.2 %; HEMOGLOBIN F 1.2 %; HEMOGLOBIN LA1C 1.9 %; HEMOGLOBIN P3 3.5 %
== END ==
LOC: CLAB 08:36
PROVIDERS: ATTEND Internal Medicine Gastroenterology
DX: D64.9 Anemia, unspecified (principal); Q87.89 Other specified congenital malformation syndromes, not elsewhere classified; K21.9 Gastro-esophageal reflux disease without esophagitis
CPT/HCPCS: 36415; 80053; 80061; 82140; 82306; 82607; 82746; 83036; 84443; 85025

== ENCOUNTER → 2017-03-16 | Outpatient (CLI) | payer BC, OTHER ==
--- NOTE | 2017-03-17 18:03 | EKG ---
Date Performed: 03/16/2017 Time Performed: 14:29:30 PTAGE: 21 years EKG: Sinus rhythm NORMAL ECG PREVIOUS TRACING : 11/18/2016 00.36 Compared to prior tracing no significant change DOCTOR: Kendra Marin Interpretating Date/Time 03/17/2017 18:01:20
== END ==
LOC: HCAV 14:20
PROVIDERS: ATTEND Psychiatry & Neurology Psychiatry
DX: Z79.899 Other long term (current) drug therapy (principal)
CPT/HCPCS: 93005

== ENCOUNTER → 2017-03-29 | Outpatient (CLI) | payer BC, OTHER ==
[~2017-03-29] VITALS: Ht 193 cm; Wt 124.9 kg
[~2017-03-29] MED LIST changes: +ABIL15TA2 PO; -ARIP1TAB13 PO; -AUGM875T3 PO; +CHLORHEXIDINE GLUCONATE 2 % 1 PACK (2 CLOTHS) TOPICAL PRN; +CLON.2 PO; +GABA800T PO; +HYDR50TA94 PO; +INSULIN HUMAN REGULAR 1,000 UNITS/10 ML VIAL SQ PRN; +KETAMINE HCL 500 MG/10 ML VIAL IV ONE; -KLON2TAB PO; +LACTATED RINGER'S 1000 ML IV PRN; +LEXA5TAB PO; +METOPROLOL TARTRATE 25 MG TAB PO PRN; +MIDAZOLAM HCL 5 MG/5 ML VIAL ONE; +OLAN5TAB PO; +POVIDONE IODINE 5% (ANTISEPSIS KIT) 4 APPLICATIONS EACH NARE PRN; +SILVER NITR/POTASSIUM NITRATE APPLICATORS TOPICAL ONE; +SODIUM CHLORID 0.9% 500 ML IV PRN; +SODIUM CHLORIDE 0.9% FLUSH 10 ML FLUSH IV FLUSH PRN; +TOPA100T11 PO
[2017-03-29 09:14] VITALS: BP 131/81; PULSE 104; RESP 20; TEMP 97.8; O2SAT 97
--- NOTE | 2017-03-29 11:53 | GIPROC ---
[facility] [address] [facility]. [facility], [address] EGD PROCEDURE REPORT EXAM DATE: 03/29/2017 PATIENT NAME: Soham Pappas MR #: [id number] BIRTHDATE: 1995 ATTENDING: Rosario Valerio MD ORDER #: [id number] CONTAINER FINISHING INSPECTOR: Carlito Laura and Elda Donohue STATUS: outpatient INDICATIONS: The patient is a 21 yr old male here for an EGD due to abdominal pain history of MEN I PROCEDURE PERFORMED: EGD w/ biopsy MEDICATIONS: Per Anesthesia and None. TOPICAL ANESTHETIC: CONSENT: The patient understands the risks and benefits of the procedure and understands that these risks include, but are not limited to: sedation, allergic reaction, infection, perforation and/or bleeding. Alternative means of evaluation and treatment include, among others: physical exam, x-rays, and/or surgical intervention. The patient elects to proceed with this endoscopic procedure. medical equipment was checked for proper function. Hand hygiene and appropriate measures for infection prevention was taken. After the risks, benefits and alternatives of the procedure were thoroughly explained, Informed consent was verified, confirmed and timeout was successfully executed by the treatment team. The patient was anesthetized with topical anesthesia and the Pentax EG-[id number] endoscope was introduced through the mouth and advanced to the second portion of the duodenum. Retroflexed views revealed a hiatal hernia The gastroscope was then slowly withdrawn and removed. Retained food in stomach suggesting gastroparesis peg balloon in place duodenum normal biopsy to r/o celiac esophagitis distal esophagus-biopsy gastritis antrum-biopsy granulation tissue around peg tube/skin level cauterized using silvenitrate sticks. ADVERSE EVENTS: There were no complications. IMPRESSIONS: 1. Retained food in stomach suggesting gastroparesis peg balloon in place duodenum normal biopsy to r/o celiac esophagitis distal esophagus-biopsy gastritis antrum-biopsy granulation tissue around peg tube/skin level cauterized using silvenitrate sticks 2. Retroflexed views revealed a hiatal hernia RECOMMENDATIONS: 1. Anti-reflux regimen 2. Continue PPI 3. Resume diet PATIENT CONDITION: stable DISPOSITION: Home REPEAT EXAM: EGD pending biopsy results Rosario Valerio MD eSigned: Rosario Valerio MD 03/29/2017 11:52 AM cc: Loulou Nielson M.D. PATIENT NAME: Soham Pappas MR#: [id number]
== END ==
LOC: HEND 08:20
PROVIDERS: ATTEND Internal Medicine Gastroenterology
DX: R10.9 Unspecified abdominal pain (principal); K44.9 Diaphragmatic hernia without obstruction or gangrene; K29.70 Gastritis, unspecified, without bleeding; K20.9 Esophagitis, unspecified; Z93.1 Gastrostomy status; E31.21 Multiple endocrine neoplasia [MEN] type I
CPT/HCPCS: 00740; 43239; 88305; 88312; J1642; J2250

== ENCOUNTER 2017-03-30 11:54 | Emergency (ER) | payer BC, OTHER ==
[~2017-03-30 11:54] MED LIST changes: -CHLORHEXIDINE GLUCONATE 2 % 1 PACK (2 CLOTHS) TOPICAL PRN; -INSULIN HUMAN REGULAR 1,000 UNITS/10 ML VIAL SQ PRN; -KETAMINE HCL 500 MG/10 ML VIAL IV ONE; -LACTATED RINGER'S 1000 ML IV PRN; -METOPROLOL TARTRATE 25 MG TAB PO PRN; -MIDAZOLAM HCL 5 MG/5 ML VIAL ONE; -POVIDONE IODINE 5% (ANTISEPSIS KIT) 4 APPLICATIONS EACH NARE PRN; -SILVER NITR/POTASSIUM NITRATE APPLICATORS TOPICAL ONE; -SODIUM CHLORID 0.9% 500 ML IV PRN; -SODIUM CHLORIDE 0.9% FLUSH 10 ML FLUSH IV FLUSH PRN
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
[2017-03-30] MEDS ORDERED: diphenhydrAMINE HCL 50 MG/ML VIAL IM ONE (12:30)
[2017-03-30] MEDS ORDERED: HALOPERIDOL LACTATE 5 MG/ML AMP IM ONE (12:30)
[2017-03-30] MEDS ORDERED: LORazepam 2 MG/ML VIAL IM ONE (12:30)
[2017-03-30 12:35] VITALS: BP 142/79; PULSE 82; RESP 20; TEMP 98.2; O2SAT 98
[2017-03-30 13:16] VITALS: BP 127/78; PULSE 82; RESP 20; TEMP 98.4; O2SAT 98
[2017-03-30 14:56] VITALS: BP 143/79; PULSE 100; RESP 18; O2SAT 99
[2017-03-30 15:37] LABS: BASOPHIL # 0.1 TH/MM3 (0-0.2); BASOPHIL % 0.8 % (0.0-2.0); EOSINOPHIL # 0.4 TH/MM3 (0-0.4); EOSINOPHIL % 2.9 % (0.0-4.0); HEMATOCRIT 36.1 % (39.0-51.0); HEMO FLAGS DIFF FINAL; LYMPH % 12.9 % (9.0-44.0); LYMPHOCYTE # 1.7 TH/MM3 (1.0-4.8); MEAN CELL VOLUME 67.8 FL (80.0-100.0); MEAN CORPUSCULAR HEMOGLOBIN 21.3 PG (27.0-34.0); MEAN CORPUSCULAR HGB CONC 31.4 % (32.0-36.0); MONO % 8.6 % (0.0-8.0); NEUT % 74.8 % (16.0-70.0); PLATELET COUNT 233 TH/MM3 (150-450); RED BLOOD COUNT 5.33 MIL/MM3 (4.50-5.90); RED CELL DISTRIBUTION WIDTH 19.4 % (11.6-17.2); WHITE BLOOD COUNT 13.4 TH/MM3 (4.0-11.0)
[2017-03-30 15:59] LABS: ALT (GPT) 32 U/L (9-52); ANION GAP 11 MEQ/L (5-15); AST (GOT) 37 U/L (15-39); BICARBONATE 20.4 MEQ/L (21.0-32.0); BLOOD UREA NITROGEN 17 MG/DL (7-18); CHLORIDE 111 MEQ/L (98-107); GLOMERULAR FILTRATION RATE 97 ML/MIN (>89); POTASSIUM 4.1 MEQ/L (3.5-5.1); SODIUM (NA) 142 MEQ/L (136-145)
[2017-03-30 16:00] LABS: ALKALINE PHOSPHATASE 100 U/L (45-117); TOTAL BILIRUBIN ADULT 0.1 MG/DL (0.2-1.0)
[2017-03-30 16:57] VITALS: BP 138/84; PULSE 98; RESP 20; TEMP 97.6; O2SAT 98
--- NOTE | 2017-03-30 17:55 | PD ---
Data Data Last Documented VS Vital Signs Date Time Temp Pulse Resp B/P Pulse Ox O2 Delivery O2 Flow Rate FiO2 03/31/17 06:09 84 20 137/86 Room Air 03/31/17 01:00 97.4 97 Orders Complete Blood Count With Diff (03/30/17 12:16) Comprehensive Metabolic Panel (03/30/17 12:16) Psych Screen (03/30/17 12:16) Haloperidol Inj (Haldol Inj) (03/30/17 12:30) Lorazepam Inj (Ativan Inj) (03/30/17 12:30) Alcohol (Ethanol) (03/30/17 12:16) Diphenhydramine Inj (Benadryl Inj) (03/30/17 12:30) Diet Regular Basic (03/30/17 Dinner) Gabapentin (Neurontin) (03/31/17 09:00) Hydroxyzine Hcl (Atarax) (03/30/17 21:00) Topiramate (Topamax) (03/30/17 21:00) Quetiapine (Seroquel) (03/30/17 18:30) Restraints Violent (03/30/17 18:52) Aripiprazole (Abilify) (03/30/17 21:00) Clonazepam (Klonopin) (03/30/17 21:00) Clonazepam (Klonopin) (03/31/17 12:00) Diet Regular Basic (03/31/17 Breakfast) Acetaminophen (Tylenol) (03/31/17 06:30) Ondansetron Odt (Zofran Odt) (03/31/17 09:00) Quetiapine (Seroquel) (03/31/17 09:30) Quetiapine (Seroquel) (03/31/17 12:45) Labs Laboratory Tests Test 03/30/17 14:04 White Blood Count 13.4 TH/MM3 Red Blood Count 5.33 MIL/MM3 Hemoglobin 11.3 GM/DL Hematocrit 36.1 % Mean Corpuscular Volume 67.8 FL Mean Corpuscular Hemoglobin 21.3 PG Mean Corpuscular Hemoglobin 31.4 % Concent Red Cell Distribution Width 19.4 % Platelet Count 233 TH/MM3 Mean Platelet Volume 6.9 FL Neutrophils (%) (Auto) 74.8 % Lymphocytes (%) (Auto) 12.9 % Monocytes (%) (Auto) 8.6 % Eosinophils (%) (Auto) 2.9 % Basophils (%) (Auto) 0.8 % Neutrophils # (Auto) 10.0 TH/MM3 Lymphocytes # (Auto) 1.7 TH/MM3 Monocytes # (Auto) 1.1 TH/MM3 Eosinophils # (Auto) 0.4 TH/MM3 Basophils # (Auto) 0.1 TH/MM3 CBC Comment DIFF FINAL Differential Comment Sodium Level 142 MEQ/L Potassium Level 4.1 MEQ/L Chloride Level 111 MEQ/L Carbon Dioxide Level 20.4 MEQ/L Anion Gap 11 MEQ/L Blood Urea Nitrogen 17 MG/DL Creatinine 0.99 MG/DL Estimat Glomerular Filtration 97 ML/MIN Rate Random Glucose 79 MG/DL Calcium Level 9.0 MG/DL Total Bilirubin 0.1 MG/DL Aspartate Amino Transf 37 U/L (AST/SGOT) Alanine Aminotransferase 32 U/L (ALT/SGPT) Alkaline Phosphatase 100 U/L Total Protein 7.3 GM/DL Albumin 3.6 GM/DL Ethyl Alcohol Level LESS THAN 3 MG/DL MDM Supervised Visit with LASHONDA: Yes Narrative Course I, Dr. Chavez, have reviewed the advance practice practitioner's documentation and am in agreement, met with the patient face to face, made the diagnosis, and the medical decision making was done by me. *My assessment and Findings: [Patient and me from previous ER admission, has a history of agitated behavior, frankly requires ER sedation after being Fuentes acted in 4-point restraints. Indeed shortly after admission to the ER the patient stated he was leaving and signing himself out, He did attempt to elope. Unfortunately I do not think that the patient is able to make his own decisions about signing out AMA given his autism spectrum. His mother is not here at this time. Force I had no choice but to restraining chemically sedate the patient. He tolerated this fairly well. No injuries to his person were observed and I did observe security restraining the patient. Patient ultimately was medically cleared for psychiatric evaluation and disposition Diagnosis Primary Impression: Behavior problem, adult Mook Chavez MD Mar 30, 2017 17:54
[2017-03-30 17:58] VITALS: BP 128/69; PULSE 93; RESP 18; O2SAT 98
[2017-03-30] MEDS ORDERED: QUEtiapine FUMARATE 300 MG TAB PO ONE (18:30)
[2017-03-30] MEDS: clonazePAM 1 MG TAB PO SCH (21:00)
[2017-03-30] MEDS: ARIPiprazole 15 MG TAB PO SCH (21:00)
[2017-03-30] MEDS ORDERED: hydrOXYzine HCL 50 MG TAB PO SCH (21:00)
[2017-03-30] MEDS: TOPIRAMATE 100 MG TAB PO SCH (21:00)
[2017-03-31 01:00] VITALS: BP 145/80; PULSE 89; RESP 16; TEMP 97.4; O2SAT 97
[2017-03-31 06:09] VITALS: BP 137/86; PULSE 84; RESP 20
[2017-03-31] MEDS ORDERED: ACETAMINOPHEN 500 MG CPLT PO ONE (06:30)
[2017-03-31] MEDS: GABAPENTIN 400 MG CAP PO SCH ×3 (08:59→13:28)
[2017-03-31] MEDS: ARIPiprazole 15 MG TAB PO SCH (08:59)
[2017-03-31] MEDS: clonazePAM 1 MG TAB PO SCH (08:59)
[2017-03-31] MEDS: TOPIRAMATE 100 MG TAB PO SCH (08:59)
[2017-03-31] MEDS ORDERED: ONDANSETRON ODT 4 MG TAB PO ONE (09:00)
[2017-03-31] MEDS ORDERED: QUEtiapine FUMARATE 300 MG TAB PO ONE (09:30)
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
[2017-03-31] MEDS ORDERED: clonazePAM 1 MG TAB PO SCH (12:00)
[2017-03-31] MEDS ORDERED: QUEtiapine FUMARATE 100 MG TAB PO ONE (12:45)
== END 2017-03-31 13:29 | disposition home or self-care (01) ==
LOC: NEPD 11:54 → NEPJ 03-31 13:29
DX: F91.9 Conduct disorder, unspecified (principal); F84.0 Autistic disorder; R56.9 Unspecified convulsions; A52.17 General paresis; K21.9 Gastro-esophageal reflux disease without esophagitis; F31.9 Bipolar disorder, unspecified; J45.909 Unspecified asthma, uncomplicated; M08.00 Unspecified juvenile rheumatoid arthritis of unspecified site; E07.9 Disorder of thyroid, unspecified
CPT/HCPCS: 80053; 80307; 85025; 96372; 99285; J1200; J1630; J2060

== ENCOUNTER 2017-04-19 05:55 | Emergency (ER) | payer BC, OTHER ==
[~2017-04-19] VITALS: Ht 193 cm; Wt 98.0 kg
[2017-04-19] MEDS ORDERED: SODIUM CHLORIDE 0.9% FLUSH 10 ML FLUSH IVF PRN (06:15)
--- NOTE | 2017-04-19 06:27 | PD ---
HPI Chief Complaint: seizure Time Seen by Provider: 06:06 Travel History International Travel<30 days: No Contact w/Intl Traveler<30days: No Traveled to known affect area: No History of Present Illness HPI 21-year-old male with history of autism, seizure, encephalopathy, anemia, mood/ behavioral disorder, MEN1 syndrome, GERD, dysautonomia, asthma, Bardet-Biedle syndrome, narcolepsy, cataplexy, rheumatoid arthritis, chronic neck pain, and spastic paraplegia, presents to the emergency department by EMS transport for reported seizure and possible syncopal episode. Patient initially presented awake but nonverbal and subsequently was able to talk without difficulty. Patient is not able or unwilling to give further history. But as to have his medication list read to him so that he can confirm his current medications. PFSH Past Medical History Narrative Medical autism seizure behavioral disorder encephalopathy anemia and 1 syndrome GERD dysautonomia asthma Bardet-Biedle syndrome narcolepsy cataplexy rheumatoid arthritis chronic neck pain spastic paraplegia; [id number] PEG tube; no tobacco use; nursing notes reviewed ADHD: No Arthritis: Yes (JRA) Asthma: Yes Autoimmune Disease: Yes (decreased IGA, ?JRA, MEN1) Blood Disorders: No Bipolar Disorder: Yes Anxiety: No Depression: No Cancer: No ( ) Cardiovascular Problems: Yes (DISAUTONOMIA) Chemotherapy: No Chest Pain: No Congestive Heart Failure: No COPD: No Cerebrovascular Accident: No Developmental Delay: Yes Diabetes: No ( ) Diminished Hearing: No Endocrine: Yes Gastrointestinal Disorders: Yes ( INTERMITTENT REFLUX, GERD) GERD: Yes Genitourinary: No Hepatitis: No Hiatal Hernia: No Heparin Induced Thrombocytopen: No Hypertension: No Immune Disorder: Yes (JRA) Implanted Vascular Access Dvce: Yes (PEG TUBE/INFUSA PORT) Musculoskeletal: Yes (MITOCHONDRIAL COMPLEX 1) Neurologic: Yes (AUTISTIC,SEIZURES) Psychiatric: No Reproductive: No Respiratory: Yes (IGA DEFICIENCY) Immunizations Current: Yes Migraines: Yes Radiation Therapy: No Renal Failure: No Seizures: Yes ( ) Sickle Cell Disease: No Sleep Apnea: No Thyroid Disease: Yes Ulcer: No Past Surgical History Abdominal Surgery: Yes (G TUBE X2) AICD: No Body Medical Devices: peg tube Cardiac Surgery: No Ear Surgery: No Endocrine Surgery: No Eye Surgery: No Genitourinary Surgery: No Gynecologic Surgery: No Insulin Pump: No Joint Replacement: No Neurologic Surgery: No Oral Surgery: Yes (T&A) Pacemaker: No Thoracic Surgery: No Tonsillectomy: Yes Tympanostomy Tube: Yes (X2) Other Surgery: Yes (RHINOPLASTY) Social History Alcohol Use: No Tobacco Use: No Substance Use: No Allergies-Medications (Allergen,Severity, Reaction): Coded Allergies: Ceftin (Verified Allergy, Severe, RASH, 04/19/17) Per Mom. Latex (Verified Allergy, Severe, itching, 04/19/17) TONGUE ITCHES Per Mom. Trileptal (Verified Allergy, Severe, NEURO TOXIC, 04/19/17) Per Mom. Reported Meds & Prescriptions Reported Meds & Active Scripts Active Kapvay ER 12 HR (Clonidine HCl) 0.1 Mg Tab 0.1 Mg PO 2 Q7AM,2 Q7PM Ativan (Lorazepam) 2 Mg Tab 2 Mg PO Q6H PRN Quetiapine (Quetiapine Fumarate) 300 Mg Tab 300 Mg PO 1QAM AND 2 QHS Klonopin (Clonazepam) 1 Mg Tab 2 Mg PO 7AM,12PM AND 7PM Synthroid (Levothyroxine Sodium) 75 Mcg Tab 75 Mcg PO DAILY@0600 Lactulose Liq (Lactulose) 10 Gm/15 Ml Soln 30 Ml PO Q6H 10 Days Reported Abilify (Aripiprazole) 15 Mg Tab 15 Mg PO BID Catapres (Clonidine) 0.2 Mg Tab 0.2 Mg PO BID Gabapentin 800 Mg Tab 800 Mg PO TID Hydroxyzine HCl 50 Mg Tab 100 Mg PO HS Lexapro (Escitalopram Oxalate) 5 Mg Tab 5 Mg PO DAILY Olanzapine 5 Mg Tab 5 Mg PO BID Topamax (Topiramate) 100 Mg Tab 300 Mg PO BID Zyrtec (Cetirizine HCl) 10 Mg Tablet 10 Mg PO DAILY PRN Vitamin D3 (Cholecalciferol) 2,000 Unit Cap 4,000 Units PO DAILY Nodolor 325-65-100 mg (Isometheptene-Dichloralphenazo) 1 Cap Cap 2 Cap PO AT ONSET OF HEADACHE PRN Fludrocortisone (Fludrocortisone Acetate) 0.1 Mg Tab 0.1 Mg PO BID Zofran (Ondansetron HCl) 4 Mg Tab 4 Mg PO Q6HR PRN Omeprazole 40 Mg Cap 40 Mg PO BID Mobic (Meloxicam) 7.5 Mg Tab 7.5 Mg PO DAILY Gaviscon Extra Strength (Aluminum Hydroxide-Mag Carb) 160-105 mg Chew 2 Tab CHEW HS Maximum 16 tabs/24 hrs. Review of Systems ROS Limitations: Clinical Condition, Poor Historian Except as stated in HPI: all other systems reviewed are Neg Physical Exam Narrative GENERAL: Well-developed well-nourished male in no acute distress SKIN: Warm and dry. HEAD: Atraumatic. Normocephalic. No scalp soft tissue swelling or hematoma EYES: Pupils equal and round. No scleral icterus. No injection or drainage. ENT: No nasal bleeding or discharge. Mucous membranes pink and moist. NECK: Trachea midline. No JVD. Nontender to direct palpation along the cervical spine no bony step-off. CARDIOVASCULAR: Increased regular rate and rhythm. RESPIRATORY: No accessory muscle use. Clear to auscultation. Breath sounds equal bilaterally. GASTROINTESTINAL: Abdomen soft, non-tender, nondistended. Hepatic and splenic margins not palpable. MUSCULOSKELETAL: Extremities without clubbing, cyanosis, or edema. No obvious deformities. NEUROLOGICAL: Awake and alert. No obvious cranial nerve deficits. Motor grossly within normal limits. Five out of 5 muscle strength in the arms and legs. Normal speech. PSYCHIATRIC: Appropriate mood and affect; insight and judgment normal. Data Data Last Documented VS Vital Signs Date Time Temp Pulse Resp B/P Pulse Ox O2 Delivery O2 Flow Rate FiO2 04/19/17 06:56 98.2 118 18 131/71 99 Orders Complete Blood Count With Diff (04/19/17 06:06) Alcohol (Ethanol) (04/19/17 06:06) Drug Screen, Random Urine (04/19/17 06:06) Ct Brain W/O Iv Contrast(Rout) (04/19/17 ) Blood Glucose (04/19/17 06:06) Ecg Monitoring (04/19/17 06:06) Iv Access Insert/Monitor (04/19/17 06:06) Oximetry (04/19/17 06:06) Comprehensive Metabolic Panel (04/19/17 06:06) Sodium Chloride 0.9% Flush (Ns Flush) (04/19/17 06:15) Ua Includes Microscopic (04/19/17 06:06) Ammonia (04/19/17 06:06) Ct Cerv Spine W/O Contrast (04/19/17 ) ^ Seizure Precautions (04/19/17 06:37) Resp Request For Service (04/19/17 ) Carbamazepine (Tegretol) (04/19/17 06:45) Labs Laboratory Tests Test 04/19/17 06:50 White Blood Count 6.3 TH/MM3 Red Blood Count 4.95 MIL/MM3 Hemoglobin 10.3 GM/DL Hematocrit 33.5 % Mean Corpuscular Volume 67.6 FL Mean Corpuscular Hemoglobin 20.7 PG Mean Corpuscular Hemoglobin 30.7 % Concent Red Cell Distribution Width 18.0 % Platelet Count 303 TH/MM3 Mean Platelet Volume 6.5 FL Neutrophils (%) (Auto) 45.4 % Lymphocytes (%) (Auto) 29.5 % Monocytes (%) (Auto) 10.9 % Eosinophils (%) (Auto) 13.4 % Basophils (%) (Auto) 0.8 % Neutrophils # (Auto) 2.8 TH/MM3 Lymphocytes # (Auto) 1.9 TH/MM3 Monocytes # (Auto) 0.7 TH/MM3 Eosinophils # (Auto) 0.8 TH/MM3 Basophils # (Auto) 0.1 TH/MM3 CBC Comment AUTO DIFF MDM Medical Decision Making Medical Screen Exam Complete: Yes Emergency Medical Condition: Yes Medical Record Reviewed: Yes Differential Diagnosis Syncope, seizure, postictal state, mood disorder, arrhythmia, anemia, electrolyte disturbance, education noncompliance Narrative Course IV access is attempted unsuccessfully and subsequently [id number]-[id number] accessed patient talking/conversant and willing to review his medication list from EMR; cooperative at this time sister called at 6:39 and will notify patient's mother @ [id number] care signed over to Miranda Staley MD Apr 19, 2017 06:26
[2017-04-19 06:56] VITALS: BP 131/71; PULSE 118; RESP 18; TEMP 98.2; O2SAT 99
[2017-04-19 06:58] LABS: AUTOMATED NEUTROPHIL # 2.8 TH/MM3 (1.8-7.7); BASOPHIL # 0.1 TH/MM3 (0-0.2); BASOPHIL % 0.8 % (0.0-2.0); EOSINOPHIL # 0.8 TH/MM3 (0-0.4); EOSINOPHIL % 13.4 % (0.0-4.0); HEMATOCRIT 33.5 % (39.0-51.0); LYMPH % 29.5 % (9.0-44.0); LYMPHOCYTE # 1.9 TH/MM3 (1.0-4.8); MEAN CELL VOLUME 67.6 FL (80.0-100.0); MEAN CORPUSCULAR HEMOGLOBIN 20.7 PG (27.0-34.0); MEAN CORPUSCULAR HGB CONC 30.7 % (32.0-36.0); MONO % 10.9 % (0.0-8.0); NEUT % 45.4 % (16.0-70.0); PLATELET COUNT 303 TH/MM3 (150-450); RED BLOOD COUNT 4.95 MIL/MM3 (4.50-5.90); WHITE BLOOD COUNT 6.3 TH/MM3 (4.0-11.0)
[2017-04-19 07:01] LABS: HEMO FLAGS AUTO DIFF
[2017-04-19 07:04] VITALS: O2SAT 98
[2017-04-19 07:09] LABS: CHLORIDE 109 MEQ/L (98-107); POTASSIUM 3.4 MEQ/L (3.5-5.1); SODIUM (NA) 140 MEQ/L (136-145)
[2017-04-19 07:12] LABS: ANION GAP 9 MEQ/L (5-15); BICARBONATE 21.7 MEQ/L (21.0-32.0); BLOOD UREA NITROGEN 16 MG/DL (7-18)
[2017-04-19 07:15] LABS: ALT (GPT) 27 U/L (9-52); AST (GOT) 20 U/L (15-39); GLOMERULAR FILTRATION RATE 106 ML/MIN (>89)
[2017-04-19 07:17] LABS: TOTAL BILIRUBIN ADULT 0.1 MG/DL (0.2-1.0)
[2017-04-19 07:18] LABS: ALKALINE PHOSPHATASE 105 U/L (45-117)
[2017-04-19 07:40] LABS: KERATOCYTES OCC (NORMAL); OVALOCYTES 1+ (NORMAL); SCAN/DIFF AUTO DIFF CONFIRMED
--- NOTE | 2017-04-19 08:12 | RADRPT ---
EXAM DATE/TIME: 04/19/2017 07:47 [facility] COMPARISON: MRI BRAIN W & W/O CONTRAST, June 05, 2016, 9:56. CT BRAIN W/O CONTRAST, January 22, 2017, 11:16. INDICATIONS : Syncope. Head and neck pain. RADIATION DOSE: 61.89 CTDIvol (mGy) MEDICAL HISTORY : Seizures. Encephalopathy. SURGICAL HISTORY : None. ENCOUNTER: Initial ACUITY: 1 day PAIN SCALE: 10/10 LOCATION: cranial TECHNIQUE: Multiple contiguous axial images were obtained of the head. Using automated exposure control and adj ustment of the mA and/or kV according to patient size, radiation dose was kept as low as reasonably a chievable to obtain optimal diagnostic quality images. DICOM format image data is available electro nically for review and comparison. FINDINGS: CEREBRUM: The ventricles are normal for age. No evidence of midline shift, mass lesion, hemorrhage or acute in farction. No extra-axial fluid collections are seen. POSTERIOR FOSSA: The cerebellum and brainstem are intact. The 4th ventricle is midline. The cerebellopontine angle i s unremarkable. EXTRACRANIAL: The visualized portion of the orbits is intact. SKULL: The calvaria is intact. No evidence of skull fracture. Stable endosteal spur in the region of the le ft frontal bone CONCLUSION: Stable, negative exam. No acute intracranial process. Bubba Morton MD on April 19, 2017 at 8:07 Board Certified Radiologist. This report was verified electronically.
--- NOTE | 2017-04-19 08:38 | RADRPT ---
EXAM DATE/TIME: 04/19/2017 07:47 [facility] COMPARISON: CT CERVICAL SPINE W/O CONTRAST, October 22, 2016, 16:19. INDICATIONS : Syncope. Head and neck pain. RADIATION DOSE: 26.63 CTDIvol (mGy) MEDICAL HISTORY : Seizures. Encephalopathy. SURGICAL HISTORY : None. ENCOUNTER: Initial ACUITY: 1 day PAIN SCALE: 10/10 LOCATION: neck TECHNIQUE: Volumetric scanning of the cervical spine was performed. Multiplanar reconstructions in the sagittal, coronal and oblique axial planes were performed. Using automated exposure control and adjustment o f the mA and/or kV according to patient size, radiation dose was kept as low as reasonably achievable to obtain optimal diagnostic quality images. DICOM format image data is available electronically f or review and comparison. FINDINGS: VERTEBRAE: Normal vertebral body height. ALIGNMENT: No evidence of subluxation. C2-C3: The bony spinal canal is normal in size. No evidence of disc bulge or herniation. The neural forami na are bilaterally patent. C3-C4: The bony spinal canal is normal in size. No evidence of disc bulge or herniation. The neural forami na are bilaterally patent. C4-C5: The bony spinal canal is normal in size. No evidence of disc bulge or herniation. The neural forami na are bilaterally patent. C5-C6: The bony spinal canal is normal in size. No evidence of disc bulge or herniation. The neural forami na are bilaterally patent. C6-C7: The bony spinal canal is normal in size. No evidence of disc bulge or herniation. The neural forami na are bilaterally patent. C7-T1: The bony spinal canal is normal in size. No evidence of disc bulge or herniation. The neural forami na are bilaterally patent. CONCLUSION: No acute disease. No significant change has occurred. Rory Farris MD on April 19, 2017 at 8:26 Board Certified Radiologist. This report was verified electronically.
--- NOTE | 2017-04-19 09:03 | PD ---
Physical Exam Date Seen by Provider: Apr 19, 2017 Time Seen by Provider: 07:00 Narrative Patient signed out to me at [address] Flores, please see previous notes for further details. He is here after his seizure, but after a period of observation in the ER is back to his baseline mental status and able to answer questions appropriately. Patient's mother had been notified and came in to scrap picker the patient. She states that he did not tell her that he was leaving the house. Laboratory Tests Test 04/19/17 06:50 Hemoglobin 10.3 GM/DL (13.0-17.0) Hematocrit 33.5 % (39.0-51.0) Mean Corpuscular Volume 67.6 FL (80.0-100.0) Mean Corpuscular Hemoglobin 20.7 PG (27.0-34.0) Mean Corpuscular Hemoglobin 30.7 % Concent (32.0-36.0) Red Cell Distribution Width 18.0 % (11.6-17.2) Mean Platelet Volume 6.5 FL (7.0-11.0) Monocytes (%) (Auto) 10.9 % (0.0-8.0) Eosinophils (%) (Auto) 13.4 % (0.0-4.0) Eosinophils # (Auto) 0.8 TH/MM3 (0-0.4) Ovalocytes 1+ (NORMAL) Potassium Level 3.4 MEQ/L (3.5-5.1) Chloride Level 109 MEQ/L (98-107) Random Glucose 145 MG/DL (74-106) Calcium Level 8.0 MG/DL (8.5-10.1) Total Bilirubin 0.1 MG/DL (0.2-1.0) Ammonia 56 MCMOL/L (11-32) Albumin 3.2 GM/DL (3.4-5.0) Carbamazepine (Tegretol) Level 3.4 MCG/ML (4.0-12.0) Last [address] 04/19/17 0000 Signed Impressions: Service Date/Time: Wednesday, April 19, 2017 07:47 - CONCLUSION: Stable, negative exam. No acute intracranial process. Bubba Morton MD Cervical Spine CT 04/19/17 0000 Signed Impressions: Service Date/Time: Wednesday, April 19, 2017 07:47 - CONCLUSION: No acute disease. No significant change has occurred. Rory Farris MD Lab work did not show significant metabolic issues. It shows that his Tegretol levels are low but the patient's mom states that he is not on Tegretol. We have obtained paperwork from patient's previous chart from March 04 at this she which said that he was. At this point, he is back to baseline mental status according to his mom. Vital signs are stable in the ER. My plan would be to release him and have him follow-up with primary care physician who can go over his medications with mom again. Return for any worsening in symptoms as needed. The plan has been discussed with mom and she states understanding. Data Data Last Documented VS Vital Signs Date Time Temp Pulse Resp B/P Pulse Ox O2 Delivery O2 Flow Rate FiO2 04/19/17 07:04 98 Room Air 04/19/17 06:56 98.2 118 18 131/71 Orders Complete Blood Count With Diff (04/19/17 06:06) Alcohol (Ethanol) (04/19/17 06:06) Drug Screen, Random Urine (04/19/17 06:06) Ct Brain W/O Iv Contrast(Rout) (04/19/17 ) Blood Glucose (04/19/17 06:06) Ecg Monitoring (04/19/17 06:06) Iv Access Insert/Monitor (04/19/17 06:06) Oximetry (04/19/17 06:06) Comprehensive Metabolic Panel (04/19/17 06:06) Sodium Chloride 0.9% Flush (Ns Flush) (04/19/17 06:15) Ua Includes Microscopic (04/19/17 06:06) Ammonia (04/19/17 06:06) Ct Cerv Spine W/O Contrast (04/19/17 ) ^ Seizure Precautions (04/19/17 06:37) Resp Request For Service (04/19/17 ) Carbamazepine (Tegretol) (04/19/17 06:45) Labs Laboratory Tests Test 04/19/17 06:50 White Blood Count 6.3 TH/MM3 Red Blood Count 4.95 MIL/MM3 Hemoglobin 10.3 GM/DL Hematocrit 33.5 % Mean Corpuscular Volume 67.6 FL Mean Corpuscular Hemoglobin 20.7 PG Mean Corpuscular Hemoglobin 30.7 % Concent Red Cell Distribution Width 18.0 % Platelet Count 303 TH/MM3 Mean Platelet Volume 6.5 FL Neutrophils (%) (Auto) 45.4 % Lymphocytes (%) (Auto) 29.5 % Monocytes (%) (Auto) 10.9 % Eosinophils (%) (Auto) 13.4 % Basophils (%) (Auto) 0.8 % Neutrophils # (Auto) 2.8 TH/MM3 Lymphocytes # (Auto) 1.9 TH/MM3 Monocytes # (Auto) 0.7 TH/MM3 Eosinophils # (Auto) 0.8 TH/MM3 Basophils # (Auto) 0.1 TH/MM3 CBC Comment AUTO DIFF Differential Comment AUTO DIFF CONFIRMED Ovalocytes 1+ Keratocytes OCC Sodium Level 140 MEQ/L Potassium Level 3.4 MEQ/L Chloride Level 109 MEQ/L Carbon Dioxide Level 21.7 MEQ/L Anion Gap 9 MEQ/L Blood Urea Nitrogen 16 MG/DL Creatinine 0.92 MG/DL Estimat Glomerular Filtration 106 ML/MIN Rate Random Glucose 145 MG/DL Calcium Level 8.0 MG/DL Total Bilirubin 0.1 MG/DL Aspartate Amino Transf 20 U/L (AST/SGOT) Alanine Aminotransferase 27 U/L (ALT/SGPT) Alkaline Phosphatase 105 U/L Ammonia 56 MCMOL/L Total Protein 6.4 GM/DL Albumin 3.2 GM/DL Carbamazepine (Tegretol) Level 3.4 MCG/ML Ethyl Alcohol Level LESS THAN 3 MG/DL [facility] Medical Record Reviewed: Yes Supervised Visit with LASHONDA: No Diagnosis Primary Impression: Seizure disorder Disposition: 01 DISCHARGE HOME Condition: Stable Wilder Mccall MD Apr 19, 2017 09:03
[2017-04-19 09:19] VITALS: BP 130/75
--- NOTE | 2017-04-19 15:01 | EKG ---
Date Performed: 04/19/2017 Time Performed: 07:05:37 PTAGE: 21 years EKG: SINUS TACHYCARDIA BORDERLINE RIGHT AXIS DEVIATION POSSIBLE INFERIOR MYOCARDIAL INFARCTION A BNORMAL RHYTHM ECG PREVIOUS TRACING : 03/16/2017 14.29 DOCTOR: Mushtaq Zepeda Interpretating Date/Time 04/19/2017 14:55:57
[2017-04-27] MEDS ORDERED: TOPA100T11 PO (15:30)
[2017-04-27] MEDS ORDERED: GABA800T PO (15:30)
[2017-04-27] MEDS ORDERED: CLON1 PO (15:30)
[2017-04-27] MEDS ORDERED: LORA-475 PO (15:34)
[2017-04-27] MEDS ORDERED: ABIL15TA2 PO (15:34)
[2017-04-27] MEDS ORDERED: [UNRECOGNIZED DRUG - CODE] PO ×2 (15:34→15:40)
[2017-04-27] MEDS ORDERED: QUET1TAB10 PO (15:34)
[2017-04-29] MEDS ORDERED: ARIP1TAB7 PO ×2 (13:47→13:48)
[2017-04-29] MEDS ORDERED: SERO300T PO (14:07)
== END 2017-04-19 09:22 | disposition home or self-care (01) ==
LOC: PHED 05:55
DX: R56.9 Unspecified convulsions (principal); R00.0 Tachycardia, unspecified; J45.909 Unspecified asthma, uncomplicated; F84.0 Autistic disorder; Q87.89 Other specified congenital malformation syndromes, not elsewhere classified; G82.20 Paraplegia, unspecified
CPT/HCPCS: 36600; 70450; 72125; 80053; 80156; 80307; 82140; 85025; 93005; 99285; J1642

== ENCOUNTER 2017-04-24 20:46 | Emergency (ER) | payer BC, OTHER ==
[~2017-04-24 20:46] MED LIST changes: -LACT10SO PO
[2017-04-24 21:06] VITALS: BP 151/90; PULSE 104; RESP 18; TEMP 98.6; O2SAT 98
--- NOTE | 2017-04-24 21:32 | PD ---
HPI Chief Complaint: Psychiatric Symptoms Time Seen by Provider: 21:27 Travel History International Travel<30 days: No Contact w/Intl Traveler<30days: No Traveled to known affect area: No History of Present Illness HPI 21-year-old male with presents to emergency department under a Fuentes act by PD. The patient had become aggressive towards his mother and threatened to throw himself down the stairs. This is a patient well-known to the medical staff for multiple ER visits. He was just seen in the ER 1 week ago. The patient here is cooperative. At this point he is not acting out. [facility] Past Medical History Narrative Medical history of autism, seizure, encephalopathy, anemia, mood/behavioral disorder, MEN1 syndrome, GERD, dysautonomia, asthma, Bardet-Biedle syndrome, narcolepsy, cataplexy, rheumatoid arthritis, chronic neck pain, and spastic paraplegia ADHD: No Arthritis: Yes (JRA) Asthma: Yes Autoimmune Disease: Yes (decreased IGA, ?JRA, MEN1) Blood Disorders: No Bipolar Disorder: Yes Anxiety: No Depression: No Cardiovascular Problems: Yes (DISAUTONOMIA) Chemotherapy: No Chest Pain: No Congestive Heart Failure: No COPD: No Cerebrovascular Accident: No Developmental Delay: Yes Diminished Hearing: No Endocrine: Yes Gastrointestinal Disorders: Yes ( INTERMITTENT REFLUX, GERD) GERD: Yes Genitourinary: No Hepatitis: No Hiatal Hernia: No Heparin Induced Thrombocytopen: No Hypertension: No Immune Disorder: Yes (JRA) Implanted Vascular Access Dvce: Yes (PEG TUBE/INFUSA PORT) Medical other: Yes (MITROCHONDRIAL COMPLEX 1MD, SPASTIC PARAPALEGIC, DYSAUTOMONY, MEN 1) Musculoskeletal: Yes (MITOCHONDRIAL COMPLEX 1) Neurologic: Yes (AUTISTIC,SEIZURES) Psychiatric: No Reproductive: No Respiratory: Yes (IGA DEFICIENCY) Immunizations Current: Yes Migraines: Yes Radiation Therapy: No Renal Failure: No Seizures: Yes ( ) Sickle Cell Disease: No Sleep Apnea: No Thyroid Disease: Yes Ulcer: No Tetanus Vaccination: > 5 Years Influenza Vaccination: Yes Past Surgical History Abdominal Surgery: Yes (G TUBE X2) AICD: No Body Medical Devices: peg tube Cardiac Surgery: No Ear Surgery: No Endocrine Surgery: No Eye Surgery: No Genitourinary Surgery: No Gynecologic Surgery: No Insulin Pump: No Joint Replacement: No Neurologic Surgery: No Oral Surgery: Yes (T&A) Pacemaker: No Thoracic Surgery: No Tonsillectomy: Yes Tympanostomy Tube: Yes (X2) Other Surgery: Yes (RHINOPLASTY) Social History Alcohol Use: No Tobacco Use: No Substance Use: No Allergies-Medications (Allergen,Severity, Reaction): Coded Allergies: Ceftin (Verified Allergy, Severe, RASH, 04/24/17) Per Mom. Latex (Verified Allergy, Severe, itching, 04/24/17) TONGUE ITCHES Per Mom. Trileptal (Verified Allergy, Severe, NEURO TOXIC, 04/24/17) Per Mom. Reported Meds & Prescriptions Reported Meds & Active Scripts Active Kapvay ER 12 HR (Clonidine HCl) 0.1 Mg Tab 0.1 Mg PO 2 Q7AM,2 Q7PM Ativan (Lorazepam) 2 Mg Tab 2 Mg PO Q6H PRN Quetiapine (Quetiapine Fumarate) 300 Mg Tab 300 Mg PO 1QAM AND 2 QHS Klonopin (Clonazepam) 1 Mg Tab 2 Mg PO 7AM,12PM AND 7PM Synthroid (Levothyroxine Sodium) 75 Mcg Tab 75 Mcg PO DAILY@0600 Reported Abilify (Aripiprazole) 15 Mg Tab 15 Mg PO BID Catapres (Clonidine) 0.2 Mg Tab 0.2 Mg PO BID Gabapentin 800 Mg Tab 800 Mg PO TID Hydroxyzine HCl 50 Mg Tab 100 Mg PO HS Lexapro (Escitalopram Oxalate) 5 Mg Tab 5 Mg PO DAILY Olanzapine 5 Mg Tab 5 Mg PO BID Topamax (Topiramate) 100 Mg Tab 300 Mg PO BID Zyrtec (Cetirizine HCl) 10 Mg Tablet 10 Mg PO DAILY PRN Vitamin D3 (Cholecalciferol) 2,000 Unit Cap 4,000 Units PO DAILY Nodolor 325-65-100 mg (Isometheptene-Dichloralphenazo) 1 Cap Cap 2 Cap PO AT ONSET OF HEADACHE PRN Fludrocortisone (Fludrocortisone Acetate) 0.1 Mg Tab 0.1 Mg PO BID Zofran (Ondansetron HCl) 4 Mg Tab 4 Mg PO Q6HR PRN Omeprazole 40 Mg Cap 40 Mg PO BID Mobic (Meloxicam) 7.5 Mg Tab 7.5 Mg PO DAILY Gaviscon Extra Strength (Aluminum Hydroxide-Mag Carb) 160-105 mg Chew 2 Tab CHEW HS Maximum 16 tabs/24 hrs. Review of Systems ROS Limitations: Poor Historian Physical Exam Narrative GENERAL: Well-nourished, well-developed patient. SKIN: Warm and dry. HEAD: Normocephalic and atraumatic. EYES: No scleral icterus. No injection or drainage. ENT: No nasal drainage noted. Mucous membranes pink. Airway patent. NECK: Supple, trachea midline. Moves head freely without obvious discomfort. CARDIOVASCULAR: Regular rate and rhythm without murmurs, gallops, or rubs. RESPIRATORY: Breath sounds equal bilaterally. No accessory muscle use. GASTROINTESTINAL: Abdomen soft, non-tender, nondistended. EXTREMITIES: No cyanosis or edema. BACK: Nontender without obvious deformity. No CVA tenderness. NEURO: Patient is alert and oriented. no sensorimotor deficits. Nonfocal. Normal speech. PSYCH: No hallucinations or active delusions. Poor insight and judgment. Data Data Last Documented VS Vital Signs Date Time Temp Pulse Resp B/P Pulse Ox O2 Delivery O2 Flow Rate FiO2 04/24/17 21:06 98.6 104 18 151/90 98 MDM Medical Decision Making Medical Screen Exam Complete: Yes Emergency Medical Condition: Yes Medical Record Reviewed: Yes Differential Diagnosis MDM: High Differential diagnoses: Schizophrenia, schizoaffective disorder, bipolar, anxiety, depression, adjustment reaction, mood disorder NOS, ODD, depressive disorder NOS, dementia, dementia with agitation, psychosis NOS, substance induced mood disorder, intermittent explosive disorder, Asperger syndrome, infection,electrolyte abnormality, malingering. Narrative Course Mental health screening discussed with the patient. Psychiatric screen ordered. The patient has been medically cleared. The patient was just seen in the hospital within the past week. I do not see any need to repeat any laboratory testing at this point. This appears to be more of a behavioral problem. Diagnosis Primary Impression: Medical clearance for psychiatric admission Condition: Stable Modesto Ayon Apr 24, 2017 21:32
[2017-04-24 22:34] VITALS: BP 127/77; PULSE 89; RESP 18; TEMP 97.3; O2SAT 97
[2017-04-25 02:09] VITALS: BP 102/58; PULSE 97; RESP 18; TEMP 97.5; O2SAT 97
[2017-04-25 06:18] VITALS: BP 134/77; PULSE 70; RESP 18
[2017-04-25 09:21] VITALS: BP 142/77; PULSE 71; RESP 18; O2SAT 99
--- NOTE | 2017-04-25 10:00 | PD ---
History of Present Illness Chief Complaint: Psychiatric Symptoms Time Seen by Provider: 09:00 Travel History International Travel<30 Days: No Contact w/Intl Traveler<30days: No Known affected area: No Legal Status Legal Status: Fuentes Act Fuentes Act Signed By: Noah Montemayor History of Present Illness: This is a 21-year-old male with a history of intermittent explosive disorder and autism spectrum disorder. The patient is well known to this physician and I treat him on an outpatient basis. Apparently the patient was Fuentes acted by police yesterday after he was violent towards his mother and threatened to throw himself down the stairs. It appears his mother medicated him prior to his arrival at the emergency department because the patient was described by the nurse, Laurie, to this physician as sedated. No emergency department medications were administered yesterday and this morning this physician interviewed the patient. At this time, the patient is being mostly nonverbal but does state he wants to go home. He also states he will not fight staff members or family members regarding getting in his mother's vehicle, as he has in the past. As this physician has treated the patient for a number of months now, the patient's violence and impulsivity is well known. However, this physician has adjusted the patient's medicines accordingly and this has been the best he has done over the last 2-3 years. This physician will also schedule a follow up appointment 2 days from now, on an outpatient basis. Further medication adjustment may be needed by that time. The patient does not do well in a hospital setting, often becoming more violent and endangering himself as well as other patients. This physician has discussed future placement options with the patient's mother but this remains a significantly long process, most likely requiring a Medicaid waiver. Therefore, despite the ongoing risks of impulsive violence posed by the patient, at this time, least restrictive alternative implies outpatient treatment. PFSH Past Medical History ADHD: No Arthritis: Yes (JRA) Asthma: Yes Autoimmune Disease: Yes (decreased IGA, ?JRA, MEN1) Blood Disorders: No Bipolar Disorder: Yes Anxiety: No Depression: No Cardiovascular Problems: Yes (DISAUTONOMIA) Chemotherapy: No Chest Pain: No Congestive Heart Failure: No COPD: No Cerebrovascular Accident: No Developmental Delay: Yes Diminished Hearing: No Endocrine: Yes Gastrointestinal Disorders: Yes ( INTERMITTENT REFLUX, GERD) GERD: Yes Genitourinary: No Hepatitis: No Hiatal Hernia: No Heparin Induced Thrombocytopen: No Hypertension: No Immune Disorder: Yes (JRA) Implanted Vascular Access Dvce: Yes (PEG TUBE/INFUSA PORT) Medical other: Yes (MITROCHONDRIAL COMPLEX 1, , SPASTIC PARAPALEGIC, DYSAUTOMONY, MEN 1) Musculoskeletal: Yes (MITOCHONDRIAL COMPLEX 1) Neurologic: Yes (AUTISTIC,SEIZURES) Psychiatric: No Reproductive: No Respiratory: Yes (IGA DEFICIENCY) Immunizations Current: Yes Migraines: Yes Radiation Therapy: No Renal Failure: No Seizures: Yes ( ) Sickle Cell Disease: No Sleep Apnea: No Thyroid Disease: Yes Ulcer: No Tetanus Vaccination: > 5 Years Influenza Vaccination: Yes Past Surgical History Abdominal Surgery: Yes (G TUBE X2) AICD: No Body Medical Devices: peg tube Cardiac Surgery: No Ear Surgery: No Endocrine Surgery: No Eye Surgery: No Genitourinary Surgery: No Gynecologic Surgery: No Insulin Pump: No Joint Replacement: No Neurologic Surgery: No Oral Surgery: Yes (T&A) Pacemaker: No Thoracic Surgery: No Tonsillectomy: Yes Tympanostomy Tube: Yes (X2) Other Surgery: Yes (RHINOPLASTY) Psychiatric History Psychiatric History Hx Psychiatric Treatment: patient has extensive psych history, including previous admission to [facility]. DIAGNOSED WITH AUTISM. LAST ADMISSION HERE WAS December TO December History of Inpatient Treatment: Yes Guns or firearms in home: No Social History Hx Alcohol Use: No Hx Tobacco Use: No Hx Substance Use: No Hx of Substance Use Treatment: No Allergies-Medications (Allergen,Severity, Reaction): Coded Allergies: Ceftin (Verified Allergy, Severe, RASH, 04/24/17) Per Mom. Latex (Verified Allergy, Severe, itching, 04/24/17) TONGUE ITCHES Per Mom. Trileptal (Verified Allergy, Severe, NEURO TOXIC, 04/24/17) Per Mom. Reported Meds & Prescriptions Reported Meds & Active Scripts Active Kapvay ER 12 HR (Clonidine HCl) 0.1 Mg Tab 0.1 Mg PO 2 Q7AM,2 Q7PM Ativan (Lorazepam) 2 Mg Tab 2 Mg PO Q6H PRN Quetiapine (Quetiapine Fumarate) 300 Mg Tab 300 Mg PO 1QAM AND 2 QHS Klonopin (Clonazepam) 1 Mg Tab 2 Mg PO 7AM,12PM AND 7PM Synthroid (Levothyroxine Sodium) 75 Mcg Tab 75 Mcg PO DAILY@0600 Reported Abilify (Aripiprazole) 15 Mg Tab 15 Mg PO BID Catapres (Clonidine) 0.2 Mg Tab 0.2 Mg PO BID Gabapentin 800 Mg Tab 800 Mg PO TID Hydroxyzine HCl 50 Mg Tab 100 Mg PO HS Lexapro (Escitalopram Oxalate) 5 Mg Tab 5 Mg PO DAILY Olanzapine 5 Mg Tab 5 Mg PO BID Topamax (Topiramate) 100 Mg Tab 300 Mg PO BID Zyrtec (Cetirizine HCl) 10 Mg Tablet 10 Mg PO DAILY PRN Vitamin D3 (Cholecalciferol) 2,000 Unit Cap 4,000 Units PO DAILY Nodolor 325-65-100 mg (Isometheptene-Dichloralphenazo) 1 Cap Cap 2 Cap PO AT ONSET OF HEADACHE PRN Fludrocortisone (Fludrocortisone Acetate) 0.1 Mg Tab 0.1 Mg PO BID Zofran (Ondansetron HCl) 4 Mg Tab 4 Mg PO Q6HR PRN Omeprazole 40 Mg Cap 40 Mg PO BID Mobic (Meloxicam) 7.5 Mg Tab 7.5 Mg PO DAILY Gaviscon Extra Strength (Aluminum Hydroxide-Mag Carb) 160-105 mg Chew 2 Tab CHEW HS Maximum 16 tabs/24 hrs. Review of Systems Except as stated in HPI: all other systems reviewed are Neg Exam Exam Limitations: Clinical Condition, Poor Historian Alert: Yes [place]: Person, Place Mood: Calm Affect: Restricted Eye Contact: Indirect Memory Intact: Immediate Insight/Judgement Impaired but baseline. MDM Medical Decision Making Medical Record Reviewed: Yes Assessment/Plan Patient's record was reviewed and this case was discussed with the nurse last night as well as the nurse this morning. Patient remains at significantly high risk for aggression towards himself and others. However, this is felt to be unavoidable given his fundamental cognitive and emotional limitations. Hospitalization has not been helpful in the past and medication management appears to be the best option for trying to stabilize the patient. Therefore, this physician will establish a follow up appointment this Tuesday and ascertain the need for any further medication changes. Orders Psych Screen (04/24/17 22:28) Diet Regular Basic (04/25/17 Breakfast) Diet Regular Basic (04/25/17 Lunch) Results Vital Signs Date Time Temp Pulse Resp B/P Pulse Ox O2 Delivery O2 Flow Rate FiO2 04/25/17 09:21 71 18 142/77 99 Room Air 04/25/17 06:18 70 18 134/77 04/25/17 02:09 97.5 97 18 102/58 97 Room Air 04/24/17 22:34 97.3 89 18 127/77 97 Room Air 04/24/17 21:06 98.6 104 18 151/90 98 Diagnosis Primary Impression: Intermittent explosive disorder in adult Additional Impression: Autism spectrum disorder Condition: Stable Problem Qualifiers Wilberto Szymanski MD Apr 25, 2017 09:59
[2017-04-25 12:29] VITALS: BP_SYST 10; BP_SYST 100; BP_DIAS 55; PULSE 87; RESP 18; O2SAT 98
[2017-04-27] MEDS ORDERED: GABA800T PO (15:30)
[2017-04-27] MEDS ORDERED: CLON1 PO (15:30)
[2017-04-27] MEDS ORDERED: TOPA100T11 PO (15:30)
[2017-04-27] MEDS ORDERED: QUET1TAB10 PO (15:34)
[2017-04-27] MEDS ORDERED: ABIL15TA2 PO (15:34)
[2017-04-27] MEDS ORDERED: LORA-475 PO (15:34)
[2017-04-27] MEDS ORDERED: [UNRECOGNIZED DRUG - CODE] PO ×2 (15:34→15:40)
[2017-04-29] MEDS ORDERED: ARIP1TAB7 PO ×2 (13:47→13:48)
[2017-04-29] MEDS ORDERED: SERO300T PO (14:07)
[2017-05-02] MEDS ORDERED: SERO300T PO ×2 (09:54→10:39)
[2017-05-02] MEDS ORDERED: CHLO200T5 PO ×2 (16:32→16:34)
[2017-05-18] MEDS ORDERED: CLON1 PO (15:21)
[2017-05-18] MEDS ORDERED: GABA800T PO (15:21)
[2017-05-18] MEDS ORDERED: LORA-475 PO (15:22)
[2017-05-18] MEDS ORDERED: CHLO200T5 PO (15:25)
[2017-05-18] MEDS ORDERED: SERO300T PO (15:25)
== END 2017-04-25 12:38 | disposition home or self-care (01) ==
LOC: NEPD 20:46 → NEPJ 04-25 12:38
DX: F63.81 Intermittent explosive disorder (principal); F84.0 Autistic disorder
CPT/HCPCS: 99284

== ENCOUNTER 2017-04-30 03:55 | Emergency (ER) | payer BC, OTHER ==
[~2017-04-30] VITALS: Ht 190.5 cm; Wt 115.0 kg
[~2017-04-30 03:55] MED LIST changes: -ABIL15TA2 PO; +ARIP1TAB7 PO
[2017-04-30 04:08] VITALS: BP 160/79; PULSE 113; RESP 18; TEMP 98.1; O2SAT 97
--- NOTE | 2017-04-30 04:09 | PD ---
HPI Chief Complaint: altered mental status Time Seen by Provider: 04:06 Travel History International Travel<30 days: No Contact w/Intl Traveler<30days: No Traveled to known affect area: No History of Present Illness HPI 21-year-old male with history of autism and well-known to the department was brought in by EMS after he was found unresponsive on the front steps of [facility]. Currently patient is fully awake. He is back to his baseline. He is on significant amount of medications including benzos. He is talking and answering questions. He is tachycardic on the monitor. [facility] Past Medical History Narrative Medical List of his past medical, surgical, social and family history as reviewed from the nursing note. ADHD: No Arthritis: Yes (JRA) Asthma: Yes Autoimmune Disease: Yes (decreased IGA, ?JRA, MEN1) Blood Disorders: No Bipolar Disorder: Yes Anxiety: No Depression: No Cardiovascular Problems: Yes (DISAUTONOMIA) Chemotherapy: No Chest Pain: No Congestive Heart Failure: No COPD: No Cerebrovascular Accident: No Developmental Delay: Yes Diminished Hearing: No Endocrine: Yes Gastrointestinal Disorders: Yes ( INTERMITTENT REFLUX, GERD) GERD: Yes Genitourinary: No Hepatitis: No Hiatal Hernia: No Heparin Induced Thrombocytopen: No Hypertension: No Immune Disorder: Yes (JRA) Implanted Vascular Access Dvce: Yes (PEG TUBE/INFUSA PORT) Musculoskeletal: Yes (MITOCHONDRIAL COMPLEX 1) Neurologic: Yes (AUTISTIC,SEIZURES) Psychiatric: No Reproductive: No Respiratory: Yes (IGA DEFICIENCY) Immunizations Current: Yes Migraines: Yes Radiation Therapy: No Renal Failure: No Seizures: Yes ( ) Sickle Cell Disease: No Sleep Apnea: No Thyroid Disease: Yes Ulcer: No Past Surgical History Abdominal Surgery: Yes (G TUBE X2) AICD: No Body Medical Devices: peg tube Cardiac Surgery: No Ear Surgery: No Endocrine Surgery: No Eye Surgery: No Genitourinary Surgery: No Gynecologic Surgery: No Insulin Pump: No Joint Replacement: No Neurologic Surgery: No Oral Surgery: Yes (T&A) Pacemaker: No Thoracic Surgery: No Tonsillectomy: Yes Tympanostomy Tube: Yes (X2) Other Surgery: Yes (RHINOPLASTY) Social History Alcohol Use: No Tobacco Use: No Substance Use: No Allergies-Medications (Allergen,Severity, Reaction): Coded Allergies: cefuroxime (Verified Allergy, Severe, RASH, 04/27/17) Per Mom. latex (Verified Allergy, Severe, itching, 04/27/17) TONGUE ITCHES Per Mom. oxcarbazepine (Verified Allergy, Severe, NEURO TOXIC, 04/27/17) Per Mom. Comments List of his allergies reviewed from the nursing note. Reported Meds & Prescriptions Reported Meds & Active Scripts Active Chlorpromazine (Chlorpromazine HCl) 200 Mg Tab 200 Mg PO 1 1/2 HS 30 Days Seroquel (Quetiapine Fumarate) 300 Mg Tab 300 Mg PO TWO BID, ONE HS Seroquel (Quetiapine Fumarate) 300 Mg Tab 300 Mg PO BID Abilify (Aripiprazole) 20 Mg Tab 20 Mg PO 1/2 TAB BID Kapvay ER 12 HR (Clonidine HCl) 0.1 Mg Tab 0.1 Mg PO 2 Q7AM,2PM,7PM Ativan (Lorazepam) 2 Mg Tab 2 Mg PO Q4HR PRN Quetiapine (Quetiapine Fumarate) 300 Mg Tab 300 Mg PO 2 PO BID Gabapentin 800 Mg Tab 800 Mg PO TID Topamax (Topiramate) 100 Mg Tab 300 Mg PO BID Klonopin (Clonazepam) 1 Mg Tab 2 Mg PO 7AM,12PM AND 7PM Synthroid (Levothyroxine Sodium) 75 Mcg Tab 75 Mcg PO DAILY@0600 Reported Catapres (Clonidine) 0.2 Mg Tab 0.2 Mg PO BID Hydroxyzine HCl 50 Mg Tab 100 Mg PO HS Lexapro (Escitalopram Oxalate) 5 Mg Tab 5 Mg PO DAILY Olanzapine 5 Mg Tab 5 Mg PO BID Zyrtec (Cetirizine HCl) 10 Mg Tablet 10 Mg PO DAILY PRN Vitamin D3 (Cholecalciferol) 2,000 Unit Cap 4,000 Units PO DAILY Nodolor 325-65-100 mg (Isometheptene-Dichloralphenazo) 1 Cap Cap 2 Cap PO AT ONSET OF HEADACHE PRN Fludrocortisone (Fludrocortisone Acetate) 0.1 Mg Tab 0.1 Mg PO BID Zofran (Ondansetron HCl) 4 Mg Tab 4 Mg PO Q6HR PRN Omeprazole 40 Mg Cap 40 Mg PO BID Mobic (Meloxicam) 7.5 Mg Tab 7.5 Mg PO DAILY Gaviscon Extra Strength (Aluminum Hydroxide-Mag Carb) 160-105 mg Chew 2 Tab CHEW HS Maximum 16 tabs/24 hrs. Narrative Medication List of his home medications reviewed from the nursing note. Review of Systems Except as stated in HPI: all other systems reviewed are Neg Physical Exam Narrative GENERAL: Awake, alert, mental retardation, obese SKIN: Focused skin assessment warm/dry. HEAD: Atraumatic. Normocephalic. EYES: Pupils equal and round. No scleral icterus. No injection or drainage. ENT: No nasal bleeding or discharge. Mucous membranes pink and moist. High arch palate, poor dentition, noisy mouth breathing NECK: Trachea midline. No JVD. CARDIOVASCULAR: Regular rate and rhythm. No murmur appreciated. RESPIRATORY: No accessory muscle use. Clear to auscultation. Breath sounds equal bilaterally. GASTROINTESTINAL: Abdomen soft, non-tender, nondistended. Hepatic and splenic margins not palpable. MUSCULOSKELETAL: No obvious deformities. No clubbing. No cyanosis. No edema. NEUROLOGICAL: Awake and alert. No obvious cranial nerve deficits. Motor grossly within normal limits. Normal speech. PSYCHIATRIC: Appropriate mood and affect; insight and judgment normal. Data Data Last Documented VS Vital Signs Date Time Temp Pulse Resp B/P (MAP) Pulse Ox O2 Delivery O2 Flow Rate FiO2 04/30/17 09:00 109 16 148/84 (105) 99 Room Air Orders Orders Electrocardiogram (04/30/17 ) Blood Glucose (04/30/17 04:30) Ct Brain W/O Iv Contrast(Rout) (04/30/17 ) Psych Screen (04/30/17 05:28) Diet Regular Basic (04/30/17 Breakfast) MDM Medical Decision Making Medical Screen Exam Complete: Yes Emergency Medical Condition: Yes Medical Record Reviewed: Yes Interpretation(s) Twelve-lead EKG was reviewed by me. Normal sinus rhythm, right axis deviation, tachycardia, nonspecific ST-T wave changes. Heart rate of 115 bpm. Differential Diagnosis Narcolepsy, syncopal episode, intracranial bleed, hypoglycemia Narrative Course 4:44 AM patient has had tachycardia multiple times in the past during his previous visits. I've asked the nurse to do a blood glucose level. I will order a head CT. If that's within normal limit patient will be medically cleared. 5:[address] head is within normal limit. BGL was 119. I'm comfortable medically clearing him. He will require psych screen. Procedures EKG Prior to Arrival: No Scripts Quetiapine (Seroquel) 300 Mg Tab 300 MG PO BID for Agitation, #10 TAB 0 Refills Prov: Stephanie Bonds 04/30/17 Jayden Valerio MD Apr 30, 2017 04:09
--- NOTE | 2017-04-30 05:26 | RADRPT ---
EXAM DATE/TIME: 04/30/2017 04:54 [place] COMPARISON: CT BRAIN W/O CONTRAST, April 19, 2017, 7:47. INDICATIONS : Altered mental status. RADIATION DOSE: 40.63 CTDIvol (mGy) MEDICAL HISTORY : Non-responsive. SURGICAL HISTORY : Non-responsive. ENCOUNTER: Initial ACUITY: 1 day PAIN SCALE: Non-responsive LOCATION: cranial TECHNIQUE: Multiple contiguous axial images were obtained of the head. Using automated exposure control and adj ustment of the mA and/or kV according to patient size, radiation dose was kept as low as reasonably a chievable to obtain optimal diagnostic quality images. DICOM format image data is available electro nically for review and comparison. FINDINGS: CEREBRUM: The ventricles are normal for age. No evidence of midline shift, mass lesion, hemorrhage or acute in farction. No extra-axial fluid collections are seen. POSTERIOR FOSSA: The cerebellum and brainstem are intact. The 4th ventricle is midline. The cerebellopontine angle i s unremarkable. EXTRACRANIAL: The visualized portion of the orbits is intact. SKULL: The calvaria is intact. No evidence of skull fracture. CONCLUSION: Normal examination. Modesto Issa MD on April 30, 2017 at 5:23 Board Certified Radiologist. This report was verified electronically.
[2017-04-30 09:00] VITALS: BP 148/84; PULSE 109; RESP 16; O2SAT 99
--- NOTE | 2017-04-30 11:12 | PD ---
History of Present Illness Chief Complaint: Medical Clearance Time Seen by Provider: 11:05 Travel History International Travel<30 Days: No Contact w/Intl Traveler<30days: No Known affected area: No History of Present Illness: History of Present Illness HPI 21-year-old male with history of autism spectrum disorder as well as intermittent explosive disorder well-known to [facility] with multiple visits to the Ed . The patient is followed on outpatient basis by Dr. Wilberto Szymanski who has been adjusting his psychiatric medications. He was brought in by EMS after allegedly he was found unresponsive on the front steps of [facility]. Patient arrived to ED and he was awake and alert. He was evaluated and medically cleared. CT scan of the head was obtained and it was normal. The patient is seen in main Ed. he is resting comfortably in his bed. he is calm. He states that he feels well and " I want to go home". He denies any other further episodes of " passing out". Historically he will throw himself on the floor and not respond to verbal stimuli as a behavior and not due to a medical cause. . TC to mother Koki at [phone]. She reports that he was fine until 1; 30 am and then after she went to sleep he walked over to the police station and " set himself down on the entrance to the police station". She is concerned regarding the Seroquel since she is out and needs a prior authorization completed. . I will provide a small Rx to cover until Tuesday. [facility] Past Medical History ADHD: No Arthritis: Yes (JRA) Asthma: Yes Autoimmune Disease: Yes (decreased IGA, ?JRA, MEN1) Blood Disorders: No Bipolar Disorder: Yes Weight (Kg): 3 Anxiety: No Depression: No Cardiovascular Problems: Yes (DISAUTONOMIA) Chemotherapy: No Chest Pain: No Congestive Heart Failure: No COPD: No Cerebrovascular Accident: No Developmental Delay: Yes Diminished Hearing: No Endocrine: Yes Gastrointestinal Disorders: Yes ( INTERMITTENT REFLUX, GERD) GERD: Yes Genitourinary: No Hepatitis: No Hiatal Hernia: No Heparin Induced Thrombocytopen: No Hypertension: No Immune Disorder: Yes (JRA) Implanted Vascular Access Dvce: Yes (PEG TUBE/INFUSA PORT) Medical other: Yes (MITROCHONDRIAL COMPLEX 1, , SPASTIC PARAPALEGIC, DYSAUTOMONY, MEN 1) Musculoskeletal: Yes (MITOCHONDRIAL COMPLEX 1) Neurologic: Yes (AUTISTIC,SEIZURES) Psychiatric: No Reproductive: No Respiratory: Yes (IGA DEFICIENCY) Immunizations Current: Yes Migraines: Yes Radiation Therapy: No Renal Failure: No Seizures: Yes ( ) Sickle Cell Disease: No Sleep Apnea: No Thyroid Disease: Yes Ulcer: No Past Surgical History Abdominal Surgery: Yes (G TUBE X2) AICD: No Body Medical Devices: peg tube Cardiac Surgery: No Ear Surgery: No Endocrine Surgery: No Eye Surgery: No Genitourinary Surgery: No Gynecologic Surgery: No Insulin Pump: No Joint Replacement: No Neurologic Surgery: No Oral Surgery: Yes (T&A) Pacemaker: No Thoracic Surgery: No Tonsillectomy: Yes Tympanostomy Tube: Yes (X2) Other Surgery: Yes (RHINOPLASTY) Psychiatric History Psychiatric History Hx Psychiatric Treatment: patient has extensive psych history, including previous admission to [place] [facility] [place]. DIAGNOSED WITH AUTISM. LAST ADMISSION HERE WAS December TO December History of Inpatient Treatment: Yes Guns or firearms in home: No Social History Single male.Lives with mother and father and sister. Hx Alcohol Use: No Hx Tobacco Use: No Hx Substance Use: No Hx of Substance Use Treatment: No Family Psychiatric History Negative Allergies-Medications (Allergen,Severity, Reaction): Coded Allergies: cefuroxime (Verified Allergy, Severe, RASH, 04/27/17) Per Mom. latex (Verified Allergy, Severe, itching, 04/27/17) TONGUE ITCHES Per Mom. oxcarbazepine (Verified Allergy, Severe, NEURO TOXIC, 04/27/17) Per Mom. Reported Meds & Prescriptions Reported Meds & Active Scripts Active Abilify (Aripiprazole) 20 Mg Tab 20 Mg PO 1/2 TAB BID Kapvay ER 12 HR (Clonidine HCl) 0.1 Mg Tab 0.1 Mg PO 2 Q7AM,2PM,7PM Ativan (Lorazepam) 2 Mg Tab 2 Mg PO Q4HR PRN Quetiapine (Quetiapine Fumarate) 300 Mg Tab 300 Mg PO 2 PO BID Gabapentin 800 Mg Tab 800 Mg PO TID Topamax (Topiramate) 100 Mg Tab 300 Mg PO BID Klonopin (Clonazepam) 1 Mg Tab 2 Mg PO 7AM,12PM AND 7PM Synthroid (Levothyroxine Sodium) 75 Mcg Tab 75 Mcg PO DAILY@0600 Reported Catapres (Clonidine) 0.2 Mg Tab 0.2 Mg PO BID Hydroxyzine HCl 50 Mg Tab 100 Mg PO HS Lexapro (Escitalopram Oxalate) 5 Mg Tab 5 Mg PO DAILY Olanzapine 5 Mg Tab 5 Mg PO BID Zyrtec (Cetirizine HCl) 10 Mg Tablet 10 Mg PO DAILY PRN Vitamin D3 (Cholecalciferol) 2,000 Unit Cap 4,000 Units PO DAILY Nodolor 325-65-100 mg (Isometheptene-Dichloralphenazo) 1 Cap Cap 2 Cap PO AT ONSET OF HEADACHE PRN Fludrocortisone (Fludrocortisone Acetate) 0.1 Mg Tab 0.1 Mg PO BID Zofran (Ondansetron HCl) 4 Mg Tab 4 Mg PO Q6HR PRN Omeprazole 40 Mg Cap 40 Mg PO BID Mobic (Meloxicam) 7.5 Mg Tab 7.5 Mg PO DAILY Gaviscon Extra Strength (Aluminum Hydroxide-Mag Carb) 160-105 mg Chew 2 Tab CHEW HS Maximum 16 tabs/24 hrs. Review of Systems Except as stated in HPI: all other systems reviewed are Neg Exam Alert: Yes [place]: Person (ox4) Mood: Calm Affect: Appropriate Speech: Clear (slurred quality) Eye Contact: Normal Memory Intact: Comment (Not formally tetsed) Hallucinations: Other (negative) Delusions: No Suicidal: Ideation (negative) Homicidal: Ideation (negative) Insight/Judgement Poor. Poor MDM Medical Decision Making Medical Record Reviewed: Yes Assessment/Plan 21-year-old male with history of autism spectrum disorder as well as intermittent explosive disorder well-known to [facility] with multiple visits to the Ed . He was brought in by EMS after allegedly he was found unresponsive [place] [facility]. He has presented no behavioral concerns since being here in ED and has been medically cleared. the patient does not meet criteria for admission to psychiatry at this time. Mother will pick him up once he is discharged. Cleared for discharge from psychiatry. Follow up with Dr. Wilberto Szymanski. Orders Electrocardiogram (04/30/17 ) Blood Glucose (04/30/17 04:30) Ct Brain W/O Iv Contrast(Rout) (04/30/17 ) Psych Screen (04/30/17 05:28) Diet Regular Basic (04/30/17 Breakfast) Results Vital Signs Date Time Temp Pulse Resp B/P Pulse Ox O2 Delivery O2 Flow Rate FiO2 04/30/17 09:00 109 16 148/84 99 Room Air 04/30/17 04:22 18 04/30/17 04:08 98.1 113 18 160/79 97 Diagnosis Primary Impression: Autism spectrum disorder Psychiatrically Cleared: Yes Med/ Other Pt Specific Info: Prescription(s) given Prescriptions Quetiapine (Seroquel)300 Mg Prv772 Mg PO BID #10 TAB Ref 0 Prov:Stephanie Bonds 04/30/17 Disposition: 01 DISCHARGE HOME Condition: Stable Stephanie Bonds Apr 30, 2017 11:12
[2017-04-30] MEDS ORDERED: SERO300T PO (11:30)
--- NOTE | 2017-04-30 14:59 | EKG ---
Date Performed: 04/30/2017 Time Performed: 04:19:27 PTAGE: 21 years EKG: SINUS TACHYCARDIA OTHERWISE WITHIN NORMAL LIMITS Compared to previous tracing, ST-T changes have improved. Smal inferior Q-waves of undetermined signficance are present. ABNORMAL RHYTHM ECG PREVIOUS TRACING : 04/19/2017 07.05 DOCTOR: Wilberto Maciel Interpretating Date/Time 04/30/2017 14:58:36
[2017-05-02] MEDS ORDERED: SERO300T PO ×2 (09:54→10:39)
[2017-05-02] MEDS ORDERED: CHLO200T5 PO ×2 (16:32→16:34)
[2017-05-18] MEDS ORDERED: CLON1 PO (15:21)
[2017-05-18] MEDS ORDERED: GABA800T PO (15:21)
[2017-05-18] MEDS ORDERED: LORA-475 PO (15:22)
[2017-05-18] MEDS ORDERED: SERO300T PO (15:25)
[2017-05-18] MEDS ORDERED: CHLO200T5 PO (15:25)
== END 2017-04-30 12:41 | disposition home or self-care (01) ==
LOC: NED 03:55 → NEPE 12:41
DX: R45.1 Restlessness and agitation (principal); F84.0 Autistic disorder; R94.31 Abnormal electrocardiogram [ECG] [EKG]; R56.9 Unspecified convulsions
CPT/HCPCS: 70450; 93005; 99284

== ENCOUNTER 2017-05-09 04:45 | Emergency (ER) | payer BC, OTHER ==
[~2017-05-09] VITALS: Ht 193 cm; Wt 125.0 kg
[~2017-05-09 04:45] MED LIST changes: +CHLO200T5 PO; +SERO300T PO
[2017-05-09 04:50] VITALS: RESP 30; O2SAT 98
[2017-05-09 05:03] VITALS: BP 141/70; PULSE 120; RESP 30; TEMP 98.4; O2SAT 94
--- NOTE | 2017-05-09 05:12 | PD ---
HPI Chief Complaint: Respiratory Symptoms Time Seen by Provider: 04:59 Travel History International Travel<30 days: No Contact w/Intl Traveler<30days: No Traveled to known affect area: No History of Present Illness HPI 21-year-old male was brought in by mom and fsr for shortness of breath. 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 Patient was found by fsr and mom this evening with shortness of breath. Patient complaining of sore throat. Patient denies any headache. Patient denies any chest pain. Patient complains of shortness of breath. Patient denies abdominal pain. Patient denies any fever chills. Patient has PEG tube an [id number] in place. PFSH Past Medical History ADHD: No Arthritis: Yes (JRA) Asthma: Yes Autoimmune Disease: Yes (decreased IGA, ?JRA, MEN1) Blood Disorders: No Bipolar Disorder: Yes Anxiety: No Depression: No Cardiovascular Problems: Yes (DISAUTONOMIA) Chemotherapy: No Chest Pain: No Congestive Heart Failure: No COPD: No Cerebrovascular Accident: No Developmental Delay: Yes Diminished Hearing: No Endocrine: Yes Gastrointestinal Disorders: Yes ( INTERMITTENT REFLUX, GERD) GERD: Yes Genitourinary: No Hepatitis: No Hiatal Hernia: No Heparin Induced Thrombocytopen: No Hypertension: No Immune Disorder: Yes (JRA) Implanted Vascular Access Dvce: Yes (PEG TUBE/INFUSA PORT) Musculoskeletal: Yes (MITOCHONDRIAL COMPLEX 1) Neurologic: Yes (AUTISTIC,SEIZURES) Psychiatric: No Reproductive: No Respiratory: Yes (IGA DEFICIENCY) Immunizations Current: Yes Migraines: Yes Radiation Therapy: No Renal Failure: No Seizures: Yes ( ) Sickle Cell Disease: No Sleep Apnea: No Thyroid Disease: Yes Ulcer: No Past Surgical History Abdominal Surgery: Yes (G TUBE X2) AICD: No Body Medical Devices: peg tube Cardiac Surgery: No Ear Surgery: No Endocrine Surgery: No Eye Surgery: No Genitourinary Surgery: No Gynecologic Surgery: No Insulin Pump: No Joint Replacement: No Neurologic Surgery: No Oral Surgery: Yes (T&A) Pacemaker: No Thoracic Surgery: No Tonsillectomy: Yes Tympanostomy Tube: Yes (X2) Other Surgery: Yes (RHINOPLASTY) Social History Alcohol Use: No Tobacco Use: No Substance Use: No Allergies-Medications (Allergen,Severity, Reaction): Coded Allergies: cefuroxime (Verified Allergy, Severe, RASH, 04/27/17) Per Mom. latex (Verified Allergy, Severe, itching, 04/27/17) TONGUE ITCHES Per Mom. oxcarbazepine (Verified Allergy, Severe, NEURO TOXIC, 04/27/17) Per Mom. Reported Meds & Prescriptions Reported Meds & Active Scripts Active Levaquin (Levofloxacin) 750 Mg Tablet 750 Mg PO DAILY Chlorpromazine (Chlorpromazine HCl) 200 Mg Tab 200 Mg PO 1 1/2 HS 30 Days Abilify (Aripiprazole) 20 Mg Tab 20 Mg PO 1/2 TAB BID Kapvay ER 12 HR (Clonidine HCl) 0.1 Mg Tab 0.1 Mg PO 2 Q7AM,2PM,7PM Ativan (Lorazepam) 2 Mg Tab 2 Mg PO Q4HR PRN Quetiapine (Quetiapine Fumarate) 300 Mg Tab 300 Mg PO 2 PO BID Gabapentin 800 Mg Tab 800 Mg PO TID Klonopin (Clonazepam) 1 Mg Tab 2 Mg PO 7AM,12PM AND 7PM Synthroid (Levothyroxine Sodium) 75 Mcg Tab 75 Mcg PO DAILY@0600 Reported Zyrtec (Cetirizine HCl) 10 Mg Tablet 10 Mg PO DAILY PRN Nodolor 325-65-100 mg (Isometheptene-Dichloralphenazo) 1 Cap Cap 2 Cap PO AT ONSET OF HEADACHE PRN Fludrocortisone (Fludrocortisone Acetate) 0.1 Mg Tab 0.1 Mg PO BID Zofran (Ondansetron HCl) 4 Mg Tab 4 Mg PO Q6HR PRN Omeprazole 40 Mg Cap 40 Mg PO BID Mobic (Meloxicam) 7.5 Mg Tab 7.5 Mg PO DAILY Gaviscon Extra Strength (Aluminum Hydroxide-Mag Carb) 160-105 mg Chew 2 Tab CHEW HS Maximum 16 tabs/24 hrs. Review of Systems General / Constitutional: No: Fever Eyes: No: Visual changes HENT: No: Headaches Cardiovascular: No: Chest Pain or Discomfort Respiratory: Positive: Shortness of Breath Gastrointestinal: No: Abdominal Pain Genitourinary: No: Dysuria Musculoskeletal: No: Pain Skin: No Rash Neurologic: No: Weakness Psychiatric: No: Depression Endocrine: No: Polydipsia Hematologic/Lymphatic: No: Easy Bruising Physical Exam Narrative GENERAL: Well-nourished, well-developed patient. SKIN: Focused skin assessment warm/dry. HEAD: Normocephalic. EYES: No scleral icterus. No injection or drainage. Pupils 2 mm equal reactive. NECK: Supple, trachea midline. No JVD or lymphadenopathy. CARDIOVASCULAR: Regular rate and rhythm without murmurs, gallops, or rubs. RESPIRATORY: Breath sounds equal bilaterally. No accessory muscle use. GASTROINTESTINAL: Abdomen soft, non-tender, nondistended. MUSCULOSKELETAL: No cyanosis, or edema. BACK: Nontender without obvious deformity. No CVA tenderness. Neurologic exam: Patient's awake and alert. Normal speech. Motor sensory grossly intact. Data Data Last Documented VS Vital Signs Date Time Temp Pulse Resp B/P (MAP) Pulse Ox O2 Delivery O2 Flow Rate FiO2 05/09/17 06:45 98.8 110 18 136/71 (92) 99 Nasal Cannula 4.00 Orders Orders Complete Blood Count With Diff (05/09/17 04:59) Comprehensive Metabolic Panel (05/09/17 04:59) Creatine Kinase (Cpk) (05/09/17 04:59) Troponin I (05/09/17 04:59) B-Type Natriuretic Peptide (05/09/17 04:59) Urinalysis - C+S If Indicated (05/09/17 04:59) Ammonia (05/09/17 04:59) Chest, Single Ap (05/09/17 04:59) Iv Access Insert/Monitor (05/09/17 04:59) Ecg Monitoring (05/09/17 04:59) Oxygen Administration (05/09/17 04:59) Oximetry (05/09/17 04:59) Lactic Acid (05/09/17 05:04) Blood Culture (05/09/17 05:04) Sodium Chlor 0.9% 1000 Ml Inj (Ns 1000 M (05/09/17 05:15) Labs Laboratory Tests Test 05/09/17 05:45 White Blood Count 12.4 TH/MM3 Red Blood Count 5.20 MIL/MM3 Hemoglobin 11.0 GM/DL Hematocrit 35.4 % Mean Corpuscular Volume 68.1 FL Mean Corpuscular Hemoglobin 21.1 PG Mean Corpuscular Hemoglobin Concent 31.0 % Red Cell Distribution Width 18.4 % Platelet Count 292 TH/MM3 Mean Platelet Volume 6.9 FL Neutrophils (%) (Auto) 83.7 % Lymphocytes (%) (Auto) 6.9 % Monocytes (%) (Auto) 3.5 % Eosinophils (%) (Auto) 4.7 % Basophils (%) (Auto) 1.2 % Neutrophils # (Auto) 10.4 TH/MM3 Lymphocytes # (Auto) 0.9 TH/MM3 Monocytes # (Auto) 0.4 TH/MM3 Eosinophils # (Auto) 0.6 TH/MM3 Basophils # (Auto) 0.1 TH/MM3 CBC Comment AUTO DIFF Differential Total Cells Counted 100 Neutrophils % (Manual) 71 % Band Neutrophils % 8 % Lymphocytes % 10 % Monocytes % 3 % Eosinophils % 5 % Basophils % 3 % Neutrophils # (Manual) 9.8 TH/MM3 Differential Comment FINAL DIFF MANUAL Platelet Estimate NORMAL Platelet Morphology Comment CLUMPED Blood Urea Nitrogen 12 MG/DL Creatinine 1.00 MG/DL Random Glucose 125 MG/DL Total Protein 7.3 GM/DL Albumin 3.4 GM/DL Calcium Level 8.5 MG/DL Alkaline Phosphatase 106 U/L Aspartate Amino Transf (AST/SGOT) 19 U/L Alanine Aminotransferase (ALT/SGPT) 27 U/L Total Bilirubin 0.3 MG/DL Sodium Level 139 MEQ/L Potassium Level 3.2 MEQ/L Chloride Level 106 MEQ/L Carbon Dioxide Level 23.0 MEQ/L Anion Gap 10 MEQ/L Estimat Glomerular Filtration Rate 96 ML/MIN Lactic Acid Level 1.8 mmol/L Ammonia 50 MCMOL/L Total Creatine Kinase 121 U/L Troponin I LESS THAN 0.02 NG/ML B-Type Natriuretic Peptide LESS THAN 2 PG/ML MDM Medical Decision Making Medical Screen Exam Complete: Yes Emergency Medical Condition: Yes Medical Record Reviewed: Yes Interpretation(s) Last Impressions Chest X-Ray 05/09/17 0459 Signed Impressions: Service Date/Time: Tuesday, May 09, 2017 06:04 - CONCLUSION: Hazy opacity in the left hemithorax could represent artifact secondary to underinflation and rotation. Alternatively, it could represent an interstitial or air space process. Consider followup with good inspiratory formal PA and lateral views of the chest. Jose David Roberts MD 6:53 AM. CBC WBC 12.4. Hemoglobin 11.0 hematocrit 35.4. MCV 60.1. 71 neutrophil. 8 bands. Potassium 3.2. Cardiac enzymes are normal. BNP less than 2. Lactic acid 1.8. Ammonia 50. Differential Diagnosis Differential diagnosis including side effect of medications, URI, bronchitis, pneumonia, PE, pneumothorax. Narrative Course 21-year-old male with multiple medical problems, complains of shortness of breath. Patient refused IV. Levaquin 750 mg by mouth given. Diagnosis Primary Impression: Bronchitis Patient Instructions: General Instructions Additional Instructions: Levaquin as directed. Follow-up with personal physician. Return if worse. Med/Other Pt SpecificInfo: Prescription(s) given Scripts Levofloxacin (Levaquin) 750 Mg Tablet 750 MG PO DAILY for Infection, #7 TAB 0 Refills Prov: Joaquín Frias MD 05/09/17 Disposition: 01 DISCHARGE HOME Condition: Stable Joaquín Frias MD May 09, 2017 05:12
[2017-05-09] MEDS ORDERED: SODIUM CHLOR 0.9% 1000 ML INJ 1,000 ML IV SCH (05:15)
[2017-05-09 06:07] LABS: AUTOMATED NEUTROPHIL # 10.4 TH/MM3 (1.8-7.7); BASOPHIL # 0.1 TH/MM3 (0-0.2); BASOPHIL % 1.2 % (0.0-2.0); EOSINOPHIL # 0.6 TH/MM3 (0-0.4); EOSINOPHIL % 4.7 % (0.0-4.0); HEMATOCRIT 35.4 % (39.0-51.0); LYMPH % 6.9 % (9.0-44.0); LYMPHOCYTE # 0.9 TH/MM3 (1.0-4.8); MEAN CELL VOLUME 68.1 FL (80.0-100.0); MEAN CORPUSCULAR HEMOGLOBIN 21.1 PG (27.0-34.0); MONO % 3.5 % (0.0-8.0); NEUT % 83.7 % (16.0-70.0); PLATELET COUNT 292 TH/MM3 (150-450); RED CELL DISTRIBUTION WIDTH 18.4 % (11.6-17.2); WHITE BLOOD COUNT 12.4 TH/MM3 (4.0-11.0)
[2017-05-09 06:08] LABS: HEMO FLAGS AUTO DIFF
--- NOTE | 2017-05-09 06:09 | RADRPT ---
EXAM DATE/TIME: 05/09/2017 06:04 [facility] COMPARISON: CHEST SINGLE AP, October 22, 2016, 15:56. INDICATIONS : Short of breath. MEDICAL HISTORY : None. SURGICAL HISTORY : None. ENCOUNTER: Initial ACUITY: 1 day PAIN SCORE: 7/10 LOCATION: Bilateral chest FINDINGS: Portable AP view of the chest demonstrates cardiac silhouette size at the upper limits or normal. Rig ht chest wall [id number] is present. Lungs are underinflated and the patient is slightly rotated. There is hazy opacity over the left hemithorax. No pleural effusion or pneumothorax is identified. Pablo kristy and soft tissues demonstrate no acute finding. CONCLUSION: Hazy opacity in the left hemithorax could represent artifact secondary to underinflation and rotation . Alternatively, it could represent an interstitial or air space process. Consider followup with good inspiratory formal PA and lateral views of the chest. Jose David Roberts MD on May 09, 2017 at 6:06 Board Certified Radiologist. This report was verified electronically.
[2017-05-09 06:14] LABS: CHLORIDE 106 MEQ/L (98-107); POTASSIUM 3.2 MEQ/L (3.5-5.1); SODIUM (NA) 139 MEQ/L (136-145)
[2017-05-09 06:18] LABS: ANION GAP 10 MEQ/L (5-15); BLOOD UREA NITROGEN 12 MG/DL (7-18)
[2017-05-09 06:21] LABS: ALT (GPT) 27 U/L (9-52); AST (GOT) 19 U/L (15-39); GLOMERULAR FILTRATION RATE 96 ML/MIN (>89)
[2017-05-09 06:22] LABS: TOTAL BILIRUBIN ADULT 0.3 MG/DL (0.2-1.0)
[2017-05-09 06:23] LABS: ALKALINE PHOSPHATASE 106 U/L (45-117); CREATINE KINASE 121 U/L (39-308)
[2017-05-09 06:45] VITALS: BP 136/71; PULSE 110; RESP 18; TEMP 98.8; O2SAT 99
[2017-05-09 06:49] LABS: BANDS 8 % (0-6); BASOPHILS 3 % (0-2); EOSINOPHILS 5 % (0-4); NEUTROPHIL # MANUAL DIFF 9.8 TH/MM3 (1.8-7.7); PLATELET ESTIMATE SMEAR NORMAL (NORMAL); PLATELET MORPHOLOGY CLUMPED (NORMAL); POLYS (SEG NEUTROPHILS) 71 % (16-70); SCAN/DIFF FINAL DIFF MANUAL; WBC DIFF SAMPLE 100
[2017-05-09] MEDS ORDERED: LEVA750T9 PO (07:00)
[2017-05-18] MEDS ORDERED: CLON1 PO (15:21)
[2017-05-18] MEDS ORDERED: GABA800T PO (15:21)
[2017-05-18] MEDS ORDERED: LORA-475 PO (15:22)
[2017-05-18] MEDS ORDERED: CHLO200T5 PO (15:25)
[2017-05-18] MEDS ORDERED: SERO300T PO (15:25)
== END 2017-05-09 07:18 | disposition home or self-care (01) ==
LOC: PHED 04:45
DX: J40 Bronchitis, not specified as acute or chronic (principal)
CPT/HCPCS: 71010; 80053; 82140; 82550; 83605; 83880; 84484; 85007; 85027; 87040; 99285

== ENCOUNTER 2017-05-11 09:52 | Emergency (ER) | payer BC, OTHER ==
[~2017-05-11] VITALS: Ht 193 cm; Wt 125.0 kg
[~2017-05-11 09:52] MED LIST changes: -CLON.2 PO; -HYDR50TA94 PO; +LEVA750T9 PO; -LEXA5TAB PO; -OLAN5TAB PO; -SERO300T PO; -TOPA100T11 PO; -VITA2000 PO
[2017-05-11 10:02] VITALS: BP 140/75; PULSE 85; RESP 16; TEMP 97.8; O2SAT 97
[2017-05-11] MEDS ORDERED: QUET1TAB10 PO (10:15)
[2017-05-11] MEDS ORDERED: QUET1TAB11 PO (10:15)
[2017-05-11] MEDS ORDERED: CLON-409 PO (10:15)
[2017-05-11] MEDS ORDERED: CHLO200T5 PO (10:15)
[2017-05-11] MEDS ORDERED: XIFA550T4 PO (10:16)
--- NOTE | 2017-05-11 10:29 | PD ---
HPI . Syncope Chief Complaint: Syncope/Near-Syncope Time Seen by Provider: 10:10 Travel History International Travel<30 days: No Contact w/Intl Traveler<30days: No Traveled to known affect area: No History of Present Illness HPI This patient brought in by [facility] following a syncopal episode. The syncopal episode happened at a local [employer] [facility]. His mother states that he has a history of dysautonomia and has frequent syncopal events. She states that he was not injured with this event and that she does not really have any concerns following the event. He is back to his baseline. She states that the only reason why he was brought here was because the event happened in a public place. She does state that he is currently on Levaquin for a cough. She states that he was here couple days ago for this and she would like to know the results of his blood culture. She is also requesting a prescription for a cough syrup, specifically Delsym. PFSH Past Medical History ADHD: No Arthritis: Yes (JRA) Asthma: Yes Autoimmune Disease: Yes (decreased IGA, ?JRA, MEN1) Blood Disorders: No Bipolar Disorder: Yes Weight (Kg): 3 Anxiety: Yes Depression: No Cardiovascular Problems: Yes (DISAUTONOMIA) Chemotherapy: No Chest Pain: No Congestive Heart Failure: No COPD: No Cerebrovascular Accident: No Developmental Delay: Yes Diminished Hearing: No Endocrine: Yes Gastrointestinal Disorders: Yes ( INTERMITTENT REFLUX, GERD) GERD: Yes Genitourinary: No Hepatitis: No Hiatal Hernia: No Heparin Induced Thrombocytopen: No Hypertension: No Immune Disorder: Yes (JRA) Implanted Vascular Access Dvce: Yes (PEG TUBE/INFUSA PORT) Medical other: Yes (MITROCHONDRIAL COMPLEX 1MD, SPASTIC PARAPALEGIC, DYSAUTOMONY, MEN 1) Musculoskeletal: Yes (MITOCHONDRIAL COMPLEX 1) Neurologic: Yes (AUTISTIC,SEIZURES) Psychiatric: No Reproductive: No Respiratory: Yes (asthma) Immunizations Current: Yes Migraines: Yes Radiation Therapy: No Renal Failure: No Seizures: Yes ( ) Sickle Cell Disease: No Sleep Apnea: No Thyroid Disease: Yes Ulcer: No Tetanus Vaccination: < 5 Years Influenza Vaccination: No Past Surgical History Abdominal Surgery: Yes (G TUBE X2) AICD: No Body Medical Devices: peg tube Cardiac Surgery: No Ear Surgery: No Endocrine Surgery: No Eye Surgery: No Genitourinary Surgery: No Gynecologic Surgery: No Insulin Pump: No Joint Replacement: No Neurologic Surgery: No Oral Surgery: Yes (T&A) Pacemaker: No Thoracic Surgery: No Tonsillectomy: Yes Tympanostomy Tube: Yes (X2) Other Surgery: Yes (RHINOPLASTY, PORT R CHEST) Social History Alcohol Use: No Tobacco Use: No Substance Use: No Allergies-Medications (Allergen,Severity, Reaction): Coded Allergies: cefuroxime (Verified Allergy, Severe, RASH, 05/11/17) Per Mom. latex (Verified Allergy, Severe, itching, 05/11/17) TONGUE ITCHES Per Mom. oxcarbazepine (Verified Allergy, Severe, NEURO TOXIC, 05/11/17) Per Mom. Reported Meds & Prescriptions Reported Meds & Active Scripts Active Levaquin (Levofloxacin) 750 Mg Tablet 750 Mg PO DAILY Abilify (Aripiprazole) 20 Mg Tab 20 Mg PO 1/2 TAB BID Ativan (Lorazepam) 2 Mg Tab 2 Mg PO Q4HR PRN Quetiapine (Quetiapine Fumarate) 300 Mg Tab 300 Mg PO 2 PO BID Gabapentin 800 Mg Tab 800 Mg PO TID Klonopin (Clonazepam) 1 Mg Tab 2 Mg PO 7AM,12PM AND 7PM Synthroid (Levothyroxine Sodium) 75 Mcg Tab 75 Mcg PO DAILY@0600 Reported Xifaxan (Rifaximin) 550 Mg Tab 550 Mg PO Q12HR Quetiapine (Quetiapine Fumarate) 300 Mg Tab 300 Mg PO HS Quetiapine (Quetiapine Fumarate) 400 Mg Tab 600 Mg PO BID Clonidine ER 12 HR (Clonidine HCl) 0.1 Mg Tab 0.2 Mg PO TID Chlorpromazine (Chlorpromazine HCl) 200 Mg Tab 300 Mg PO HS PRN Zyrtec (Cetirizine HCl) 10 Mg Tablet 10 Mg PO DAILY PRN Nodolor 325-65-100 mg (Isometheptene-Dichloralphenazo) 1 Cap Cap 2 Cap PO AT ONSET OF HEADACHE PRN Fludrocortisone (Fludrocortisone Acetate) 0.1 Mg Tab 0.1 Mg PO BID Zofran (Ondansetron HCl) 4 Mg Tab 4 Mg PO Q6HR PRN Omeprazole 40 Mg Cap 40 Mg PO BID Mobic (Meloxicam) 7.5 Mg Tab 7.5 Mg PO DAILY Review of Systems Except as stated in HPI: all other systems reviewed are Neg Respiratory: Positive: Cough Neurologic: Positive: Syncope Physical Exam Narrative GENERAL: Obese, chronically ill-appearing young man who does not appear to be in any acute distress. SKIN: Warm and dry. HEAD: Atraumatic. Normocephalic. EYES: Pupils equal and round. Extraocular movements are intact. ENT: No nasal bleeding or discharge. Mucous membranes pink and moist. NECK: Trachea midline. CARDIOVASCULAR: Regular rate and rhythm. Heart sounds are normal. RESPIRATORY: No accessory muscle use. Lungs are clear. GASTROINTESTINAL: Abdomen soft, non-tender, nondistended. MUSCULOSKELETAL: Diffuse muscular weakness. NEUROLOGICAL: Awake and alert. No obvious cranial nerve deficits. No lateralizing signs. PSYCHIATRIC: Appropriate mood and affect; insight and judgment normal. Data Data Last Documented VS Vital Signs Date Time Temp Pulse Resp B/P (MAP) Pulse Ox O2 Delivery O2 Flow Rate FiO2 05/11/17 10:20 87 16 98 Room Air 05/11/17 10:02 97.8 140/75 (96) MDM Medical Decision Making Medical Screen Exam Complete: Yes Emergency Medical Condition: Yes Medical Record Reviewed: Yes (this patient has multiple medical problems including muscular dystrophy, dysautonomia, autism) Differential Diagnosis My differential diagnosis of syncope includes but is not limited to cardiac arrhythmia, hypovolemia, anemia, neurological catastrophe, vasovagal response Narrative Course This patient presents following a syncopal episode. He is now back to baseline. He has a history of frequent syncopal episodes. He will be discharged home. The mother did asked that I check his recent blood culture. It is negative. She also asked for a prescription for cough syrup. I will provide this. Diagnosis Primary Impression: Syncope Qualified Codes: R55 - Syncope and collapse Additional Impression: Cough Med/Other Pt SpecificInfo: Prescription(s) given Scripts Dextromethorphan-Guaifenesin Liq (Delsym Cough Chest Congestion) 5-100 Mg/5 Ml Liq 20 ML PO Q6H Y for CHEST CONGESTION AND/OR COUGH, #180 ML 0 Refills Prov: Evelyn Theodore MD 05/11/17 Disposition: 01 DISCHARGE HOME Condition: Stable Evelyn Theodore MD May 11, 2017 10:29
[2017-05-11] MEDS ORDERED: DEXT1LIQ15 PO (10:35)
[2017-05-11 11:05] VITALS: BP 117/65
[2017-05-18] MEDS ORDERED: CLON1 PO (15:21)
[2017-05-18] MEDS ORDERED: GABA800T PO (15:21)
[2017-05-18] MEDS ORDERED: LORA-475 PO (15:22)
[2017-05-18] MEDS ORDERED: CHLO200T5 PO (15:25)
[2017-05-18] MEDS ORDERED: SERO300T PO (15:25)
== END 2017-05-11 11:07 | disposition home or self-care (01) ==
LOC: PHED 09:52
DX: R55 Syncope and collapse (principal); R05 Cough; M08.00 Unspecified juvenile rheumatoid arthritis of unspecified site; F84.0 Autistic disorder; J45.909 Unspecified asthma, uncomplicated; K21.9 Gastro-esophageal reflux disease without esophagitis
CPT/HCPCS: 99283

== ENCOUNTER 2017-05-18 19:14 | Emergency (ER) | payer BC, OTHER ==
[~2017-05-18] VITALS: Ht 193 cm; Wt 110.0 kg
[~2017-05-18 19:14] MED LIST changes: +CLON-409 PO; +DEXT1LIQ15 PO; -GAVICHW3 CHEW; +QUET1TAB11 PO; +SERO300T PO; +XIFA550T4 PO; -[UNRECOGNIZED DRUG - CODE] PO
[2017-05-18 19:40] VITALS: BP 139/66; PULSE 103; RESP 18; TEMP 98.7; O2SAT 98
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
[2017-05-19] MEDS ORDERED: [UNRECOGNIZED DRUG - OTHER] PO (02:12)
[2017-05-19] MEDS ORDERED: KLON2TAB PO (02:12)
[2017-05-19 07:35] VITALS: BP 128/69; PULSE 88; RESP 16; TEMP 98.3; O2SAT 98
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
--- NOTE | 2017-05-19 12:05 | PD ---
History of Present Illness Chief Complaint: Psychiatric Symptoms Time Seen by Provider: 11:30 Travel History International Travel<30 Days: No Contact w/Intl Traveler<30days: No Known affected area: No Legal Status Legal Status: Fuentes Act Fuentes Act Signed By: Noah Montemayor History of Present Illness: Patient is very well known to this physician and was seen by this physician yesterday in psychiatry clinic. Medicines were changed yesterday including an increase in Seroquel and an increase in Thorazine. Patient has periodic explosive episodes for little or no reason. Apparently he had one last night because he could not get his way. However, he has been calm and cooperative here for hours. He denies any suicidal or homicidal ideation, plan or intent. He is verbally oumou for safety. He would like to go home and this physician agrees. Patient is being pleasant and saying "thank you". This physician spoke with the patient's nurse and asked her to relay a message to patient's mother to continue to use med changes. PFSH Past Medical History ADHD: No Arthritis: Yes (JRA) Asthma: Yes Autoimmune Disease: Yes (decreased IGA, ?JRA, MEN1) Blood Disorders: No Bipolar Disorder: Yes Weight (Kg): 3 Anxiety: Yes Depression: No Cardiovascular Problems: Yes (DISAUTONOMIA) Chemotherapy: No Chest Pain: No Congestive Heart Failure: No COPD: No Cerebrovascular Accident: No Developmental Delay: Yes (AUTISM) Diminished Hearing: No Endocrine: Yes Gastrointestinal Disorders: Yes ( INTERMITTENT REFLUX, GERD) GERD: Yes Genitourinary: No Hepatitis: No Hiatal Hernia: No Heparin Induced Thrombocytopen: No Hypertension: No Immune Disorder: Yes (JRA) Implanted Vascular Access Dvce: Yes (PEG TUBE/INFUSA PORT) Medical other: Yes (MITROCHONDRIAL COMPLEX 1MD, SPASTIC PARAPALEGIC, DYSAUTOMONY, MEN 1) Musculoskeletal: Yes (MITOCHONDRIAL COMPLEX 1) Neurologic: Yes (AUTISTIC,SEIZURES) Psychiatric: No Reproductive: No Respiratory: Yes (asthma) Immunizations Current: Yes Migraines: Yes Radiation Therapy: No Renal Failure: No Seizures: Yes ( ) Sickle Cell Disease: No Sleep Apnea: No Thyroid Disease: Yes Ulcer: No Past Surgical History Abdominal Surgery: Yes (G TUBE X2) AICD: No Body Medical Devices: peg tube Cardiac Surgery: No Section: Yes Ear Surgery: No Endocrine Surgery: No Eye Surgery: No Genitourinary Surgery: No Gynecologic Surgery: No Insulin Pump: No Joint Replacement: No Neurologic Surgery: No Oral Surgery: Yes (T&A) Pacemaker: No Thoracic Surgery: No Tonsillectomy: Yes Tympanostomy Tube: Yes (X2) Other Surgery: Yes (RHINOPLASTY, PORT R CHEST) Psychiatric History Psychiatric History Hx Psychiatric Treatment: patient has extensive psych history, including previous admission to [place] and [facility] and [facility]. DIAGNOSED WITH AUTISM. LAST ADMISSION HERE WAS December TO December History of Inpatient Treatment: Yes Guns or firearms in home: No Social History Hx Alcohol Use: No Hx Tobacco Use: No Hx Substance Use: No Hx of Substance Use Treatment: No Allergies-Medications (Allergen,Severity, Reaction): Coded Allergies: cefuroxime (Verified Allergy, Severe, RASH, 05/18/17) Per Mom. latex (Verified Allergy, Severe, itching, 05/18/17) TONGUE ITCHES Per Mom. oxcarbazepine (Verified Allergy, Severe, NEURO TOXIC, 05/18/17) Per Mom. Reported Meds & Prescriptions Reported Meds & Active Scripts Active Ativan (Lorazepam) 2 Mg Tab 2 Mg PO Q4HR PRN Gabapentin 800 Mg Tab 800 Mg PO TID Klonopin (Clonazepam) 1 Mg Tab 2 Mg PO 7AM,12PM AND 7PM Synthroid (Levothyroxine Sodium) 75 Mcg Tab 75 Mcg PO DAILY@0600 Reported Klonopin (Clonazepam) 2 Mg Tab 2 Mg PO DAILY Nodolor 325-65-100 mg (Isometheptene-Dichloralphenazo) 65 Mg-100 Mg-325 Mg Cap 1 Tab PO DIRECTED Xifaxan (Rifaximin) 550 Mg Tab 550 Mg PO Q12HR Quetiapine (Quetiapine Fumarate) 400 Mg Tab 600 Mg PO BID Clonidine ER 12 HR (Clonidine HCl) 0.1 Mg Tab 0.2 Mg PO TID Chlorpromazine (Chlorpromazine HCl) 200 Mg Tab 400 Mg PO BID PRN Zyrtec (Cetirizine HCl) 10 Mg Tablet 10 Mg PO DAILY PRN Nodolor 325-65-100 mg (Isometheptene-Dichloralphenazo) 1 Cap Cap 2 Cap PO AT ONSET OF HEADACHE PRN Fludrocortisone (Fludrocortisone Acetate) 0.1 Mg Tab 0.1 Mg PO BID Zofran (Ondansetron HCl) 4 Mg Tab 4 Mg PO Q6HR PRN Omeprazole 40 Mg Cap 40 Mg PO BID Mobic (Meloxicam) 7.5 Mg Tab 7.5 Mg PO DAILY Review of Systems Except as stated in HPI: all other systems reviewed are Neg Exam Alert: Yes [place]: Person, Place, Date, Situation Mood: Calm Affect: Appropriate Speech: Clear Eye Contact: Normal Memory Intact: Immediate, Recent, Remote Delusions: No Insight/Judgement impaired but baseline. MDM Medical Decision Making Medical Record Reviewed: Yes Assessment/Plan This physician spoke with the patient, spoke with the nurse and reviewed the medical record. Patient does not qualify for involuntary hospitalization. Fuentes act being lifted and patient being discharged home. Orders Orders Ct Cerv Spine W/O Contrast (05/18/17 ) Psych Screen (05/18/17 21:58) Diet Tube Feed Only (05/19/17 Breakfast) Tube Feeding 08,20 (05/18/17 23:32) Equip, Feeding Pump Use Of (05/19/17 01:50) Results Vital Signs Date Time Temp Pulse Resp B/P (MAP) Pulse Ox O2 Delivery O2 Flow Rate FiO2 05/19/17 07:35 98.3 88 16 128/69 (88) 98 Room Air 05/18/17 19:40 98.7 103 18 139/66 (90) 98 05/18/17 19:40 102 18 Diagnosis Primary Impression: Intermittent explosive disorder in adult Departure Forms: Tests/Procedures Patient Instructions: General Instructions Disposition: 01 DISCHARGE HOME Condition: Stable Wilberto Szymanski MD May 19, 2017 12:05
[2017-05-19 12:45] VITALS: BP 131/72; PULSE 84; RESP 18; O2SAT 97
== END 2017-05-19 13:34 | disposition home or self-care (01) ==
LOC: NEPD 19:14
DX: F63.81 Intermittent explosive disorder (principal); M54.2 Cervicalgia; F84.0 Autistic disorder; F31.9 Bipolar disorder, unspecified; F41.9 Anxiety disorder, unspecified; M08.00 Unspecified juvenile rheumatoid arthritis of unspecified site; K21.9 Gastro-esophageal reflux disease without esophagitis; R56.9 Unspecified convulsions; J45.909 Unspecified asthma, uncomplicated
CPT/HCPCS: 72125; 99284

== ENCOUNTER 2017-05-22 00:40 | Emergency (ER) | payer BC, OTHER ==
[~2017-05-22 00:40] MED LIST changes: -ARIP1TAB7 PO; -DEXT1LIQ15 PO; +KLON2TAB PO; -LEVA750T9 PO; -QUET1TAB10 PO; -SERO300T PO
[2017-05-22 01:17] LABS: BLOOD GAS BASE EXCESS -10.2 mmol/L (-2-2); BLOOD GAS CARBOXYHEMOGLOBIN 1.3 % (0-4); BLOOD GAS HCO3 16 mmol/L (22-26); BLOOD GAS O2 HGB SATURATION 95 % (90-100); BLOOD GAS PCO2 39 mmHG (38-42); BLOOD GAS PO2 119 mmHG (61-120); BLOOD GAS TOTAL HGB 9.6 G/DL (12.0-16.0); TEMP CORR TO 98.6
[2017-05-22 01:18] LABS: CRITICAL VALUE YES; DRAW SITE LT BRACHIAL; FIO2 100 %; LITER FLOW 15 L/M; NUMBER OF ARTERIAL PUNCTURES 3; OXYGEN DEVICE AMBU; STAT YES
--- NOTE | 2017-05-22 01:21 | PD ---
HPI Chief Complaint: Code Blue Time Seen by Provider: 01:21 Travel History International Travel<30 days: No Contact w/Intl Traveler<30days: No Traveled to known affect area: No History of Present Illness HPI 21-year-old male presents to the emergency department by EMS transport from home where he was found to be in cardiac arrest. According to family members at home patient had been eating a [employer] peanut butter sandwich became choked and family members attempted numerous times time what maneuver to dislodge aspirated peanut butter sandwich. Upon rescue arrival patient was not receiving bystander CPR. Upon their initial assessment patient was unresponsive , breathing no pulse and found to be monitored in PEA. According to application integrator report it was very difficult to obtain an airway on the patient but finally a Combitube was successfully inserted with good auscultation bilateral breath sounds. Patient had IO access for IV fluids and received 6 A of epinephrine via IO en route to the hospital and 2 amps of sodium bicarbonate. Upon patient' s arrival to the emergency department while on the EMS stretcher breath sounds were auscultated and bilateral breath sounds were readily heard with assistance of Ambu ventilations. Patient was transferred from EMS stretcher to the ED stretcher and again auscultation of breath sounds was confirmed. No gastric sounds were auscultated. CPR and ACLS resuscitative measures were continued in the emergency department. Please see code summary. PFSH Past Medical History Narrative Medical Asthma arthritis bipolar disorder intermittent explosive disorder dysautonomia seizures autism mitochondrial complex 1 G-tube ADHD: No Arthritis: Yes (JRA) Asthma: Yes Autoimmune Disease: Yes (decreased IGA, ?JRA, MEN1) Blood Disorders: No Bipolar Disorder: Yes Anxiety: Yes Depression: No Cardiovascular Problems: Yes (DISAUTONOMIA) Chemotherapy: No Chest Pain: No Congestive Heart Failure: No COPD: No Cerebrovascular Accident: No Developmental Delay: Yes (AUTISM) Diminished Hearing: No Endocrine: Yes Gastrointestinal Disorders: Yes ( INTERMITTENT REFLUX, GERD) GERD: Yes Genitourinary: No Hepatitis: No Hiatal Hernia: No Heparin Induced Thrombocytopen: No Hypertension: No Immune Disorder: Yes (JRA) Implanted Vascular Access Dvce: Yes (PEG TUBE/INFUSA PORT) Musculoskeletal: Yes (MITOCHONDRIAL COMPLEX 1) Neurologic: Yes (AUTISTIC,SEIZURES) Psychiatric: No Reproductive: No Respiratory: Yes (asthma) Immunizations Current: Yes Migraines: Yes Radiation Therapy: No Renal Failure: No Seizures: Yes ( ) Sickle Cell Disease: No Sleep Apnea: No Thyroid Disease: Yes Ulcer: No Past Surgical History Abdominal Surgery: Yes (G TUBE X2) AICD: No Body Medical Devices: peg tube Cardiac Surgery: No Section: Yes Ear Surgery: No Endocrine Surgery: No Eye Surgery: No Genitourinary Surgery: No Gynecologic Surgery: No Insulin Pump: No Joint Replacement: No Neurologic Surgery: No Oral Surgery: Yes (T&A) Pacemaker: No Thoracic Surgery: No Tonsillectomy: Yes Tympanostomy Tube: Yes (X2) Other Surgery: Yes (RHINOPLASTY, PORT R CHEST) Social History Alcohol Use: No Tobacco Use: No Substance Use: No Allergies-Medications (Allergen,Severity, Reaction): Coded Allergies: cefuroxime (Verified Allergy, Severe, RASH, 05/18/17) Per Mom. latex (Verified Allergy, Severe, itching, 05/18/17) TONGUE ITCHES Per Mom. oxcarbazepine (Verified Allergy, Severe, NEURO TOXIC, 05/18/17) Per Mom. Reported Meds & Prescriptions Reported Meds & Active Scripts Active Ativan (Lorazepam) 2 Mg Tab 2 Mg PO Q4HR PRN Gabapentin 800 Mg Tab 800 Mg PO TID Klonopin (Clonazepam) 1 Mg Tab 2 Mg PO 7AM,12PM AND 7PM Synthroid (Levothyroxine Sodium) 75 Mcg Tab 75 Mcg PO DAILY@0600 Reported Klonopin (Clonazepam) 2 Mg Tab 2 Mg PO DAILY Nodolor 325-65-100 mg (Isometheptene-Dichloralphenazo) 65 Mg-100 Mg-325 Mg Cap 1 Tab PO DIRECTED Xifaxan (Rifaximin) 550 Mg Tab 550 Mg PO Q12HR Quetiapine (Quetiapine Fumarate) 400 Mg Tab 600 Mg PO BID Clonidine ER 12 HR (Clonidine HCl) 0.1 Mg Tab 0.2 Mg PO TID Chlorpromazine (Chlorpromazine HCl) 200 Mg Tab 400 Mg PO BID PRN Zyrtec (Cetirizine HCl) 10 Mg Tablet 10 Mg PO DAILY PRN Nodolor 325-65-100 mg (Isometheptene-Dichloralphenazo) 1 Cap Cap 2 Cap PO AT ONSET OF HEADACHE PRN Fludrocortisone (Fludrocortisone Acetate) 0.1 Mg Tab 0.1 Mg PO BID Zofran (Ondansetron HCl) 4 Mg Tab 4 Mg PO Q6HR PRN Omeprazole 40 Mg Cap 40 Mg PO BID Mobic (Meloxicam) 7.5 Mg Tab 7.5 Mg PO DAILY Review of Systems ROS Limitations: Clinical Condition, Unresponsive Physical Exam Narrative GENERAL: Well-developed well-nourished male presents unresponsive with CPR compressions and assisted ventilations in progress monitored in bradycardic PEA , GCS 3 SKIN: Cool and dry. HEAD: Normocephalic. EYES: Pupils fixed and dilated NECK: Supple, trachea midline. No JVD or lymphadenopathy. CARDIOVASCULAR: No heart sounds to auscultation no pulse to palpation at the carotid and brachial or the femoral arteries except with compressions. RESPIRATORY: Breath sounds are equal and only auscultated with assistance of ambu ventilations GASTROINTESTINAL: Abdomen soft, nondistended to sounds with assisted ventilations; PEG tube in place. MUSCULOSKELETAL: No cyanosis, or edema. Left lower extremity with proximal tibial IO Data Data Orders Orders Arterial Blood Gas (Abg) (05/22/17 00:42) Labs Laboratory Tests Test 05/22/17 00:42 Blood Gas Puncture Site LT BRACHIAL Blood Gas Patient Temperature 98.6 Blood Gas HCO3 16 mmol/L Blood Gas Base Excess -10.2 mmol/L Blood Gas Oxygen Saturation 95 % Arterial Blood pH 7.23 Arterial Blood Partial Pressure CO2 39 mmHG Arterial Blood Partial Pressure O2 119 mmHG Arterial Blood Oxygen Content 13.0 Vol % Arterial Blood Carboxyhemoglobin 1.3 % Arterial Blood Methemoglobin 1.0 % Blood Gas Hemoglobin 9.6 G/DL Oxygen Delivery Device AMBU Blood Gas Liter Flow 15 L/M Blood Gas Inspired Oxygen 100 % [facility] Medical Decision Making Medical Screen Exam Complete: Yes Emergency Medical Condition: Yes Medical Record Reviewed: Yes Interpretation(s) ABG: pH 7.23, pCO2 39, pO2 119, HCO3 16, BE-10 Differential Diagnosis Aspiration respiratory arrest dysrhythmia cardiac arrest Narrative Course 21-year-old male with witnessed food aspiration and cardiopulmonary arrest with advanced cardiac life support intervention in progress upon arrival with successful Combitube insertion with bilateral breath sounds with assisted ventilations, good color change with CO2 detector. In field resuscitation duration was estimated about approximately 30-35 minutes. Ongoing ventilation support and compressions were performed as well as additional epinephrine administration and sodium bicarbonate administration. Additional IO access and left external jugular vein IV access obtained. ABG performed which consistent with a metabolic acidosis of pH 7.23 PCO2 39 PO2 119 bicarbonate 16 and base excess of -10. Family brought to bedside during resuscitative efforts. Bedside ultrasound identifies an minimal cardiac activity however attempt at pacing was performed and there was no successful capture. Additional chemical resuscitative measures with epinephrine and bicarbonate administered. Patient continued to remain in PEA and patient . Family reports that patient had had a normal day around midnight requested something to eat with his behaving in his usual manner with some acting out and agitation and eating a peanut butter sandwich and sure thereafter started to choke on the sandwich and mother attempted numerous times to clear his airway and to perform a Heimlich and reports that patient vomited some of the peanut butter sandwich that he had aspirated; the mother called her for help to call 911; no report of fall or injury. Shortly thereafter rescue/EMS arrived and took over the management of the patient. Patient was pronounced at 1:11 AM; family at bedside. Call placed to biomedical equipment specialist and patient's primary. The [place] has accepted the case. Diagnosis Primary Impression: Cardiopulmonary arrest Additional Impression: Aspiration of food Qualified Codes: T17.890A - Other foreign object in other parts of respiratory tract causing asphyxiation, initial encounter Disposition: 20 Condition: Miranda Flores MD May 22, 2017 01:21
== END 2017-05-22 04:08 | disposition expired ==
LOC: PHED 00:40
DX: T17.890A Other foreign object in other parts of respiratory tract causing asphyxiation, initial encounter (principal); I46.8 Cardiac arrest due to other underlying condition
CPT/HCPCS: 36600; 82805; 92950